=== PATIENT | male | born 1955 | race Caucasian/White ===

== ENCOUNTER 2019-07-15 09:29 | Outpatient (CLI) | payer MEDICARE, MEDICAID, SELFPAY ==
--- NOTE | 2019-07-15 09:33 | ECG_ITS ---
Measurements Intervals [place] Rate: 92 P: 25 [place]: 136 QRS: 19 QRSD: 146 T: 33 QT: 391 QTc: 484 Interpretive Statements SINUS RHYTHM RIGHT BUNDLE BRANCH BLOCK BASELINE ARTIFACT- I, II, III, AVR, AVL, AVF ABNORMAL ECG Electronically Signed On 07-15-2019 10:33:12 VICE PRESIDENT OF OPERATIONS by Waldemar Hedrick D.O.
== END 2019-07-15 09:30 | disposition home or self-care (01) ==
LOC: ANHSURGERY 09:33
PROVIDERS: PCP Internal Medicine; Visit Provider Orthopaedic Surgery
DX: I10 Essential (primary) hypertension (principal); Z01.812 Encounter for preprocedural laboratory examination; I45.10 Unspecified right bundle-branch block; R94.31 Abnormal electrocardiogram [ECG] [EKG]
CPT/HCPCS: 93005

== ENCOUNTER 2019-07-22 00:59 | Day surgery (SDC) | payer MEDICARE, MEDICAID, SELFPAY ==
[2019-07-14 08:50] VITALS: BMI 23.7
[2019-07-22] VITALS (9 sets, daily range): BP systolic 106–142; BP diastolic 60–81; PULSE 70–95; RESP 10–20; TEMP 36.5–36.6; O2SAT 93–100
--- NOTE | 2019-07-22 06:40 | WPDHPUPDATE1 ---
History and Physical Update Update Date/Time: 07/22/19 06:40 History and Physical has been reviewed, including an updated exam of the patient. There are NO changes in the patient's condition. Risks, benefits, and alternatives have been discussed and questions answered. Patient agrees to proceed with procedure.
[2019-07-22] MEDS: LACTATED RINGERS 1,000 ML 30 ML IV CONT ×2 (08:40→12:19)
--- NOTE | 2019-07-22 08:51 | WPDANESEPPF ---
Anes - Initial Pre Proc Eval Procedure: Operation Date: 07/22/19 10:00 Proposed Procedures p Right Shoulder Arthroscopy With Debridement, Biceps Tenodesis - Dain Olvera MD Date/Time: 07/22/19 08:51 Surgeon: Dain Olvera MD Pre Op Diagnosis: right shoulder biceps tear, rt shoulder arthritis Patient Data Age: 63 Gender: M Height: 1.85 m Weight: 81.65 kg Allergies Allergy/AdvReac Type Severity Reaction Status Date / Time lisinopril Allergy Unknown Swelling Verified 07/14/19 08:51 of Lip/Tongue/Throat Home Medications Medication Instructions Recorded Confirmed Type diltiazem HCl 240 mg 240 mg PO DAILY 04/26/19 07/14/19 History capsule,extended release 24 hr losartan 100 mg tablet 100 mg PO DAILY 04/26/19 07/14/19 History doxepin 10 mg capsule 10 mg PO DAILY #30 cap 06/10/19 07/14/19 Rx gabapentin 600 mg tablet 600 mg PO HS 06/10/19 07/14/19 History fluticasone propionate 50 2 spray NASAL DAILY #9.9 ml 07/12/19 07/14/19 Rx mcg/actuation nasal spray,suspension Vitamin B-12 1 tablet PO DAILY 07/14/19 07/14/19 History ascorbic acid (vitamin C) [Vitamin 1 g PO DAILY 07/14/19 07/14/19 History C] ECG: Date of Service: 07/15/19 Procedure(s): CA 12 lead EKG Accession Number(s): [id number] cc: ~ Measurements Intervals [place] Rate: 92 P: 25 [place]: 136 QRS: 19 QRSD: 146 T: 33 QT: 391 QTc: 484 Interpretive Statements SINUS RHYTHM RIGHT BUNDLE BRANCH BLOCK BASELINE ARTIFACT- I, II, III, AVR, AVL, AVF ABNORMAL ECG Electronically Signed On 07-15-2019 10:33:12 INSTRUCTIONAL COORDINATOR by Waldemar Hedrick D.O. Dictated By: Waldemar Hedrick DO 07/15/19 1000 Patient hx anesthesia problems: none Family hx anesthesia problems: none PMFSH Past Medical History Medical History (Updated 07/22/19 @ 08:52 by Jorje Stevens MD) Anxiety Arthritis Chronic neck and back pain Degenerative arthritis of right shoulder region Hypertension Labral tear of long head of biceps tendon Surgical History Surgical History H/O neck surgery Plate and screws: 2004 Status post spinal disc removal Low back disc removed 1996 Family History Family History (Updated 07/13/19 @ 13:53 by Radha Oneill, RT(R)) Mother Kidney disease Other Arthritis Social History Social History (Updated 07/13/19 @ 13:53 by Radha Oneill, RT(R)) Smoking status: Former smoker Smoking end date: 05/26/95 Alcohol intake: current Anes - Eval Final PreProcedure Day of Procedure 07/22/19 08:51 Patient weight: normal Heart: regular rate and rhythm Lungs: clear to auscultation and normal air movement Airway: Mallampati scale class II Neurological: alert and oriented Last oral intake: >/= 8 hours ASA classification: II Emergent: no Anesthetic plan: proceed Anesthesia type and monitoring: general LMA Informed Consent: The patient's anesthetic plan and its attendant risks and benefits were discussed with the patient/family/POA. Questions were solicited and answers provided to the satisfaction of the patient/family/POA.
[2019-07-22] MEDS: IBUPROFEN IV 800 MG/200 ML 800 MG/200 ML BAG 400 MG IVPB (09:45)
--- NOTE | 2019-07-22 10:15 | WPDANESEFPP ---
Anes - Eval Final PreProcedure Day of Procedure 07/22/19 10:15 Patient weight: normal Heart: regular rate and rhythm Lungs: clear to auscultation Airway: Mallampati scale class II Neurological: alert and oriented Last oral intake: >/= 8 hours ASA classification: III Emergent: no Anesthetic plan: proceed Anesthesia type and monitoring: general LMA and standard monitoring Other findings: chronic pain syndrome disabled Informed Consent: The patient's anesthetic plan and its attendant risks and benefits were discussed with the patient/family/POA. Questions were solicited and answers provided to the satisfaction of the patient/family/POA.
[2019-07-22] MEDS: ceFAZolin 2 GM/D5W 50 ML 2 GM/50 ML BAG IVPB (10:34)
[2019-07-22] MEDS: BUPIVACAINE/EPINEPHRINE 0.5% 30 ML VIAL 20 ML INFILTRATE (11:15)
--- NOTE | 2019-07-22 11:50 | PM.PROC ---
Procedure Note - Detailed Date of procedure: 07/22/19 Pre-op diagnosis: right shoulder biceps tear, rt shoulder arthritis Post-op diagnosis: same Procedure performed: Right shoulder arthroscopy with debridement, biceps tenotomy, subacromial debridement Description of procedure: Indications: Patient is a 63-year-old gentleman from pain, stiffness and weakness. MRI demonstrates tear of the probe biceps tendon at the labral anchor degenerative changes. He has failed conservative treatment physical therapy, home exercises cortisone injections. He presents now for operative treatment. What was done: Patient identified in the preoperative holding. Informed consent given. Operative extremity marked. Patient received intravenous antibiotics. Patient brought to the operating room where underwent general anesthetic by anesthesia team. Positioned supine on operating room table. Time-out performed confirming the patient, site of the surgery and the plan. Patient was then positioned in the beach chair position with careful securing of the head and neck. Right shoulder was then prepped and draped usual sterile surgical fashion using a ChloraPrep skin solution. Local anesthetic with 0.5% Marcaine with epinephrine was used at the portal sites. Standard posterior arthroscopy portal position with a 22 gauge spinal needle and infiltrating of the joint with saline. Eleven blade knife used to incise the skin and blunt penetration of the soft tissue and posterior capsule. Camera and inflow restarted through this portal. The shoulder was inspected and findings were noted. Anterior portal was then made using positioning from a 22 gauge spinal needle, 11 blade knife for the skin and blunt penetration of the anterior capsule. 4.5 mm arthroscopic shaver introduced and a debridement of the shoulder joint was performed including the glenoid and humeral head, undersurface of the rotator cuff, labrum and biceps anchor. Arthroscopic wand introduced in bleeding points were coagulated. Any excess synovitis was removed with the Wand. The proximal biceps was then released with the arthroscopic Wand. There was partial retraction of the tendon but not complete retraction. There is also adherence to the bicipital groove and the synovium and tenodesis was not felt to be indicated. The arthroscope was then positioned into the subacromial space. A lateral portal was made with 11 blade knife and blunt penetration and the shaver was introduced and debridement of the subacromial bursa was performed. Wounds thoroughly irrigated antibiotic solution. Subcutaneous tissue repaired with 3 0 Monocryl interrupted suture and the skin repaired with 3 Monocryl subcuticular running stitch. Steri-Strips applied followed by sterile dressing. Patient then awoke from anesthesia, extubated and taken to the recovery room in stable condition. All sponge needle and instrument counts correct in the case. 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 Degenerative tear biceps tendon at the anchor. Degenerative tear subscapularis. Rotator cuff supraspinatus and infraspinatus tendinitis with partial articular sided tear approximately 30%.
== END 2019-07-22 13:30 | disposition home or self-care (01) ==
PROVIDERS: PCP Internal Medicine; Visit Provider Orthopaedic Surgery
PROC: (CPT 29805; principal; 2019-07-22 10:00)
DX: M75.81 Other shoulder lesions, right shoulder (principal); M75.101 Unspecified rotator cuff tear or rupture of right shoulder, not specified as traumatic; M19.011 Primary osteoarthritis, right shoulder; M94.211 Chondromalacia, right shoulder; I10 Essential (primary) hypertension; F41.9 Anxiety disorder, unspecified; Z87.891 Personal history of nicotine dependence
CPT/HCPCS: 29823; A4565; J0690; J1100; J1741; J2250; J2270; J2370; J2405; J2704; J3010; J7120

== ENCOUNTER 2019-07-26 06:03 | Emergency (ER) | payer MEDICARE, MEDICAID, SELFPAY ==
--- NOTE | ~2019-07-26 | XR_ITS ---
EXAMINATION: XR shoulder RT min 2V DATE: 07/26/2019 06:47 INDICATION: Postoperative right shoulder pain. TECHNIQUE: AP internally rotated, AP oblique externally rotated and transscapular Y views of the righ t shoulder were obtained. COMPARISON: None FINDINGS: Normal alignment. No fracture.Minimal glenohumeral osteoarthritis. Mild to moderate acromioclavicula r osteoarthritis. C6-C7 anterior spinal fusion with anterior plate and screw fixation. Soft tissues a re unremarkable. Visualized portions of the right lung are clear. Mild discoid atelectasis in the lef t lower lung zone. IMPRESSION: Minimal right glenohumeral and mild to moderate acromioclavicular osteoarthritis. No acute osseous ab normality. Reviewed, dictated and finalized at location A. GRINDER IMPRESSION: Minimal right glenohumeral and mild to moderate acromioclavicular osteoarthriti s. No acute osseous abnormality.
--- NOTE | ~2019-07-26 | XR_ITS ---
EXAMINATION: XR elbow RT min 3V DATE: 07/26/2019 06:46 INDICATION: Postoperative right elbow pain TECHNIQUE: Anteroposterior, two oblique and lateral views of the right elbow were obtained. COMPARISON: None. FINDINGS: Alignment is normal. No fracture. Mild osteoarthritis at the right elbow. Corticated heterotopic ossi cles between the tip of the olecranon and the olecranon fossa. There appears be a right elbow joint e ffusion with displacement of the anterior and posterior fat pads. IMPRESSION: 1. Mild osteoarthritis at the right elbow with elbow joint effusion. Reviewed, dictated and finalized at location A. GER GENERAL
--- NOTE | 2019-07-26 06:04 | ED.GENADULT ---
HPI - General Adult General Chief complaint: Extremity Injury, Upper Stated complaint: R arm pain/surgery 4 days ago Time Seen by Provider: 07/26/19 06:04 Source: patient Mode of arrival: ambulatory Limitations: no limitations History of Present Illness HPI narrative: Patient is a 63-year-old male who presents to the emergency department for evaluation of right shoulder pain. Patient with recent right shoulder arthroscopy with debridement, biceps tenotomy, subacromial debridement performed by Dr. Olvera on 07/22. Patient reports a 2-day history of worsening right shoulder pain, described as sharp, burning in nature which originates in the shoulder, travels down the elbow and into his wrist. He reports tingling in this arm, but that it only occurs with movement. He reports it as a spasm type pain. His pain medication prescribed is not relieving this. He reports some tingling in his right hand. He denies any numbness. No difficulty moving his fingers. Patient denies fever, chills, neck pain, trauma or falls. Patient is scheduled for follow-up on August [address] Olvera's office. Related Data Home Medications Medication Instructions Recorded Confirmed diltiazem HCl 240 mg 240 mg PO DAILY 04/26/19 07/22/19 capsule,extended release 24 hr losartan 100 mg tablet 100 mg PO DAILY 04/26/19 07/22/19 gabapentin 600 mg tablet 600 mg PO HS 06/10/19 07/22/19 Vitamin B-12 1 tablet PO DAILY 07/14/19 07/22/19 ascorbic acid (vitamin C) [Vitamin 1 g PO DAILY 07/14/19 07/22/19 C] Allergies Allergy/AdvReac Type Severity Reaction Status Date / Time lisinopril Allergy Unknown Swelling Verified 07/26/19 06:18 of Lip/Tongue/Throat Review of Systems Review of Systems: Narrative: CONSTITUTIONAL: Denies fever, chills, or sweats. CARDIOVASCULAR: Denies chest pain RESPIRATORY: Denies cough or dyspnea. GASTROINTESTINAL: Denies abdominal pain GENITOURINARY: Denies dysuria or hematuria. SKIN: Denies rash or itching. MUSCULOSKELETAL: Denies back pain, reports right shoulder pain NEUROLOGIC: Denies numbness or weakness, reports tingling in the right arm PMFSH Past Medical History Medical History Anxiety Arthritis Chronic neck and back pain Degenerative arthritis of right shoulder region Hypertension Labral tear of long head of biceps tendon Surgical History Surgical History H/O neck surgery Plate and screws: 2005 Status post spinal disc removal Low back disc removed 1996 Family History Family History Mother Kidney disease Other Arthritis Social History Social History Smoking status: Former smoker Smoking end date: 05/26/95 Alcohol intake: current Exam Narrative: Exam Narrative: GENERAL: Awake, alert, conversant HEAD: Normocephalic, atraumatic. EYES: PERRLA and EOMI. ENT: Nares clear, no rhinorrhea or epistaxis. Mucous membranes moist. NECK: Supple. CHEST: Clear to auscultation. No respiratory distress. HEART: Regular rate and rhythm. No murmur heard. Normal peripheral pulses. ABDOMEN: Soft, nontender, nondistended, normal active bowel sounds. EXTREMITIES: Sling over the right shoulder. 3 incision sites, clean, dry, intact. Minimal ecchymoses. No erythema, edema. No active bleeding. No sign of wound breakdown or incision site infection. Intact sensation over the deltoid. There is elicited pain at the insertion point of the biceps, the lateral epicondyle. Intact sensation median, ulnar, radial nerve distribution. Radial pulses 2+. Financial Intern strength is 5 out of 5. SKIN: Warm, dry, no rash. NEURO: No focal deficits. Alert and oriented x3 Course Vital Signs Vital signs: Vital Signs Temperature 36.4 C 07/26/19 06:09 Pulse Rate 104 H 07/26/19 06:09 Respiratory Rate 20 07/26/19
[2019-07-26 06:09] VITALS: BP 121/70; PULSE 104; RESP 20; TEMP 36.4; O2SAT 100
[2019-07-26] MEDS: IBUPROFEN 600 MG TABLET PO (07:01)
[2019-07-26] MEDS: DIAZEPAM 5 MG TABLET PO (07:01)
[2019-07-26 08:00] VITALS: BP 125/78; PULSE 94; RESP 16; O2SAT 97
== END 2019-07-26 08:02 | disposition home or self-care (01) ==
PROVIDERS: Emergency Provider Emergency Medicine; PCP Internal Medicine
DX: G89.18 Other acute postprocedural pain (principal); M54.10 Radiculopathy, site unspecified; M19.90 Unspecified osteoarthritis, unspecified site; I10 Essential (primary) hypertension; Z87.891 Personal history of nicotine dependence
CPT/HCPCS: 73030; 73080; 99282; 99284; A9270

== ENCOUNTER 2020-02-12 09:49 | Outpatient (CLI) | payer MEDICARE, MEDICAID, SELFPAY ==
[2020-02-12 10:06] LABS: Basophils Absolute Auto 0.1 K/mm3 (0.0-0.1); Basophils Percent Auto 1.4 % (0.2-1.2); Eosinophils Absolute Auto 0.5 K/mm3 (0-0.3); Eosinophils Percent Auto 7.8 % (0-4.4); Hematocrit 36.3 % (42.0-52.0); Hemoglobin 12.6 g/dL (14.0-18.0); Immature Granulocyte Absolute 0.05 K/mm3 (0.00-0.031); Immature Granulocyte Percent A 0.7 % (0-0.5); Lymphocytes Absolute Auto 1.14 K/mm3 (0.9-3.2); Lymphocytes Percent Auto 16.5 % (18.3-44.2); Mean Corpuscular HGB Conc 34.7 g/dl (32-36); Mean Corpuscular Hemoglobin 34.4 pg (26-34); Mean Corpuscular Volume 99.2 fl (80-100); Mean Platelet Volume 8.9 fl (7.4-10.4); Monocytes Absolute Auto 0.9 K/mm3 (0.1-0.6); Monocytes Percent Auto 13.3 % (2.6-8.5); Neutrophils Absolute Auto 4.2 K/mm3 (1.3-6.7); Neutrophils Percent Auto 60.3 % (45.5-73.1); Platelet Count Result 208 k/mm3 (150-375); Red Blood Count 3.66 M/mm3 (4.6-6.20); Red Cell Distribution Width 12.7 % (11.5-14.5); White Blood Count 6.9 K/mm3 (4.5-10.0)
[2020-02-12 10:28] LABS: LDL Cholesterol Direct 62 mg/dL
[2020-02-12 10:33] LABS: Alanine Aminotransferase 38 U/L (4-50); Albumin Level 4.4 g/dL (3.5-5.1); Alkaline Phosphatase 139 U/L (38-126); Amylase 74 U/L (30-110); Anion Gap 6 mmol/L (8-16); Aspartate Amino Transferase 54 U/L (17-59); Bilirubin,Total 0.7 mg/dL (0.2-1.3); Blood Urea Nitrogen 14 mg/dL (9-20); Calcium 9.5 mg/dL (8.4-10.2); Carbon Dioxide 24 mmol/L (22-30); Chloride 104 mmol/L (98-107); Cholesterol 214 mg/dL (0-200); Estimated Glomerular Filt Rate > 60; Glucose 98 mg/dL (75-110); Lipase 81 U/L (23-300); Potassium 4.8 mmol/L (3.4-5.0); Sodium 134 mmol/L (137-145); Triglycerides 40 mg/dL (<150)
[2020-02-12 11:12] LABS: HDL Direct 134 mg/dL
== END 2020-02-12 09:50 | disposition home or self-care (01) ==
PROVIDERS: PCP Internal Medicine; Visit Provider Clinical Nurse Specialist
DX: R10.9 Unspecified abdominal pain (principal); I10 Essential (primary) hypertension
CPT/HCPCS: 36415; 80053; 80061; 82150; 83690; 85025

== ENCOUNTER 2020-03-13 00:44 | Outpatient (CLI) | payer MEDICARE, MEDICAID, SELFPAY ==
[2020-03-13 17:41] LABS: SARS-CoV-2 RNA PCR Negative
== END 2020-03-13 00:45 | disposition home or self-care (01) ==
LOC: ANHCOVIDDT 00:44
PROVIDERS: PCP Internal Medicine; Visit Provider Internal Medicine Gastroenterology
DX: Z01.812 Encounter for preprocedural laboratory examination (principal); Z20.828 Contact with and (suspected) exposure to other viral communicable diseases
CPT/HCPCS: 87635; C9803; U0003

== ENCOUNTER 2020-03-15 01:49 | Day surgery (SDC) | payer MEDICARE, MEDICAID, SELFPAY ==
[2020-03-09 12:56] VITALS: BMI 24.4
[2020-03-15 11:38] VITALS: BP 124/60; PULSE 88; RESP 20; TEMP 36.4; O2SAT 99; BMI 23.4
--- NOTE | 2020-03-15 11:38 | WPDHPUPDATE1 ---
History and Physical Update Update Date/Time: 03/15/20 11:38 History and Physical has been reviewed, including an updated exam of the patient. There are NO changes in the patient's condition. Risks, benefits, and alternatives have been discussed and questions answered. Patient agrees to proceed with procedure.
[2020-03-15] MEDS: LACTATED RINGERS 1,000 ML 150 ML IV CONT (11:40)
--- NOTE | 2020-03-15 11:42 | WPDANESEPPF ---
Anes - Initial Pre Proc Eval Procedure: Operation Date: 03/15/20 12:30 Proposed Procedures p Colonoscopy - Todd Wood MD Date/Time: 03/15/20 11:42 Surgeon: Todd Wood MD Pre Op Diagnosis: Abdominal Pain Patient Data Age: 64 Gender: M Height: 6 ft 1 in Weight: 80.7 kg Last Vital Signs Temp 97.6 F 03/15/20 11:38 Pulse 88 03/15/20 11:38 Resp 20 03/15/20 11:38 BP 124/60 03/15/20 11:38 Pulse Ox 99 03/15/20 11:38 Allergies Allergy/AdvReac Type Severity Reaction Status Date / Time lisinopril Allergy Unknown Swelling Verified 03/09/20 12:47 of Lip/Tongue/Throat Home Medications Medication Instructions Recorded Confirmed Type diltiazem HCl 240 mg 240 mg PO DAILY 04/26/19 03/15/20 History capsule,extended release 24 hr losartan 100 mg tablet 100 mg PO DAILY 04/26/19 03/15/20 History gabapentin 600 mg tablet 600 mg PO HS 06/10/19 03/09/20 History Vitamin B-12 1 tablet PO DAILY 07/14/19 03/09/20 History ascorbic acid (vitamin C) [Vitamin 1 g PO DAILY 07/14/19 03/09/20 History C] ondansetron HCl [Zofran] 8 mg PO Q8H PRN #10 tablet 07/22/19 03/09/20 Rx peg 3350-electrolytes 236 240 ml PO Q10M #4000 ml 02/21/20 Rx gram-22.74 gram-6.74 gram-5.86 gram solution Patient hx anesthesia problems: none Family hx anesthesia problems: none PMFSH Past Medical History Medical History (Updated 02/17/20 @ 08:32 by Todd Wood MD) Alcohol abuse Alkaline phosphatase elevation Anxiety Arthritis Chronic neck and back pain Degenerative arthritis of right shoulder region Hypertension Labral tear of long head of biceps tendon Surgical History Surgical History H/O neck surgery Plate and screws: 2004 H/O shoulder surgery Status post spinal disc removal Low back disc removed 1996 Family History Family History Mother Kidney disease Other Arthritis Social History Social History Smoking status: Former smoker Tobacco type: cigarettes Smoking end date: 05/26/95 Alcohol intake: current Drinks per week: 7 Alcohol use details: 1 beer a day Substance use: unknown Substance use type: unknown Spiritual care concerns: No Anes - Eval Final PreProcedure Day of Procedure 03/15/20 11:42 Patient weight: overweight Heart: regular rate and rhythm Lungs: clear to auscultation Airway: Mallampati scale class II Neurological: alert and oriented Last oral intake: >/= 8 hours ASA classification: III Emergent: no Anesthetic plan: proceed Anesthesia type and monitoring: general GIVS and standard monitoring Informed Consent: The patient's anesthetic plan and its attendant risks and benefits were discussed with the patient/family/POA. Questions were solicited and answers provided to the satisfaction of the patient/family/POA.
[2020-03-15 12:13] VITALS: BP 106/63; PULSE 73; RESP 14; O2SAT 100
[2020-03-15 12:23] VITALS: BP 110/62; PULSE 71; RESP 16; O2SAT 100
[2020-03-15 12:33] VITALS: BP 106/63; PULSE 68; RESP 15; O2SAT 100
== END 2020-03-15 12:57 | disposition home or self-care (01) ==
PROVIDERS: PCP Internal Medicine; Visit Provider Internal Medicine Gastroenterology
PROC: 0DJD8ZZ Inspection of Lower Intestinal Tract, Via Natural or Artificial Opening Endoscopic (ICD-10-PCS; CPT 45378; principal; 2020-03-15 12:30)
DX: Z12.11 Encounter for screening for malignant neoplasm of colon (principal); C18.2 Malignant neoplasm of ascending colon; C18.3 Malignant neoplasm of hepatic flexure; K57.30 Diverticulosis of large intestine without perforation or abscess without bleeding; K62.1 Rectal polyp; I10 Essential (primary) hypertension; F41.9 Anxiety disorder, unspecified; M19.90 Unspecified osteoarthritis, unspecified site; R74.8 Abnormal levels of other serum enzymes; Z87.891 Personal history of nicotine dependence; F10.10 Alcohol abuse, uncomplicated
CPT/HCPCS: 45380; 45381; 45385; 88305; J2704; J7120

== ENCOUNTER 2020-03-23 14:36 | Outpatient (CLI) | payer MEDICARE, MEDICAID, SELFPAY ==
--- NOTE | ~2020-03-23 | CT_ITS ---
EXAMINATION: CT abdomen pelvis w con DATE: 03/23/2020 15:58 INDICATION: Colon mass. TECHNIQUE: Computed tomography (CT) of the abdomen and pelvis was performed with 100 cc Omnipaque 350 intravenous contrast. The dose-length product was 374.18 mGy-cm. Automated exposure control and iter ative reconstruction technique were employed. COMPARISON: None. FINDINGS: There is a 5 cm mass of the right colon at the hepatic flexure, consistent with malignancy until present otherwise. Lung bases unremarkable. Fatty infiltration of the liver. No significant pleural or pericardial effus ion. Calcified granulomas of the spleen. The pancreas, adrenal glands and kidneys are unremarkable. G allbladder is contracted. Normal appendix. Colonic diverticulosis without diverticulitis. No osteolyt ic or osteoblastic lesions. Mild lumbar spondylosis with levocurvature. Mild atherosclerosis. No aneu rysm. No lymphadenopathy. IMPRESSION: 1. Right colon mass measuring approximately 5 cm located at the hepatic flexure, consistent with vandana ocarcinoma until proven otherwise. 2: Hepatic steatosis. Reviewed, dictated and finalized at location A. IMPRESSION: 1. Right colon mass measuring approximately 5 cm located at the hepatic flexure , consistent with adenocarcinoma until proven otherwise. 2: Hepatic steatosis.
[2020-03-23 15:48] LABS: Estimated Glomerular Filt Rate > 60
== END 2020-03-23 14:37 | disposition home or self-care (01) ==
PROVIDERS: PCP Internal Medicine; Visit Provider Internal Medicine Gastroenterology
DX: K63.89 Other specified diseases of intestine (principal); K76.0 Fatty (change of) liver, not elsewhere classified
CPT/HCPCS: 74177; Q9967

== ENCOUNTER 2020-04-28 08:51 | Outpatient (CLI) | payer MEDICARE, MEDICAID, SELFPAY ==
--- NOTE | ~2020-04-28 | US_ITS ---
EXAMINATION:US venous doppler LE BI INDICATION:Colon surgery. Abdomen pain. Swelling. TECHNIQUE: Multiple grayscale, color flow and Doppler images of the right and left lower extremity de ep venous systems were obtained and reviewed. COMPARISON:No prior studies for comparison. FINDINGS: The common femoral, superficial femoral and popliteal veins demonstrate normal respiratory variation, augmentation and compressibility. Color flow is also seen within the posterior tibial, pe roneal, greater saphenous and profunda veins. IMPRESSION: 1: No lower extremity deep venous thrombosis. Reviewed, dictated and finalized at location B. 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
[2020-04-28 10:10] LABS: Basophils Absolute Auto 0.1 K/mm3 (0.0-0.1); Basophils Percent Auto 0.8 % (0.2-1.2); Eosinophils Absolute Auto 0.2 K/mm3 (0-0.3); Hematocrit 35.5 % (42.0-52.0); Hemoglobin 12.3 g/dL (14.0-18.0); Immature Granulocyte Absolute 0.02 K/mm3 (0.00-0.031); Immature Granulocyte Percent A 0.3 % (0-0.5); Lymphocytes Absolute Auto 1.18 K/mm3 (0.9-3.2); Lymphocytes Percent Auto 19.8 % (18.3-44.2); Mean Corpuscular HGB Conc 34.6 g/dl (32-36); Mean Corpuscular Hemoglobin 34.4 pg (26-34); Mean Corpuscular Volume 99.2 fl (80-100); Mean Platelet Volume 9.3 fl (7.4-10.4); Monocytes Absolute Auto 0.6 K/mm3 (0.1-0.6); Monocytes Percent Auto 10.2 % (2.6-8.5); Neutrophils Absolute Auto 3.9 K/mm3 (1.3-6.7); Neutrophils Percent Auto 65.9 % (45.5-73.1); Platelet Count Result 241 k/mm3 (150-375); Red Blood Count 3.58 M/mm3 (4.6-6.20); Red Cell Distribution Width 11.9 % (11.5-14.5)
[2020-04-28 10:25] LABS: Alanine Aminotransferase 13 U/L (4-50); Albumin Level 3.9 g/dL (3.5-5.1); Alkaline Phosphatase 114 U/L (38-126); Anion Gap 6 mmol/L (8-16); Aspartate Amino Transferase 27 U/L (17-59); Bilirubin,Total 0.5 mg/dL (0.2-1.3); Blood Urea Nitrogen 7 mg/dL (9-20); Calcium 9.1 mg/dL (8.4-10.2); Carbon Dioxide 27 mmol/L (22-30); Chloride 104 mmol/L (98-107); Estimated Glomerular Filt Rate > 60; Glucose 106 mg/dL (75-110); Potassium 4.3 mmol/L (3.4-5.0); Sodium 137 mmol/L (137-145)
== END 2020-04-28 08:52 | disposition home or self-care (01) ==
LOC: ANHIMG 08:56
PROVIDERS: PCP Internal Medicine; Visit Provider Nurse Practitioner
DX: C18.9 Malignant neoplasm of colon, unspecified (principal); R79.89 Other specified abnormal findings of blood chemistry; R60.0 Localized edema; M79.669 Pain in unspecified lower leg
CPT/HCPCS: 36415; 80053; 85025; 93970

== ENCOUNTER 2023-02-27 08:14 | Outpatient (CLI) | payer MEDICARE, MEDICAID, SELFPAY ==
[2023-02-27 18:43] LABS: Basophils Absolute Auto 0.1 K/mm3 (0.0-0.1); Basophils Percent Auto 1.1 % (0.2-1.2); Eosinophils Absolute Auto 0.2 K/mm3 (0-0.3); Eosinophils Percent Auto 3.6 % (0-4.4); Hematocrit 36.4 % (42.0-52.0); Hemoglobin 12.3 g/dL (14.0-18.0); Immature Granulocyte Absolute 0.02 K/mm3 (0.00-0.031); Immature Granulocyte Percent A 0.3 % (0-0.5); Lymphocytes Absolute Auto 1.21 K/mm3 (0.9-3.2); Lymphocytes Percent Auto 19.8 % (18.3-44.2); Mean Corpuscular HGB Conc 33.8 g/dl (32-36); Mean Corpuscular Hemoglobin 33.3 pg (26-34); Mean Corpuscular Volume 98.6 fl (80-100); Mean Platelet Volume 9.8 fl (7.4-10.4); Monocytes Absolute Auto 0.7 K/mm3 (0.1-0.6); Monocytes Percent Auto 11.8 % (2.6-8.5); Neutrophils Absolute Auto 3.9 K/mm3 (1.3-6.7); Neutrophils Percent Auto 63.4 % (45.5-73.1); Platelet Count Result 188 k/mm3 (150-375); Red Blood Count 3.69 M/mm3 (4.6-6.20); Red Cell Distribution Width 11.7 % (11.5-14.5); White Blood Count 6.1 K/mm3 (4.5-10.0)
[2023-02-27 18:45] LABS: Alanine Aminotransferase 23 U/L (6-50); Albumin Level 4.5 g/dL (3.5-5.1); Alkaline Phosphatase 113 U/L (38-126); Anion Gap 9 mmol/L (8-16); Aspartate Amino Transferase 39 U/L (17-59); Bilirubin,Total 0.5 mg/dL (0.2-1.3); Blood Urea Nitrogen 9 mg/dL (9-20); Calcium 9.1 mg/dL (8.4-10.2); Carbon Dioxide 24 mmol/L (22-30); Chloride 103 mmol/L (98-107); Cholesterol 212 mg/dL (0-200); Estimated Glomerular Filt Rate > 60; Glucose 89 mg/dL (65-110); HDL Direct 68 mg/dL; Sodium 136 mmol/L (137-145); Triglycerides 225 mg/dL (<150)
[2023-02-27 18:56] LABS: LDL Cholesterol Direct 95 mg/dL
[2023-02-27 19:03] LABS: Iron 95 ug/dL (49-181)
[2023-02-27 19:14] LABS: Percent Iron Saturation 36 % (20-50); Prostate Specific Antigen 1.2 ng/mL (< OR = 4.0); Thyroid Stimulating Hormone 0.779 uIU/mL (0.465-4.680)
[2023-02-27 19:49] LABS: Folic Acid 13.2 ng/mL (2.76->20)
== END 2023-02-27 08:15 | disposition home or self-care (01) ==
PROVIDERS: PCP Internal Medicine; Visit Provider Nurse Practitioner
DX: Z12.5 Encounter for screening for malignant neoplasm of prostate (principal); Z13.29 Encounter for screening for other suspected endocrine disorder; Z13.220 Encounter for screening for lipoid disorders; E78.5 Hyperlipidemia, unspecified; D64.9 Anemia, unspecified; G62.9 Polyneuropathy, unspecified
CPT/HCPCS: 36415; 80053; 80061; 82607; 82728; 82746; 83540; 83550; 84153; 84443; 85025; G0103

== ENCOUNTER 2023-03-20 05:49 | Day surgery (SDC) | payer MEDICARE, MEDICAID, SELFPAY ==
[2023-02-26 14:13] VITALS: BMI 23.8
[2023-02-27 12:07] VITALS: BMI 23.7
[2023-03-20 07:29] VITALS: BP 126/72; PULSE 123; RESP 16; TEMP 36.6; O2SAT 99
[2023-03-20] MEDS: LACTATED RINGERS 1,000 ML 150 ML IV CONT (07:32)
--- NOTE | 2023-03-20 08:15 | PM.HPGS ---
History of Present Illness History of Present Illness Consent: Risks, benefits, and alternatives have been discussed and questions answered. Patient agrees to proceed with procedure. Chief complaint: Acq. Absence other specified part digestive tract Narrative: Catherine Storey is a 67 year old male with Rt sided colon cancer in 2019, last colonoscopy 1 year ago at the [place] [facility] Systems Constitutional: Constitutional: Denies headache(s) and Denies weakness Eyes: Eyes: Denies blurry vision ENT: Reports Normal hearing present, Denies headache(s) and Denies neck pain Cardiovascular: Cardiovascular: Denies chest pain and Denies dyspnea Respiratory: Respiratory: Denies dyspnea Gastrointestinal: Gastrointestinal: Reports no additional gastrointestinal complaints Genitourinary: Genitourinary: Denies dysuria Musculoskeletal: Musculoskeletal: Denies neck pain Integumentary/Breasts: Skin/Breast: Denies dry skin Neurologic: Reports Normal hearing present, Denies headache(s) and Denies weakness Psychiatric: Psychiatric: Denies anxiety Endocrine: Endocrine: Denies change in body appearance Hematologic/Lymphatic: Hematologic/Lymphatic: Denies easy bleeding Allergic/Immunologic: Allergic/Immunologic: Denies urticaria PMFSH Past Medical History Medical History (Updated 03/10/23 @ 10:37 by Alka Blake NP) Alcohol abuse Alkaline phosphatase elevation Anxiety Arthritis Chronic neck and back pain Colon cancer Degenerative arthritis of right shoulder region Hypertension Labral tear of long head of biceps tendon Malignant neoplasm of transverse colon Mass of colon Surgical History Surgical History (Updated 02/25/23 @ 10:12 by Alka Blake NP) H/O neck surgery Plate and screws: 2004 H/O shoulder surgery History of partial surgical removal of colon Status post spinal disc removal Low back disc removed 1996 Family History Family History Mother Kidney disease Other Arthritis Social History Social History (Updated 02/25/23 @ 09:57 by Trisha Alejo CMA) Smoking status: Former smoker Tobacco type: cigarettes Smoking end date: 05/26/95 Alcohol intake: current Drinks per week: 7 Alcohol use details: 1 beer a day Substance use: unknown Substance use type: unknown Lack of Transportation: No Lack of Food: Never True Current Housing: I Have Housing Concerned About Future Housing: No Difficulty Paying Gas/Electric Bills: No Difficulty Paying for Meds: No Currently Unemployed: YES Education: Trade/Vocational Certificate Living arrangements: alone Spiritual care concerns: No Meds Home Medications and Allergies Home Medications Medication Instructions Recorded Confirmed Type Vitamin B-12 1 tablet PO DAILY 07/14/19 03/20/23 History ascorbic acid (vitamin C) 1,000 mg 1 g PO DAILY 07/14/19 03/20/23 History tablet (Vitamin C) losartan 100 mg tablet 100 mg PO DAILY #90 tabs 06/23/20 03/20/23 Rx gabapentin 600 mg tablet 600 mg PO BID #180 tabs 02/25/23 03/20/23 Rx garlic 500 mg capsule 500 mg PO DAILY 02/25/23 03/20/23 History multivitamin (Multiple Vitamins 1 tablet PO .every other day 02/25/23 03/20/23 History tablet) Allergies Allergy/AdvReac Type Severity Reaction Status Date / Time lisinopril Allergy Unknown Swelling Verified 03/20/23 07:15 of Lip/Tongue/Throat Vital Signs Vital Signs - 24 hr 03/20/23 07:29 Temperature 97.8 F Pulse Rate 123 H Respiratory Rate 16 Blood Pressure 126/72 Pulse Oximetry 99 Oxygen Delivery Room Air Exam Const: General: comfortable and no acute distress HENMT: Face/Nose/Sinus: Normal nares present Eyes: General: appearance normal, both eyes and all related structures Neck: Neck: no JVD Resp: Auscultation: clear to auscultation bilaterally Cardio: Rate: regular rate Rhythm: regular rhythm GI: Inspection: non-distende
--- NOTE | 2023-03-20 08:18 | WPDANESEPPF ---
Anes - Initial Pre Proc Eval Procedure: Operation Date: 03/20/23 08:30 Proposed Procedures p Diagnostic Colonoscopy - Todd Wood MD Date/Time: 03/20/23 08:18 Surgeon: Todd Wood MD Pre Op Diagnosis: Acq. Absence other specified part digestive tract Patient Data Age: 67 Gender: M Height: 1.85 m Weight: 79.4 kg Last Vital Signs Temp 36.6 C 03/20/23 07:29 Pulse 123 H 03/20/23 07:29 Resp 16 03/20/23 07:29 BP 126/72 03/20/23 07:29 Pulse Ox 99 03/20/23 07:29 O2 Del Method Room Air 03/20/23 07:29 Allergies Allergy/AdvReac Type Severity Reaction Status Date / Time lisinopril Allergy Unknown Swelling Verified 03/20/23 07:15 of Lip/Tongue/Throat Home Medications Medication Instructions Recorded Confirmed Type Vitamin B-12 1 tablet PO DAILY 07/14/19 03/20/23 History ascorbic acid (vitamin C) 1,000 mg 1 g PO DAILY 07/14/19 03/20/23 History tablet (Vitamin C) losartan 100 mg tablet 100 mg PO DAILY #90 tabs 06/23/20 03/20/23 Rx gabapentin 600 mg tablet 600 mg PO BID #180 tabs 02/25/23 03/20/23 Rx garlic 500 mg capsule 500 mg PO DAILY 02/25/23 03/20/23 History multivitamin (Multiple Vitamins 1 tablet PO .every other day 02/25/23 03/20/23 History tablet) Patient hx anesthesia problems: none Family hx anesthesia problems: none Results Review: All pre-operative results and documents have been reviewed as part of the pre-operative evaluation. [facility] Past Medical History Medical History Alcohol abuse Alkaline phosphatase elevation Anxiety Arthritis Chronic neck and back pain Colon cancer Degenerative arthritis of right shoulder region Hypertension Labral tear of long head of biceps tendon Malignant neoplasm of transverse colon Mass of colon Surgical History Surgical History H/O neck surgery Plate and screws: 2004 H/O shoulder surgery History of partial surgical removal of colon Status post spinal disc removal Low back disc removed 1996 Family History Family History Mother Kidney disease Other Arthritis Social History Social History Smoking status: Former smoker Tobacco type: cigarettes Smoking end date: 05/26/95 Alcohol intake: current Drinks per week: 7 Alcohol use details: 1 beer a day Substance use: unknown Substance use type: unknown Lack of Transportation: No Lack of Food: Never True Current Housing: I Have Housing Concerned About Future Housing: No Difficulty Paying Gas/Electric Bills: No Difficulty Paying for Meds: No Currently Unemployed: YES Education: Trade/Vocational Certificate Living arrangements: alone Spiritual care concerns: No Anes - Eval Final PreProcedure Day of Procedure 03/20/23 08:18 Patient weight: normal Heart: regular rate and rhythm Lungs: clear to auscultation Airway: Mallampati scale class II Neurological: alert and oriented Last oral intake: >/= 8 hours ASA classification: III Emergent: no Anesthetic plan: proceed Anesthesia type and monitoring: general GIVS and standard monitoring Results Review: All pre-operative results and documents have been reviewed as part of the pre-operative evaluation. Informed Consent: The patient's anesthetic plan and its attendant risks and benefits were discussed with the patient/family/POA. Questions were solicited and answers provided to the satisfaction of the patient/family/POA.
[2023-03-20 08:34] VITALS: BP 102/87; PULSE 96; RESP 16; O2SAT 99
--- NOTE | 2023-03-20 08:41 | WPDANESPN ---
Anes - Prog Note Post-Op Date/Time: 03/20/23 08:41 Cardiovascular status: normal Respiratory status: normal Airway patency: baseline Mental status: baseline Post-Op hydration status: normal Vital Signs: Last Vital Signs Temp 36.6 C 03/20/23 07:29 Pulse 123 H 03/20/23 07:29 Resp 16 03/20/23 07:29 BP 126/72 03/20/23 07:29 Pulse Ox 99 03/20/23 07:29 O2 Del Method Room Air 03/20/23 07:29 Pain Score (VAS): 0/10 I/O: Intake & Output 03/19/23 03/20/23 03/20/23 23:59 07:59 15:59 Intake Total 200 Balance 200 Patient Feedback: Patient satisfied with anesthetic care.
[2023-03-20 08:44] VITALS: BP 117/82; PULSE 87; RESP 16; O2SAT 100
[2023-03-20 08:55] VITALS: BP 127/73; PULSE 80; RESP 16; O2SAT 100
--- NOTE | 2023-03-20 09:21 | SUR.PHASEII ---
0900; PT WAITING ON RIDE
== END 2023-03-20 09:15 | disposition home or self-care (01) ==
PROVIDERS: PCP Internal Medicine; Visit Provider Internal Medicine Gastroenterology
PROC: 0DJD8ZZ Inspection of Lower Intestinal Tract, Via Natural or Artificial Opening Endoscopic (ICD-10-PCS; CPT 45378; principal; 2023-03-20 08:30)
DX: Z85.038 Personal history of other malignant neoplasm of large intestine (principal); K57.30 Diverticulosis of large intestine without perforation or abscess without bleeding; K63.89 Other specified diseases of intestine; K64.8 Other hemorrhoids
CPT/HCPCS: 45378

== ENCOUNTER 2023-08-05 08:36 | Outpatient (CLI) | payer MEDICARE, MEDICAID, SELFPAY ==
--- NOTE | 2023-08-05 11:00 | NEURO_ITS ---
Impression: # Non-diabetic complains of numbness and dizziness. # Motor/sensory axonal neuropathy. # Abnormal Needle/EMG exam with decreased motor unit potentials distally without fibrillation. Nerve Conduction Studies Anti Sensory Summary Table Stim Site NR Peak (ms) P-T Amp (?V) Site1 Site2 Delta-P (ms) Dist (cm) Juan Luis (m/s) Left Saphenous Anti Sensory (Ant Med Mall) NO RESPONSE 14cm NR 14cm Ant Med Mall 0.0 Right Saphenous Anti Sensory (Ant Med Mall) NO RESPONSE 14cm NR 14cm Ant Med Mall 0.0 Left Sup Fibular Anti Sensory (Ant Lat Mall) NO RESPONSE 14 cm NR 14 cm Ant Lat Mall 16.0 Right Sup Fibular Anti Sensory (Ant Lat Mall) NO RESPONSE 14 cm NR 14 cm Ant Lat Mall 16.0 Left Sural Anti Sensory (Lat Mall) Calf 4.4 8.1 Calf Lat Mall 4.4 16.0 36 Right Sural Anti Sensory (Lat Mall) Calf 4.6 9.8 Calf Lat Mall 4.6 16.0 35 Motor Summary Table Stim Site NR Onset (ms) O-P Amp (mV) Site1 Site2 Delta-0 (ms) Dist (cm) Juan Luis (m/s) Left Peroneal Motor (Vastus Med) Ankle 4.5 0.7 Popit Ankle 11.8 45.0 38 Popit 16.3 0.8 Right Peroneal Motor (Vastus Med) Ankle 4.1 1.6 Popit Ankle 11.8 45.0 38 Popit 15.9 2.0 Left Tibial Motor (Abd Hernandez Brev) Ankle 4.5 0.6 Knee Ankle 11.6 45.0 39 Knee 16.1 0.2 Right Tibial Motor (Abd Hernandez Brev) Ankle 4.6 2.3 Knee Ankle 12.4 46.0 37 Knee 17.0 2.2 F Wave Studies NR F-Lat (ms) L-R F-Lat (ms) Left Peroneal (Mrkrs) (EDB) 61.07 0.77 Right Peroneal (Mrkrs) (EDB) 61.84 0.77 Left Tibial (Mrkrs) (Abd Hallucis) 65.94 1.20 Right Tibial (Mrkrs) (Abd Hallucis) 64.73 1.20 EMG Side Muscle Nerve Root Ins Act Fibs Amp Dur Recrt Comment Right AntTibialis Dp Br Fibular L4-5 Nml Nml Nml Nml Nml Right Gastroc Tibial S1-2 Nml Nml Nml Nml Nml Right Fibularis Long Sup Br Fibular L5-S1 Nml Nml Nml Nml Nml Right Flex Dig Long Tibial L5-S2 Nml Nml Nml >12ms +1 Right Ext Dig Brev Dp Br Fibular L5, S1 Nml Nml Nml >12ms +2 Left AntTibialis Dp Br Fibular L4-5 Nml Nml Nml Nml Nml Left Gastroc Tibial S1-2 Nml Nml Nml Nml Nml Left Fibularis Long Sup Br Fibular L5-S1 Nml Nml Nml Nml Nml Left Flex Dig Long Tibial L5-S2 Nml Nml Nml >12ms +1 Left Ext Dig Brev Dp Br Fibular L5, S1 Nml Nml Nml >12ms +2 MTDD
== END 2023-08-05 08:37 | disposition home or self-care (01) ==
PROVIDERS: PCP Internal Medicine; Visit Provider Nurse Practitioner
DX: R94.131 Abnormal electromyogram [EMG] (principal); G62.9 Polyneuropathy, unspecified
CPT/HCPCS: 95886; 95911

== ENCOUNTER 2023-08-09 09:29 | Outpatient (CLI) | payer MEDICARE, MEDICAID, SELFPAY ==
--- NOTE | ~2023-08-09 | MR_ITS ---
EXAMINATION: MR shoulder RT wo con DATE: 08/09/2023 10:12 INDICATION: M19.011 - Primary osteoarthritis, right shoulder . TECHNIQUE: Magnetic resonance imaging (MRI) of the right shoulder was performed without intravenous c ontrast. Sequences included axial PD-weighted FS FSE, coronal oblique PD-weighted FS FSE and T2-weigh olena FS FSE, and sagittal oblique T2-weighted FS FSE and T1-weighted FSE. COMPARISON: 02/08/2019 X-ray right shoulder 07/22/2023, images only. FINDINGS: Coracoacromial arch: Mild anterolateral downsloping of the type II acromion. Subacromial narrowing. No subcoracoid narrowi ng. Inferior osteophytosis at the AC joint. Rotator cuff: 7 mm rim rent tear at the insertion of the supraspinatus. Mild fatty atrophy of the supraspinatus and infraspinatus. Teres minor is intact. Partial tear of the subscapularis. Biceps tendon and glenoid labrum: Medial subluxation of the long head of biceps tendon. Focal thickening and abnormal signal in the rita g head of biceps tendon as it exits the bicipital groove. Significant degenerative change in the dave oid labrum. Labral tear involving the posterior and posterior inferior labrum. Fluid: No significant fluid collection. Bones/cartilage: Moderate osteoarthritic changes in the AC joint and glenohumeral joint. Multiple subchondral and subc ortical cysts in the humeral head and labrum. IMPRESSION: Rim rent tear of the supraspinatus. Osseous outlet compromise. Posterior and posterior inferior labral tear, in a background of significant degenerative change. Partial tear of the subscapularis with medial subluxation of the long head of biceps tendon. Focal tendinopathy of the long head of biceps tendon. Moderate AC joint and glenohumeral joint osteoarthritis. Reviewed, dictated and finalized at location K. IMPRESSION: Rim rent tear of the supraspinatus. Osseous outlet compromise. Posterior and posterior inferior labral tear, in a background of significant de generative change. Partial tear of the subscapularis with medial subluxation of the long head of b iceps tendon. Focal tendinopathy of the long head of biceps tendon. Moderate AC joint and glenohumeral joint osteoarthritis.
== END 2023-08-09 09:30 | disposition home or self-care (01) ==
LOC: ANHIMG 09:33
PROVIDERS: PCP Internal Medicine; Visit Provider Clinical Nurse Specialist
DX: M19.011 Primary osteoarthritis, right shoulder (principal); M75.21 Bicipital tendinitis, right shoulder; M75.111 Incomplete rotator cuff tear or rupture of right shoulder, not specified as traumatic; S43.431A Superior glenoid labrum lesion of right shoulder, initial encounter; X58.XXXA Exposure to other specified factors, initial encounter
CPT/HCPCS: 73221

== ENCOUNTER 2023-09-19 10:10 | Outpatient (CLI) | payer MEDICARE, MEDICAID, SELFPAY ==
[2023-09-19 13:51] LABS: Basophils Absolute Auto 0.1 K/mm3 (0.0-0.1); Basophils Percent Auto 0.8 % (0.2-1.2); Eosinophils Absolute Auto 0.1 K/mm3 (0-0.3); Eosinophils Percent Auto 2.1 % (0-4.4); Hematocrit 39.3 % (42.0-52.0); Hemoglobin 13.1 g/dL (14.0-18.0); Immature Granulocyte Absolute 0.03 K/mm3 (0.00-0.031); Immature Granulocyte Percent A 0.5 % (0-0.5); Lymphocytes Absolute Auto 1.03 K/mm3 (0.9-3.2); Lymphocytes Percent Auto 16.8 % (18.3-44.2); Mean Corpuscular HGB Conc 33.3 g/dl (32-36); Mean Corpuscular Hemoglobin 32.6 pg (26-34); Mean Corpuscular Volume 97.8 fl (80-100); Mean Platelet Volume 10.2 fl (7.4-10.4); Monocytes Absolute Auto 0.8 K/mm3 (0.1-0.6); Monocytes Percent Auto 13.7 % (2.6-8.5); Neutrophils Absolute Auto 4.1 K/mm3 (1.3-6.7); Neutrophils Percent Auto 66.1 % (45.5-73.1); Platelet Count Result 201 k/mm3 (150-375); Red Blood Count 4.02 M/mm3 (4.6-6.20); Red Cell Distribution Width 12.5 % (11.5-14.5); White Blood Count 6.1 K/mm3 (4.5-10.0)
[2023-09-19 14:00] LABS: Cholesterol 220 mg/dL (0-200); HDL Direct 97 mg/dL; Triglycerides 92 mg/dL (<150)
[2023-09-19 14:13] LABS: LDL Cholesterol Direct 109 mg/dL
[2023-09-19 14:33] LABS: Alanine Aminotransferase 25 U/L (6-50); Alkaline Phosphatase 127 U/L (38-126); Anion Gap 6 mmol/L (4-12); Aspartate Amino Transferase 58 U/L (17-59); Bilirubin,Total 1.1 mg/dL (0.2-1.3); Blood Urea Nitrogen 11 mg/dL (9-20); Carbon Dioxide 27 mmol/L (22-30); Chloride 101 mmol/L (98-107); Estimated Glomerular Filt Rate > 60; Glucose 112 mg/dL (65-110); Potassium 4.6 mmol/L (3.4-5.0); Sodium 134 mmol/L (137-145)
== END 2023-09-19 10:11 | disposition home or self-care (01) ==
PROVIDERS: Nurse Practitioner; PCP Internal Medicine; Visit Provider Nurse Practitioner
DX: E78.5 Hyperlipidemia, unspecified (principal); R19.7 Diarrhea, unspecified; I10 Essential (primary) hypertension; D64.9 Anemia, unspecified
CPT/HCPCS: 36415; 80053; 80061; 82728; 85025

== ENCOUNTER 2024-01-29 11:26 | Outpatient (CLI) | payer MEDICARE, MEDICAID, SELFPAY ==
[2024-01-29 14:08] LABS: Free T4 Free Thyroxine 0.84 ng/mL (0.78-2.19)
[2024-01-31 05:18] LABS: Triiodothyronine T3 Free 3.4 pg/mL (2.3-4.2)
[2024-02-02 12:04] LABS: Vitamin B1 21 nmol/L (8-30)
[2024-02-02 19:14] LABS: Vitamin B6 39.4 ng/mL (2.1-21.7)
[2024-02-02 19:54] LABS: Red Blood Cell Folate 721 ng/mL RBC (>280)
[2024-02-03 16:09] LABS: Methylmalonic Acid 154 nmol/L (69-390); Vitamin D 1,25 (OH)2 Total 23 pg/mL (18-72); Vitamin D2 1,25 (OH)2 <8 pg/mL; Vitamin D3 1,25 (OH)2 23 pg/mL
[2024-02-03 18:14] LABS: Immunofixation, Serum Normal pattern.
== END 2024-01-29 11:27 | disposition home or self-care (01) ==
LOC: ANHLAB 11:34
PROVIDERS: PCP Internal Medicine; Visit Provider Psychiatry & Neurology Neurology
DX: G62.89 Other specified polyneuropathies (principal); I10 Essential (primary) hypertension; E55.9 Vitamin D deficiency, unspecified
CPT/HCPCS: 36415; 82607; 82652; 82747; 83090; 83921; 84207; 84425; 84439; 84443; 84481; 86038; 86039; 86334; 86430

== ENCOUNTER 2024-04-27 11:08 | Outpatient (CLI) | payer MEDICARE, MEDICAID, SELFPAY ==
[2024-04-27 12:57] LABS: Basophils Absolute Auto 0.1 K/mm3 (0.0-0.1); Basophils Percent Auto 1.2 % (0.2-1.2); Eosinophils Absolute Auto 0.2 K/mm3 (0-0.3); Eosinophils Percent Auto 2.5 % (0-4.4); Hematocrit 38.3 % (42.0-52.0); Immature Granulocyte Absolute 0.02 K/mm3 (0.00-0.031); Immature Granulocyte Percent A 0.3 % (0-0.5); Lymphocytes Absolute Auto 1.16 K/mm3 (0.9-3.2); Lymphocytes Percent Auto 19.3 % (18.3-44.2); Mean Corpuscular HGB Conc 33.9 g/dl (32-36); Mean Corpuscular Hemoglobin 33.1 pg (26-34); Mean Corpuscular Volume 97.5 fl (80-100); Mean Platelet Volume 9.7 fl (7.4-10.4); Monocytes Absolute Auto 0.8 K/mm3 (0.1-0.6); Monocytes Percent Auto 13.7 % (2.6-8.5); Neutrophils Absolute Auto 3.8 K/mm3 (1.3-6.7); Platelet Count Result 202 k/mm3 (150-375); Red Blood Count 3.93 M/mm3 (4.6-6.20); Red Cell Distribution Width 11.5 % (11.5-14.5)
[2024-04-27 13:26] LABS: Alanine Aminotransferase 18 U/L (6-50); Albumin Level 4.9 g/dL (3.5-5.1); Alkaline Phosphatase 120 U/L (38-126); Anion Gap 7 mmol/L (4-12); Aspartate Amino Transferase 49 U/L (17-59); Bilirubin,Total 0.9 mg/dL (0.2-1.3); Blood Urea Nitrogen 15 mg/dL (9-20); Calcium 9.7 mg/dL (8.4-10.2); Carbon Dioxide 26 mmol/L (22-30); Chloride 99 mmol/L (98-107); Estimated Glomerular Filt Rate > 60; Glucose 106 mg/dL (65-110); Potassium 4.9 mmol/L (3.4-5.0); Sodium 132 mmol/L (137-145)
== END 2024-04-27 11:09 | disposition home or self-care (01) ==
LOC: ANHGOSHLAB 11:10
PROVIDERS: PCP Internal Medicine; Visit Provider Nurse Practitioner
DX: I10 Essential (primary) hypertension (principal); Z13.29 Encounter for screening for other suspected endocrine disorder
CPT/HCPCS: 36415; 80053; 85025

== ENCOUNTER 2024-06-02 13:55 | Outpatient (CLI) | payer MEDICARE, MEDICAID, SELFPAY ==
--- NOTE | ~2024-06-02 | MR_ITS ---
EXAMINATION: MR cervical spine wo con DATE: 06/02/2024 14:42 INDICATION: Neck pain. TECHNIQUE: Magnetic resonance imaging (MRI) of the cervical spine was performed without intravenous c ontrast. COMPARISON: None FINDINGS: Bone alignment is normal. There is mild chronic height loss of T1 and T3 vertebral bodies. There are changes of anterior fusion procedure at C6-C7 with anterior plate and screws. There are mamta dging bulky anterior osteophytes from C4 to C7, consistent with diffuse idiopathic skeletal hyperosto sis (DISH). There is mildly decreased disc height at C3-C4. The spinal cord signal intensity is ginny l. The following disc levels are specifically discussed: C2-C3: There is a central protrusion. There is mild left uncovertebral joint osteoarthritis. There is severe bilateral facet joint osteoarthritis. There is mild bilateral neural foraminal stenosis. Ther e is mild central canal stenosis. C3-C4: There is a central extrusion. There is mild bilateral uncovertebral joint osteoarthritis. Ther e is severe bilateral facet joint osteoarthritis. There is mild bilateral neural foraminal stenosis. There is mild central canal stenosis. C4-C5: The disc does not extend beyond the endplate margin. There is no uncovertebral joint hypertrop hy. There is no facet joint osteoarthritis. There is no neural foraminal stenosis. There is no centra l canal stenosis. C5-C6: The disc does not extend beyond the endplate margin. There is mild right uncovertebral joint h ypertrophy. There is no facet joint osteoarthritis. There is mild right neural foraminal stenosis. Th ere is no central canal stenosis. C6-C7: The disc does not extend beyond the endplate margin. There is mild bilateral uncovertebral willie nt hypertrophy. There is no facet joint osteoarthritis. There is mild bilateral neural foraminal sten osis. There is no central canal stenosis. C7-T1: The disc is bulging. There is no uncovertebral joint osteoarthritis. There is mild bilateral f acet joint osteoarthritis. There is no neural foraminal stenosis. There is no central canal stenosis. IMPRESSION: 1. Mild cervical spondylosis. 2. Anterior fusion procedure at C6-C7. 3. DISH. Reviewed, dictated and finalized at location A. 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
== END 2024-06-02 13:56 | disposition home or self-care (01) ==
PROVIDERS: PCP Internal Medicine; Visit Provider Nurse Practitioner
DX: M54.2 Cervicalgia (principal); M47.812 Spondylosis without myelopathy or radiculopathy, cervical region; M43.22 Fusion of spine, cervical region
CPT/HCPCS: 72141

== ENCOUNTER 2024-09-15 15:01 | Outpatient (CLI) | payer MEDICARE, MEDICAID, SELFPAY ==
[2024-09-15 15:17] LABS: Basophils Absolute Auto 0.1 K/mm3 (0.0-0.1); Basophils Percent Auto 1.1 % (0.2-1.2); Eosinophils Absolute Auto 0.2 K/mm3 (0-0.3); Eosinophils Percent Auto 2.8 % (0-4.4); Hematocrit 35.4 % (42.0-52.0); Hemoglobin 12.4 g/dL (14.0-18.0); Immature Granulocyte Absolute 0.02 K/mm3 (0.00-0.031); Immature Granulocyte Percent A 0.4 % (0-0.5); Lymphocytes Absolute Auto 1.31 K/mm3 (0.9-3.2); Lymphocytes Percent Auto 23.1 % (18.3-44.2); Mean Corpuscular Hemoglobin 32.8 pg (26-34); Mean Corpuscular Volume 93.7 fl (80-100); Mean Platelet Volume 8.8 fl (7.4-10.4); Monocytes Absolute Auto 0.8 K/mm3 (0.1-0.6); Monocytes Percent Auto 14.1 % (2.6-8.5); Neutrophils Absolute Auto 3.3 K/mm3 (1.3-6.7); Neutrophils Percent Auto 58.5 % (45.5-73.1); Platelet Count Result 172 k/mm3 (150-375); Red Blood Count 3.78 M/mm3 (4.6-6.20); Red Cell Distribution Width 12.2 % (11.5-14.5); White Blood Count 5.7 K/mm3 (4.5-10.0)
--- OUTSIDE RECORDS SUMMARY | 2024-09-15 17:05 | XMS_ITS | Clinical Summary ---
Author Organization [facility] Address [facility] [place] [address] Care Team Providers Care Handmade Tile Artist Name Role Phone Non-Staff, Provider Primary Care Provider Bradford castañeda Allergies Active Allergy Reactions Criticality Noted Date Comments Lisinopril Swelling Medium 04/11/2023 Medications losartan (COZAAR) 100 MG tablet Take 1 tablet (100 mg total) by mouth daily. Active gabapentin (NEURONTIN) 600 MG tablet Take 1 tablet (600 mg total) by mouth nightly. Active vitamin B-12 (CYANOCOBALAMIN) 500 MCG tablet Take 1 tablet (500 mcg total) by mouth daily. Active Garlic 1000 MG capsule Take 1,000 mg by mouth daily. Active Active Problems No known active problems Social History Tobacco Use Types Packs/Day Years Used Date Smoking Tobacco: Former Cigarettes 2 20 1 978 - 1997 Smokeless Tobacco: Never Tobacco Cessation:Counseling Given: Not Answered Alcohol Use Standard Drinks/Week Comments Yes 46.7 (1 standard drink = 0.6 oz pure alcohol) Sex and Gender Information Value Date Recorded Sex Assigned at Not on file Legal Sex Male 4:18 PM AUTOMOTIVE LUBE TECHNICIAN Gender Identity Not on file Sexual Orientation Not on file Last Filed Vital Signs Vital Sign Reading Time Taken Comments Blood Pressure 150/98 04/21/2023 9:03 AM AUTOMOTIVE LUBE TECHNICIAN Pulse 81 04/21/2023 9:03 AM AUTOMOTIVE LUBE TECHNICIAN Temperature 37.3 C (99.1 F) 04/21/2023 7:37 AM AUTOMOTIVE LUBE TECHNICIAN Respiratory Rate 18 04/21/2023 7:37 AM AUTOMOTIVE LUBE TECHNICIAN Oxygen Saturation 100% 04/21/2023 9:03 AM AUTOMOTIVE LUBE TECHNICIAN Inhaled Oxygen Concentration - - Weight 84.4 kg (186 lb) 04/11/2023 1:20 PM AUTOMOTIVE LUBE TECHNICIAN Height 182.9 cm (6') 04/11/2023 1:20 PM AUTOMOTIVE LUBE TECHNICIAN Body Mass Index 25.23 04/11/2023 1:20 PM AUTOMOTIVE LUBE TECHNICIAN Plan of Treatment Health Maintenance Due Date Last Done Comments Colorectal Cancer Screening Colonoscopy (10 Years) 1956 Hepatitis C 1974 Zoster Vaccines (1 of 2) 2006 Pneumococcal Vaccine: 50+ Ye ars (2 of 2 - PCV) 02/26/2017 02/27/2016 Annual Medicare Wellness Visit 2021 DTaP, Tdap and Td Vaccines ( 2 - Td or Tdap) 07/01/2023 07/01/2013 COVID-19 Vaccine (1 - 2023-2 5 season) 2024 RSV Immunization or 60+ Years (1 - 1-dose 75+ series) 09/13/2031 Meningococcal B Vaccine Aged Out No l onger eligible based on patient's age to complete this topic Meningococcal Vaccine Aged Out No rita sonya eligible based on patient's age to complete this topic RSV Immunizations Under 20 Months Aged Out No longer eligible based on patient's age to complete this topic Medical Devices Implanted Type Area Stock Feeder Device Identifier Shelf Expiration Date Model / Serial / Lot Tecnis 1-Piece Iol Implanted:Qty: 1 on 04/21/2023 by João Baldwin MD at [facility] 10/22/2025 / [id number] / Insurance MEDICAID [facility] Care Teams Handmade Tile Artist Relationship Specialty Start Date End Date Non-Staff, Provider PCP - General UNKNOWN PHYSICIAN SPECIALTY 04/14/23
--- OUTSIDE RECORDS SUMMARY | 2024-09-15 17:05 | XMS_ITS ---
Author Organization [facility] Address [address] [place] [address] Care Team Providers Care Activities Director Name Role Phone Todd Hill MD Unavailable + Nicolas Hoffman MD Unavailable [phone]- [phone] Rick Serrato DO Primary Care Provider [phone]- [phone] Active Problems Problem Noted Date Diagnosed Date Malignant neoplasm of transverse colon 0 Overview (03/30/2020): Added automatically from request for surgery [id number] Osteoarthritis of cervical spine 08/22/2014 Overview (08/31/2016): Cervical spondylosis Anxiety 06/28/2014 Overview (08/31/2016): Anxiety Hypertension 09/24/2013 Overview (08/29/2016): Hypertension Chronic pain 09/24/2013 Overview (08/31/2016): Chronic pain Current Treatment and Therapy Plans No current plan information found. Past Treatment and Therapy Plans No past plan information found. Lifetime Dose Tracking * Chemical Lifetime Dose Automatic Entry Manual Entr y DLP 350 mGycm 350 mGycm 0 mGycm
--- OUTSIDE RECORDS SUMMARY | 2024-09-15 17:05 | XMS_ITS | Referral Summary ---
Author Organization [facility] Address [address] [place] [address] Care Team Providers Care Rubber Compounder Supervisor Name Role Phone Todd Hill MD Unavailable + Nicolas Hoffman MD Unavailable [phone]- [phone] Rick Serrato DO Primary Care Provider [phone]- [phone] Allergies Active Allergy Reactions Criticality Noted Date Comments Itraconazole Rash Medium 04/04/2020 Lisinopril Swelling High 01/26/2017 Medications amLODIPine (NORVASC) 5 mg tablet take 1 tablet by oral route every day 30 6 5 Active Additional Information Patient not taking.Informant: Self, Reported on 06/07/2020 terbinafine (LamISIL) 1 % cream apply by topical route every day to the affected and surrounding areas of skin 60 1 6 Active Additional Information Patient not taking.Informant: Self, Reported on 06/07/2020 losartan-hydroC HLOROthiazide (HYZAAR) 100-12.5 mg per tablet TAKE 1 TABLET BY ORAL ROUTE EVERY DAY 30 4 4 Active Additional Information Patient taking differently: oral Every morning, Indications: hypertension, Informant: Self, Reported on 04/04/2020 famotidine (PEPCID) 20 mg tabletIndicatio ns:gastroesopha geal reflux disease Take 20 mg by mouth every morning 0 Active gabapentin (NEURONTIN) 400 mg capsuleIndicati ons:Neuropathic Pain Take 400 mg by mouth nightly Active acetaminophen 500 mg capsuleIndicati ons:Pain Take 2 capsules (1,000 mg total) by mouth every 6 (six) hours 30 tablet 0 Active ibuprofen (ADVIL,MOTRIN) 600 mg tabletIndicatio ns:Postoperativ e Acute Pain Take 1 tablet (600 mg total) by mouth every 8 (eight) hours 30 tablet 0 Active Additional Information Patient not taking.Reported on 06/07/2020 guaiFENesin (ROBITUSSIN) syrup 100 mg/5 mL Take 10 mL (200 mg total) by mouth 4 (four) times a day as needed for cough 120 mL 0 Active Additional Information Patient not taking.Reported on 06/07/2020 polyethylene glycol (MIRALAX) 17 gram packetIndicatio ns:constipation Take 1 packet (17 g total) by mouth daily 20 packet 1 0 Active Additional Information Patient not taking.Reported on 06/07/2020 oxyCODONE (ROXICODONE) 5 mg immediate release tabletIndicatio ns:Pain Take 1 tablet (5 mg total) by mouth every 4 (four) hours as needed for pain 5 tablet 0 Active Additional Information Patient not taking.Reported on 06/07/2020 Active Problems Problem Noted Date Diagnosed Date Malignant neoplasm of transverse colon 0 Overview (03/30/2020): Added automatically from request for surgery [id number] Osteoarthritis of cervical spine 08/22/2014 Overview (08/31/2016): Cervical spondylosis Anxiety 06/28/2014 Overview (08/31/2016): Anxiety Hypertension 09/24/2013 Overview (08/29/2016): Hypertension Chronic pain 09/24/2013 Overview (08/31/2016): Chronic pain Immunizations Immunization Administration Dates Next Due Influenza, Quadrivalent, Spl it, Preservative Free, Intramuscular 04/12/2020 Influenza, Trivalent, IM (MDV) 03/26/2013 Influenza, Trivalent, Split, Preservative Free, Intradermal 02/23/2014 Social History Tobacco Use Types Packs/Day Years Used Date Smoking Tobacco: Former Cigarettes 2 25 1 [id number] Smokeless Tobacco: Former Alcohol Use Standard Drinks/Week Comments Yes 84 (1 standard drink = 0.6 oz pu re alcohol) last used 2 days ago Sex and Gender Information Value Date Recorded Sex Assigned at Not on file Legal Sex Male 7:28 PM MARKETING TECHNOLOGY COORDINATOR Gender Identity Not on file Sexual Orientation Not on file Last Filed Vital Signs Vital Sign Reading Time Taken Comments Blood Pressure 130/81 06/07/2020 10:35 AM MARKETING TECHNOLOGY COORDINATOR Pulse 91 06/07/2020 10:35 AM MARKETING TECHNOLOGY COORDINATOR Temperature 36.6 C (97.9 F) 06/07/2020 10:35 AM MARKETING TECHNOLOGY COORDINATOR Respiratory Rate 18 06/07/2020 10:35 AM MARKETING TECHNOLOGY COORDINATOR Oxygen Saturation 99% 06/07/2020 10:35 AM MARKETING TECHNOLOGY COORDINATOR Inhaled Oxygen Concentration - - Weight 81 kg (178 lb 9.6 oz) 06/07/2020 10:35 AM MARKETING TECHNOLOGY COORDINATOR Height 185 cm (6' 0.84 ) 06/07/2020 10:35 AM MARKETING TECHNOLOGY COORDINATOR Body Mass Index 23.67 06/07/2020 10:35 AM MARKETING TECHNOLOGY COORDINATOR Plan of Treatment Not on file Medical Devices Implanted Type Area Summer Babysitter Device Identifier Shelf Expiration Date Model / Serial / Lot Plate Plate N/A: Cervical-Tho racic Spine Insurance [facility] MDCR HMO REF IDPA [facility] MDCR HMO REF IDPA Advance Directives For more information, please contact: [phone] * Full Code (Latest Code Status on File) Date Activated Date Inactivated Comments 04/06/2020 2:13 PM 04/13/2020 11:21 PM Care Teams Rubber Compounder Supervisor Relationship Specialty Start Date End Date Rick Serrato DO [address] [place] [address] PCP - General Internal Medicine 05/08/20 Todd Hill MD [address] [place] [address] Referring Physician Gastroenterology 03/27/20 Nicolas Hoffman MD [address] [place] [address] Consulting Physician Colon and Rectal Surgery 04/07/20
--- OUTSIDE RECORDS SUMMARY | 2024-09-15 17:05 | XMS_ITS | Encounter Summary ---
Author Organization [facility] Address [facility] [place] [address] Care Team Providers Care Assistive Technology Trainer Name Role Phone Non-Staff, Provider Primary Care Provider Bradford castañeda Encounter Details Date Type Department Care Team (Late st Contact Info) Description 06/22/[address] 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
--- OUTSIDE RECORDS SUMMARY | 2024-09-15 17:05 | XMS_ITS | Clinical Summary ---
Author Organization [facility] Address [address] [place] [address] Care Team Providers Care Table Games Manager Name Role Phone Todd Hill MD Unavailable + Nicolas Hoffman MD Unavailable +1- [phone] Rick Serrato DO Primary Care Provider +1- [phone] Allergies Active Allergy Reactions Criticality Noted Date [...] (03/30/2020): Added automatically from request for surgery [id number] Osteoarthritis of cervical spine 08/22/2014 Overview (08/31/2016): Cervical spondylosis Anxiety 06/28/2014 Overview (08/31/2016): Anxiety Hypertension 09/24/2013 Overview (08/29/2016): Hypertension Chronic pain 09/24/2013 Overview (08/31/2016): Chronic pain Immunizations Immunization Administration Dates Next Due Influenza, Quadrivalent, Spl it, Preservative Free, Intramuscular 04/12/2020 Influenza, Trivalent, IM (MDV) 03/26/2013 Influenza, Trivalent, Split, Preservative Free, Intradermal 02/23/2014 Surgical History Surgery Date Site/Laterality Comments BACK SURGERY 05/26/2002 - 05/25/2003 bone spur removal, laiminectomy thoracic BACK SURGERY 05/26/2013 - 05/25/2014 spinal decompression BACK SURGERY 05/26/2013 - 05/25/2014 spinal decompression lumbar, x2 rods with screws and cage SHOULDER ARTHROSCOPY 05/26/2019 - 05/25/2020 Right Medical History Medical History Date Comments Hx Other Medical 2011 C spine Fusion Arthritis Arthritis Hypertension Hypertension Hx Other Medical Headache, migra ine Hx Other Medical anterior cervic al fusion Colon cancer (HCC) Family History Medical History Relation Name Comments Hypertension Mother Hypertension; Lung cancer Mother Cancer, lung; Other Mother dialysis; Cancer Other 1 Family history of Cancer; COPD Other 2 Family history of COPD; Kidney disease Other 3 Family histor y of Renal disease; Anesthesia problems Neg Hx Relation Name Status Comments Mother Other 1 Other 2 Other 3 Social History Tobacco Use Types Packs/Day Years Used Date Smoking Tobacco: Former Cigarettes 2 25 1 97 - 1995 Smokeless Tobacco: Former Alcohol Use Standard Drinks/Week Comments Yes 84 (1 standard drink = 0.6 oz pu re alcohol) last used 2 days ago Sex and Gender Information Value Date Recorded Sex Assigned at Not on file Legal Sex Male 7:28 PM JERSEY KNITTER Gender Identity Not on file Sexual Orientation Not on file Obstetrics History Last Filed Vital Signs Vital Sign Reading Time Taken Comments Blood Pressure 130/81 06/07/2020 10:35 AM JERSEY KNITTER Pulse 91 06/07/2020 10:35 AM JERSEY KNITTER Temperature 36.6 C (97.9 F) 06/07/2020 10:35 AM JERSEY KNITTER Respiratory Rate 18 06/07/2020 10:35 AM JERSEY KNITTER Oxygen Saturation 99% 06/07/2020 10:35 AM JERSEY KNITTER Inhaled Oxygen Concentration - - Weight 81 kg (178 lb 9.6 oz) 06/07/2020 10:35 AM JERSEY KNITTER Height 185 cm (6' 0.84 ) 06/07/2020 10:35 AM JERSEY KNITTER Body Mass Index 23.67 06/07/2020 10:35 AM JERSEY KNITTER Plan of Treatment Not on file Medical Devices Implanted Type Area Atm Servicer Device Identifier Shelf Expiration Date Model / Serial / Lot Plate Plate N/A: Cervical-Tho racic Spine Insurance [employer] MDCR HMO [facility] Address: [address] [address] [place] [address] [employer] [facility] Address: [address] [address] [place] [address] [employer] Advance Directives For more information, please contact: [phone] * Full Code (Latest Code Status on File) Date Activated Date Inactivated Comments 04/06/2020 2:13 PM 04/13/2020 11:21 PM Care Teams Table Games Manager Relationship Specialty Start Date End Date Rick Serrato DO [address] [place] [address] PCP - General Internal Medicine 05/08/20 Todd Hill MD [address] [facility] [address] [place] [address] Referring Physician Gastroenterology 03/27/20 Nicolas Hoffman MD [address] [facility] [address] [place] [address] Consulting Physician Colon and Rectal Surgery 04/07/20
--- OUTSIDE RECORDS SUMMARY | 2024-09-15 17:05 | XMS_ITS | Clinical Summary ---
Author Organization [facility] Yue Odom Address [address] [place] [address] Care Team Providers Care Folding Machine Tender Name Role Phone Rick Serrato DO Primary Care Provider Allergies Active Allergy Reactions Criticality Noted Date Comments Itraconazole Rash Medium 04/04/2020 Lisinopril Swelling High 12/19/2010 Medications gabapentin (NEURONTIN) 600 mg tablet Take 300 mg by mouth 2 times daily. Active losartan (COZAAR) 100 mg tablet Take 100 mg by mouth daily. 01/16/2024 Active Active Problems No known active problems Encounters Date Type Department Care Team Description 09/15/2024 2:30 PM CDT Office Visit [facility] Oncology and Hematology - [place] [address] [place] [address] Lilo Oglesby MD Chronic anemia (Primary Dx); History of colon cancer; Benign hypertension from Last 3 Months Family History Medical History Relation Name Comments No Known Problems Child 1 No Known Problems Child 2 Prostate Cancer Father No Known Problems Mother No Known Problems Sister Relation Name Status Comments Child 1 Alive Child 2 Alive Father Mother Sister Alive Social History Tobacco Use Types Packs/Day Years Used Date Smoking Tobacco: Never Smokeless Tobacco: Never Alcohol Use Standard Drinks/Week Comments Not Currently 30 (1 standard drink = 0.6 oz pu re alcohol) Everyday Sex and Gender Information Value Date Recorded Sex Assigned at Not on file Legal Sex Male 10:54 AM CDT Gender Identity Not on file Sexual Orientation Not on file Last Filed Vital Signs Vital Sign Reading Time Taken Comments Blood Pressure 141/89 09/15/2024 2:23 PM CDT Pulse 82 09/15/2024 2:20 PM CDT Temperature 36.6 C (97.8 F) 09/15/2024 2:20 PM CDT Respiratory Rate 16 09/15/2024 2:20 PM CDT Oxygen Saturation 98% 09/15/2024 2:20 PM CDT Inhaled Oxygen Concentration - - Weight 78.6 kg (173 lb 3.2 oz) 09/15/2024 2:20 P M CDT Height 182.9 cm (6') 09/15/2024 2:20 PM CDT Body Mass Index 23.49 09/15/2024 2:20 PM CDT Plan of Treatment Upcoming Encounters Date Type Department Care Team (Late st Contact Info) Description 10/13/2024 4:30 PM CDT Telephone Check Up [facility] Oncology and Hematology [facility] [address] [facility] [address] [place] [address] Magdaleno Webster MD [address] [facility] [employer] [address] [place] [address] Health Maintenance Due Date Last Done Comments COLORECTAL SCREENING 2001 Colorectal Cancer Screening 2001 FIT-DNA Q 3 years 2001 FIT/FOBT Q 1 year 2001 Flex Sig/CT Colonography Q 5 years 2001 DTAP/TDAP/TD VACCINES (2 - T d or Tdap) 07/01/2023 07/01/2013 INFLUENZA VACCINE (#1) 2023 3, 04/12/2020, 02/26/2018, Additional history exists ZOSTER VACCINE (2 of 2) 03/12/2024 01/16/2024 Medicare Ad[place]age ([place]) Preventative Visit/Annual Wellness Visit 05/26/2024 RSV VACCINE (60+ or ) (1 - 1-dose 75+ series) 09/13/2031 PNEUMOCOCCAL VACCINE 50+ YEARS Completed 01/16/2024 , 02/27/2016 Insurance [place] [address] [place], [place] [id number] [facility] [id number] Care Teams Folding Machine Tender Relationship Specialty Start Date End Date Rick Serrato DO [address] [facility] [address] [place] [address] PCP - General Internal Medicine 09/30/23
--- OUTSIDE RECORDS SUMMARY | 2024-09-15 17:05 | XMS_ITS | Encounter Summary ---
Author Organization [facility] [employer] [facility] Address [address] [place] [address] Care Team Providers Care Smooth And Burr Worker Composites Name Role Phone [place] Rick Gerald Primary Care Provider Reason for Visit * Reason Comments Establish Care Anemia Encounter Details Date Type Department Care Team (Late st Contact Info) Description 09/15/2024 2:30 PM CDT Office Visit [facility] Oncology and Hematology - [address] [place] [address] Lilo Oglesby MD [address] [place] [address] Chronic anemia (Primary Dx); History of colon cancer; Benign hypertension Social History Tobacco Use Types Packs/Day Years [...] on file documented as of this encounter Last Filed Vital Signs Vital Sign Reading [...] Mass Index 23.49 09/15/2024 2:20 PM CDT documented in this encounter Progress Notes * Lilo Oglesby MD - 09/15/2024 2:58 PM CDT Hematology-oncology consult Note Requesting Physician Primary Care Physician Rick Serrato, DO Problem list There is no problem list on file for this patient. ? Reason for Visit Catherine Storey is a 69 y.o. male who was referred for consultation for surgical clearance for anemia History of present illness Patient is a 69-year-old male who presented to hematology clinic on 09/15/2024 for further management of chronic anemia present since 2019. I reviewed patient's lab work dating back to 02/12/2020 and CBCs are below. CBC done 02/12/2020 showed white blood count 6.9, hemoglobin 12.6, platelets 208 K. CBC done 04/28/2020 showed white blood cell 6.0, hemoglobin of 12.3, platelet 241 K. CBC done 02/27/2023 shows white blood count 6.1, hemoglobin 12.3, platelet 188 K. CBC done 09/19/2023 shows white blood cell 6.1, hemoglobin 13.1, platelet 201. CBC done 04/27/2024 shows white blood cell 6.0, hemoglobin 13.0, platelet 202K. 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 Patient was then seen by [facility] oncologist Dr. Chan and was monitored with CT scan. No chemotherapy or any other adjuvant treatment was needed. Patient's last visit with Dr. Chan was in February [address] [facility] which according to patient was normal. His last colonoscopy was 6 months ago which was normal per patient. As noted above in CBC his hemoglobin has ranged from 12.3-13.1 in last 5 years. And iron panel on 02/27/2023 showed ferritin of 167 and iron saturations of 36%. Another ferritin was obtained on 08/30/2023 which was noted to be 171. SPEP was performed 01/29/2024 which shows no monoclonal protein. B12 levels were 340 on 09/19/2023. Patient is on vitamin B12 1 mg/day. Patient is a heavy alcohol drinker and consumes 7-8 beers per day every day. Patient had twisted his right knee on 11/27/2023 and since then has been having right knee pain he has seen orthopedic physician and had 2 steroid injections to the joint on 12/15/2023 and 07/27/2024. He does have relief from steroid injections however long-term solution was surgical approach. orthopedic physician is seeking hematologic clearance for anemia. Past Medical History Past Medical History: Diagnosis Date Hypertension Malignant neoplasm (CMS/HCC) Surgical History Past Surgical History: Procedure Laterality Date HX BACK SURGERY 1993 HX NECK SURGERY 1993 Medications Current Outpatient Medications Medication Sig Dispense Refill losartan (COZAAR) 100 mg tablet Take 100 mg by mouth daily. gabapentin (NEURONTIN) 600 mg tablet Take 300 mg by mouth 2 times daily. No current facility-administered medications for this visit. Allergies Allergies Allergen Reactions Lisinopril Swelling Itraconazole Rash Immunizations: There is no immunization history on file for this patient. Family History Family History Problem Relation Name Age of Onset Prostate Cancer Father No Known Problems Mother No Known Problems Sister No Known Problems Child No Known Problems Child Social History Social History Tobacco Use Smoking status: Never Smokeless tobacco: Never Substance Use Topics Alcohol use: Not Currently Alcohol/week: 30.0 standard drinks of alcohol Types: 30 Cans of beer per week Comment: Everyday Review of Systems Constitutional: Patient did not mention fever; no night sweats; no anorexia; no weight loss; no fatique NEENT: Patient did not mention headache; no change in vision; no change in hearing; no sore throat;no dysphagia Respiratory: Patient did not mention shortness of breath; no pleuritic chest pain; no cough; no hemoptysis Cardiac: Patient did not mention cardiac-like chest pain; no palpitations; no orthopnea; no PND; noDOE Breasts: Patient did not mention tenderness; no masses GI: Patient did not mention abdominal pain; no nausea; no vomiting; no diarrhea; no hematochezia; no melena : Patient did not mention dysuria; no frequency; no hesitancy; no hematuria Musculosketetal: Reports right knee pain and effusions skin: Patient did not mention pruritis; no rash; no petechiae; no ecchymoses Endocrine: Patient did not mention polydipsia; no polyuria; no unusual weight gain Neuro: Patient did not mention headache; no change in vision; no sensory changes; no muscle weakness; no confusion; no seizures Psych: Patient did not mention anxiety; no depression; Physical Exam Vitals: As per nursing note Constitutional: Well developed, well nourished, no acute distress, non-toxic appearance Teeth and gum. No signs of infection or swelling. Eyes: PERRL, conjunctiva normal HEENT: Atraumatic, external ears normal, nose normal, oropharynx moist, no pharyngeal exudates. no sinus tenderness Neck- normal range of motion, no tenderness, supple Respiratory: No respiratory distress, normal breath sounds, no rales, no wheezing Cardiovascular: Normal rate, normal rhythm, no murmurs, no gallops, no rubs GI: Soft, nondistended, normal bowel sounds, nontender, no splenomegaly, no hepatomegaly, no mass, no rebound, no guarding Musculoskeletal: No edema, no tenderness, no deformities. Back- no tenderness Integument: Well hydrated, no rash, Lymphatic: No lymphadenopathy noted Neurologic: Alert & oriented x 3, CN 2-12 normal, normal motor function, normal sensory function, no focal deficits noted Psychiatric: Speech and behavior appropriate ? labs CBC done 02/12/2020 showed white blood count 6.9, hemoglobin 12.6, platelets 208 K. CBC done 04/28/2020 showed white blood cell 6.0, hemoglobin of 12.3, platelet 241 K. CBC done 02/27/2023 shows white blood count 6.1, hemoglobin 12.3, platelet 188 K. CBC done 09/19/2023 shows white blood cell 6.1, hemoglobin 13.1, platelet 201. CBC done 04/27/2024 shows white blood cell 6.0, hemoglobin 13.0, platelet 202K. Performance Status?ECOG performance status 1 Assessment / Plan: This is a 69-year-old male with- Mild normocytic anemia- Patient with 5-year history of mild anemia as noted above in the labs. Hemoglobin has varied from 12.3 to 13.1 g/dL since 02/12/2020. I believe the anemia is likely due to his heavy alcohol abuse. I am repeating CBC, CMP, iron panel, B12, folate, testosterone levels, TSH. I am also getting CEA levels as well due to prior history of colon cancer. Patient was following with his [place] oncologist in [place], Dr. Chan. However he now wants to move the care in the local area and Dr. Webster can followhim for colon cancer as well. Per patient his last colonoscopy was 6 months ago and last CT scan ofchest abdomen and pelvis was 8 months ago. Patient reports that he can get his records from the [place] and will bring it to our office. As far as anemia is considered it is mild and clinically insignificant and should not be a hindrance for his right knee surgery. However he needs to follow-up with Dr. Webster via phone clinic in 4 weeks to go over the results of the blood work obtained today. TOBACCO COUNSELING He is not a tobacco/nicotine user. Patient was former smoker and smoked for 20 years 2 packs/day and he quit 15 years ago. Lilo Oglesby MD ,09/15/2024 3:09 PM ? Total time spent 60 minutes, two third of the total time spent counseling patient [id number]. CC:? documented in this encounter Plan of Treatment Upcoming Encounters Date Type Department Care Team (Late st Contact Info) Description 10/13/2024 4:30 PM CDT Telephone Check Up [facility] Oncology and Hematology - Roger [address] [facility] [address] [place] [address] Magdaleno Webster MD [address] [facility] [address] [place] [address] Scheduled Orders Name Type Priority Associated Diagnoses Orde r Schedule CBC WITH DIFFERENTIAL Lab Routine Chronic anemia Expected: 09/15/2024, Expires: 09/15/2025 COMPREHENSIVE METABOLIC PANEL Lab Routine Chronic anemia Expected: 09/15/2024, Expires: 09/15/2025 VITAMIN B12 LEVEL Lab Routine Chronic anemia Expected: 09/15/2024, Expires: 09/15/2025 IRON, TIBC, AND PERCENT SATURATION Lab Routine Chronic anemia Expected: 09/15/2024, Expires: 09/15/2025 TSH Lab Routine Benign hypertension Expected: 09/15/2024, Expires: 09/15/2025 CEA Lab Routine History of colon cancer Expected: 09/15/2024, Expires: 09/15/2025 TESTOSTERONE, TOTAL Lab Routine Chronic anemia Expected: 09/15/2024, Expires: 09/15/2025 FERRITIN Lab Routine Chronic anemia Expected: 09/15/2024, Expires: 09/15/2025 documented as of this encounter Visit Diagnoses Diagnosis Chronic anemia- Primary Anemia, unspecified History of colon cancer Personal history of malignant neoplasm of large intestine Benign hypertension Essential hypertension, benign documented in this encounter Care Teams Smooth And Burr Worker Composites Relationship Specialty Start Date End Date Rick Serrato DO [address] [address] PCP - General Internal Medicine 09/30/23 documented as of this encounter
[2024-09-15 17:13] LABS: Iron 181 ug/dL (49-181)
[2024-09-15 17:23] LABS: Percent Iron Saturation 55 % (20-50)
[2024-09-15 17:40] LABS: Alanine Aminotransferase 20 U/L (6-50); Alkaline Phosphatase 118 U/L (38-126); Anion Gap 12 mmol/L (4-12); Aspartate Amino Transferase 45 U/L (17-59); Bilirubin,Total 0.7 mg/dL (0.2-1.3); Blood Urea Nitrogen 11 mg/dL (9-20); Calcium 9.4 mg/dL (8.4-10.2); Carbon Dioxide 24 mmol/L (22-30); Chloride 96 mmol/L (98-107); Estimated Glomerular Filt Rate > 60; Glucose 80 mg/dL (65-110); Potassium 4.2 mmol/L (3.4-5.0); Sodium 132 mmol/L (137-145)
[2024-09-15 18:10] LABS: Carcinoembryonic Antigen 1.9 ng/mL (0.0-3.0)
== END 2024-09-15 15:02 | disposition home or self-care (01) ==
LOC: ANHLAB 15:04
PROVIDERS: PCP Internal Medicine; Visit Provider Internal Medicine Hematology & Oncology
DX: D64.9 Anemia, unspecified (principal); Z85.038 Personal history of other malignant neoplasm of large intestine
CPT/HCPCS: 36415; 80053; 82378; 82607; 82728; 83540; 83550; 84403; 84443; 85025

== ENCOUNTER 2024-11-11 08:57 | Outpatient (CLI) | payer MEDICARE, MEDICAID, SELFPAY ==
--- NOTE | 2024-11-11 08:58 | ECG_ITS ---
Test Date: 2024-11-11 09:50:15 Measurements Intervals [place] Rate: 70 P: 56 WY: 167 QRS: 54 QRSD: 151 T: 51 QT: 411 QTc: 446 Interpretive Statements SINUS RHYTHM RIGHT BUNDLE BRANCH BLOCK BASELINE ARTIFACT- II, III, AVR, AVL, AVF ABNORMAL ECG No previous ECG available for comparison Electronically Signed On 11-11-2024 09:53:43 CDT by Waldemar Hedrick D.O.
--- OUTSIDE RECORDS SUMMARY | 2024-11-11 09:14 | XMS_ITS | Referral Summary ---
Author Organization [facility] Address [address] [place] [address] Care Team Providers Care Automotive Professional Name Role Phone Todd Hill MD Unavailable + Nicolas Hoffman MD Unavailable +1- [phone] Rick Serrato DO Primary Care Provider +1- [phone] Allergies Active Allergy Reactions Criticality Noted Date [...] (03/30/2020): Added automatically from request for surgery [id number] Osteoarthritis of cervical spine 08/22/2014 Overview (08/31/2016): [...] on file Legal Sex Male 7:28 PM AERONAUTICAL ENGINEERING OFFICER Gender Identity Not on file Sexual Orientation Not on file Last Filed Vital Signs Vital Sign Reading Time Taken Comments Blood Pressure 130/81 06/07/2020 10:35 AM AERONAUTICAL ENGINEERING OFFICER Pulse 91 06/07/2020 10:35 AM AERONAUTICAL ENGINEERING OFFICER Temperature 36.6 C (97.9 F) 06/07/2020 10:35 AM AERONAUTICAL ENGINEERING OFFICER Respiratory Rate 18 06/07/2020 10:35 AM AERONAUTICAL ENGINEERING OFFICER Oxygen Saturation 99% 06/07/2020 10:35 AM AERONAUTICAL ENGINEERING OFFICER Inhaled Oxygen Concentration - - Weight 81 kg (178 lb 9.6 oz) 06/07/2020 10:35 AM AERONAUTICAL ENGINEERING OFFICER Height 185 cm (6' 0.84) 06/07/2020 10:35 AM AERONAUTICAL ENGINEERING OFFICER Body Mass Index 23.67 06/07/2020 10:35 AM AERONAUTICAL ENGINEERING OFFICER Plan of Treatment Not on file Medical Devices Implanted Type Area Gold Burnisher Device Identifier Shelf Expiration Date Model / Serial / Lot Plate Plate N/A: Cervical-Tho racic Spine Insurance [facility] MDCR HMO REF IDPA [facility] MDCR HMO REF IDPA Advance Directives For more information, please contact: [phone] * Full Code (Latest Code Status on File) Date Activated Date Inactivated Comments 04/06/2020 2:13 PM 04/13/2020 11:21 PM Care Teams Automotive Professional Relationship Specialty Start Date End Date Rick Serrato DO [address] [place] [address] PCP - General Internal Medicine 05/08/20 Todd Hill MD [address] [place] [address] Referring Physician Gastroenterology 03/27/20 Nicolas Hoffman MD [address] [place] [address] Consulting Physician Colon and Rectal Surgery 04/07/20
--- OUTSIDE RECORDS SUMMARY | 2024-11-11 09:14 | XMS_ITS | Clinical Summary ---
Author Organization [facility] Yue gonzales Jose J Address [address] [place] [address] Care Team Providers Care Preventive Maintenance Coordinator Name Role Phone Rick Serrato Primary Care Provider Allergies Active Allergy Reactions Criticality Noted Date Comments Itraconazole Rash Medium 04/04/2020 Lisinopril Swelling High 12/19/2010 Medications gabapentin (NEURONTIN) 600 mg tablet Take 300 mg by mouth 2 times daily. Active losartan (COZAAR) 100 mg tablet Take 100 mg by mouth daily. 01/16/2024 Active Active Problems No known active problems Encounters Date Type Department Care Team Description 11/03/[address] [facility] Oncology and Hematology [facility] [address] [place] [address] Magdaleno Webster MD 11/02/[address] [facility] Oncology and Hematology [facility] [address] [place] [address] Magdaleno Webster MD Surgical Clearance 10/13/2024 4:30 PM CDT Telephone Check Up [facility] Oncology and Hematology [facility] [address] [place] [address] Magdaleno Webster MD Chronic anemia (Primary Dx); History of colon cancer 09/21/2024 External Device Data STL ABSTRACTION Provider, Abstract 09/21/2024 External Device Data STL ABSTRACTION Provider, Abstract 09/21/2024 External Device Data STL ABSTRACTION Provider, Abstract 09/20/[address] [facility] Oncology and Hematology - [place] [address] [place] [address] Magdaleno Webster MD 09/16/[address] [facility] Oncology and Hematology - [address] [place] [address] Lilo Oglesby MD 09/15/2024 2:30 PM CDT Office Visit [facility] Oncology and Hematology - [address] [place] [address] Lilo Oglesby MD Chronic anemia (Primary Dx); [...] Care Team (Late st Contact Info) Description 02/21/2025 2:45 PM CDT Office Visit [facility] Oncology and Hematology - [address] [place] [address] Magdaleno Webster MD [address] [facility] [address] [place] [address] Health Maintenance Due Date Last Done Comments DTAP/TDAP/TD VACCINES (2 - T d or Tdap) 07/01/2023 07/01/2013 INFLUENZA VACCINE (#1) 2023 3, 04/12/2020, 02/26/2018, Additional history exists ZOSTER VACCINE (2 of 2) 03/12/2024 01/16/2024 RSV VACCINE (60+ or ) (1 - 1-dose 75+ series) 09/13/2031 PNEUMOCOCCAL VACCINE 50+ YEARS Completed 01/16/2024 , 02/27/2016 Procedures Procedure Name Priority Date/Time Associated Diagnosis Comments TESTOSTERONE FREE Routine 09/15/2024 2:0 8 PM CDT COMPREHENSIVE METABOLIC PANEL Routine 09/15/2024 1:14 PM CDT CBC MIXED CELL DIFFERENTIAL Routine 09/15/2024 11:31 AM CDT from Last 3 Months Results * TESTOSTERONE FREE (09/15/2024 2:08 PM CDT) Blood Magdaleno Webster MD CHEMISTRY ORDERABLES Final Resu lt * COMPREHENSIVE METABOLIC PANEL (09/15/2024 1:14 PM CDT) Blood Magdaleno Webster MD CHEMISTRY ORDERABLES Final Resu lt * CBC MIXED CELL DIFFERENTIAL (09/15/2024 11:31 AM CDT) Blood Lilo Oglesby MD HEMATOLOGY ORDERABLES Mai l Result from Last [address] [place] [address] [place]ID [place] [facility] [id number] Care Teams Preventive Maintenance Coordinator Relationship Specialty Start Date End Date Rick Serrato DO [address] [address] PCP - General Internal Medicine 09/30/23
--- OUTSIDE RECORDS SUMMARY | 2024-11-11 09:14 | XMS_ITS ---
Author Organization [facility] Address [address] [place] [address] Care Team Providers Care Grain Scooper Name Role Phone Todd Hill MD Unavailable + Nicolas Hoffman MD Unavailable +1- [phone] Rick Serrato DO Primary Care Provider +1- [phone] Active Problems Problem Noted Date Diagnosed Date Malignant neoplasm of transverse colon 0 Overview (03/30/2020): Added automatically from request for surgery [id number] Osteoarthritis of cervical spine 08/22/2014 Overview (08/31/2016): [...]
--- OUTSIDE RECORDS SUMMARY | 2024-11-11 09:14 | XMS_ITS | Clinical Summary ---
Author Organization [facility] Address [address] [place] [address] Care Team Providers Care Strategic Partnership Representative Name Role Phone Todd Hill MD Unavailable + Nicolas Hoffman MD Unavailable [phone]- [phone] Rick Serrato DO Primary Care Provider +1- [phone] Allergies Active Allergy Reactions Criticality Noted Date [...] (03/30/2020): Added automatically from request for surgery [id number] Osteoarthritis of cervical spine 08/22/2014 Overview (08/31/2016): [...] on file Legal Sex Male 7:28 PM [employer]OURCE [employer]SERVATION [employer]IST Gender Identity Not on file Sexual Orientation Not on file Obstetrics History Last Filed Vital Signs Vital Sign Reading Time Taken Comments Blood Pressure 130/81 06/07/2020 10:35 AM RESOURCE CONSERVATION SPECIALIST Pulse 91 06/07/2020 10:35 AM RESOURCE CONSERVATION SPECIALIST Temperature 36.6 C (97.9 F) 06/07/2020 10:35 AM RESOURCE CONSERVATION SPECIALIST Respiratory Rate 18 06/07/2020 10:35 AM RESOURCE CONSERVATION SPECIALIST Oxygen Saturation 99% 06/07/2020 10:35 AM RESOURCE CONSERVATION SPECIALIST Inhaled Oxygen Concentration - - Weight 81 kg (178 lb 9.6 oz) 06/07/2020 10:35 AM RESOURCE CONSERVATION SPECIALIST Height 185 cm (6' 0.84) 06/07/2020 10:35 AM RESOURCE CONSERVATION SPECIALIST Body Mass Index 23.67 06/07/2020 10:35 AM RESOURCE CONSERVATION SPECIALIST Plan of Treatment Not on file Medical Devices Implanted Type Area Brick Offbearer Device Identifier Shelf Expiration Date Model / Serial / Lot Plate Plate N/A: Cervical-Tho racic Spine Insurance [employer] MDCR HMO REF [facility] Address: [address] [address] [place] [address] [employer] [facility] Address: [address] [address] [place] [address] [employer] Advance Directives For more information, please contact: [phone] * Full Code (Latest Code Status on File) Date Activated Date Inactivated Comments 04/06/2020 2:13 PM 04/13/2020 11:21 PM Care Teams Strategic Partnership Representative Relationship Specialty Start Date End Date Rick Serrato DO [address] [place] [address] PCP - General Internal Medicine 05/08/20 Todd Hill MD [address] [place] [address] Referring Physician Gastroenterology 03/27/20 Nicolas Hoffman MD [address] [place] [address] Consulting Physician Colon and Rectal Surgery 04/07/20
[2024-11-11 10:15] LABS: Add Urine Microscopic? NO; Appearance Urine Clear (Clear); Bilirubin Urine Negative (Negative); Blood Urine Negative (Negative); Color Urine Yellow (Yellow); Glucose Urine UA Negative (Negative); Ketones Urine Negative (Negative); Leukocyte Esterase Ur Negative LEU/UL (Negative); Nitrate Urine Negative (Negative); Protein Urine Negative (Negative); Specific Grav Ur 1.008 (1.001-1.035); Urobilinogen Urine 0.2 mg/dL (<2.0)
== END 2024-11-11 08:58 | disposition home or self-care (01) ==
PROVIDERS: PCP Internal Medicine; Visit Provider Nurse Practitioner Family
DX: E78.5 Hyperlipidemia, unspecified (principal); D64.9 Anemia, unspecified; R74.8 Abnormal levels of other serum enzymes; I10 Essential (primary) hypertension; R53.83 Other fatigue
CPT/HCPCS: 81003; 93005

== ENCOUNTER 2024-12-13 13:01 | Outpatient (CLI) | payer MEDICARE, MEDICAID, SELFPAY ==
--- OUTSIDE RECORDS SUMMARY | 2024-12-13 13:16 | XMS_ITS | Encounter Summary ---
Author Name [facility] [place] [facility] [place] [facility] [place] Address [address] [place] [id number] Care Team Providers Care Can Cutter Name Role Phone LOR VILLATORO Primary Care Provider Unavailabl e Insurance Providers: All historical and current Section Date Range: From patient's date of to the date document was created. This section includes the names of all active insurance providers for the patient. Insurance Provider Type of Coverage Plan Name Start of Policy Coverage End of Policy Coverage Group Number Member ID Insurance Provider's Telephone Number Policy Faulkner's Name Patient's Relationship to Policy Faulkner [facility] (WNR) MEDICARE ADVANTAGE [facility] (WNR) May 26, 2023 [id number] DAVINA STOREY PATIENT MEDICARE (WNR) MEDICARE (M) PART B Jul 24, 2012 PART B [id number] DAVINA STOREY PATIENT MEDICARE (WNR) MEDICARE (M) PART A Aug 25, 2011 PART A [id number] DAVINA STOREY PATIENT Selected Encounter This section includes the information on record at [place] for the Encounter. Date/Time Encounter Type Encounter Description Reason Provider Source Feb 12, 2024 09:00 AM OFFICE O/P EST HI 40 MIN ONCOLOGY/TUMOR ICD-10-CM D01.0 Carcinoma in situ of colon LUCAS CHAN Abdifatah Encounter Template Text not used by [place] Assessments - Encounter Diagnoses This section includes the primary and secondary diagnoses documented for the Encounter. Date/Time Primary/Secondary Diagnosis Diagnosis Name Provider Source Feb 16, 2024 10:29 AM PRIMARY Carcinoma in situ of colon LUCAS CHAN [facility] Feb 16, 2024 10:29 AM SECONDARY Hemochromatosis, unspecified LUCAS CHAN [facility] Plan of Treatment: Future Appointments (+ 6 months) and Future Tests (+/- 45 days) The Plan of Treatment section includes future care activities for the patient from all [place] treatmentfacilities. This section includes future appointments and future orders which are active, pending or scheduled. Active, Pending, and Scheduled Orders This section includes a listing of several types of active, pending, and scheduled orders, including clinic medications orders, diagnostic test orders, procedure orders and consult orders; where the start date of the order is 45 days before the date of the Encounter or 45 days after the date of theEncounter. The data comes from all [place] treatment facilities. Test Date/Time Test Type Test Details Facility Name Mar 11, 2024 12:00 AM Laboratory - Chemistry Order PHOSPHOROUS GREEN LI/HEP BLD/PLAS PLASMA [facility] Mar 11, 2024 12:00 AM Laboratory - Chemistry Order CBC BLOOD STAT [facility] Mar 11, 2024 12:00 AM Laboratory - Chemistry Order COMPREHENSIVE METABOLIC PANEL GREEN LI/HEP BLD/PLAS PLASMA STAT [facility] Mar 11, 2024 12:00 AM Laboratory - Chemistry Order FERRITIN GOLD/RED SST SERUM [facility] Mar 11, 2024 12:00 AM Laboratory - Chemistry Order IRON/TIBC PROFILE GOLD/RED SST SERUM [facility] Mar 11, 2024 12:00 AM Laboratory - Chemistry Order MAGNESIUM GREEN LI/HEP BLD/PLAS PLASMA [facility] Mar 19, 2024 12:00 AM Laboratory - Chemistry Order IRON/TIBC PROFILE GOLD/RED SST SERUM [facility] Mar 19, 2024 12:00 AM Laboratory - Chemistry Order FERRITIN GOLD/RED SST SERUM SP [facility] Mar 19, 2024 12:00 AM Laboratory - Chemistry Order PHOSPHOROUS GREEN LI/HEP BLD/PLAS PLASMA SP [facility] Mar 19, 2024 12:00 AM Laboratory - Chemistry Order MAGNESIUM GREEN LI/HEP BLD/PLAS PLASMA SP [facility] Mar 19, 2024 12:00 AM Laboratory - Chemistry Order CBC BLOOD STAT SP [facility] Mar 19, 2024 12:00 AM Laboratory - Chemistry Order COMPREHENSIVE METABOLIC PANEL GREEN LI/HEP BLD/PLAS PLASMA STAT SP [facility] Lab Results: +/- 30 days of the encounter This section includes the Chemistry and Hematology Lab Results [facility] record with [facility] for the [facility]. Radiology Reports and Pathology Reports are provided separately, in subsequent sections. Lab Results This section contains the Chemistry/Hematology Results that were resulted 30 days before or 30 daysafter the date of the Encounter. Date/Time Source Result Type Result - Unit Interpretation Reference Range Specimen Type Comment Feb 12, 2024 09:00 AM [facility] FERRITIN SERUM Specimen Type: SERUM Comment: The listed sex of this patient may not be a typical indication for this test. Therefore, reference ranges or interpretive criteria listed may not be valid. Clinical correlation suggested. Ordering Provider: LUCAS CHAN Report Released Date/Time: Jan 15, 2024 03:44 PM Reporting Lab: [facility] [address] [address] Performing Lab: [facility] [address] [address] FERRITIN 288.38 ng/mL H 22-275 Feb 12, 2024 09:[address] [facility] HGA1C BLOOD Specimen Type: BLOOD No comment entered. Ordering Provider: LOR VILLATORO Report Released Date/Time: Jan 16, 2024 08:36 AM Reporting Lab: [facility] [address] [address] Performing Lab: [facility] [address] [address] HGA1C 5.3 4.0-6.0 Feb 12, 2024 09:00 AM [facility] IRON/TIBC PROFILE SERUM Specimen Type: SERUM No comment entered. Ordering Provider: LUCAS CHAN Report Released Date/Time: Jan 15, 2024 03:44 PM Reporting Lab: [address] [address] Performing Lab: [address] [address] TIBC 308 ug/dL 250-450 TRANSFERRIN 246 mg/dL 163-344 IRON SATURATION 37 20-50 IRON 115 ug/dL 65-175 Feb 12, 2024 09:00 AM [facility] LIPID PANEL (STL) PLASMA Specimen Type: PLASM A Comment: No hemolysis noted. Ordering Provider: LOR VILLATORO Report Released Date/Time: Jan 16, 2024 08:36 AM Reporting Lab: [address] [address] Performing Lab: [address] [address] CHOLESTEROL 205 mg/dL H 0-200 TRIGLYCERIDE 73 mg/dL 0-150 CALCULATED LDL 116 mg/dL HDL(New) 74 mg/dL >40 Feb 12, 2024 09:00 AM [facility] PROST. SPECIFIC AG.(PB-STL) SERUM Specimen Ty pe: SERUM Comment: The listed sex of this patient may not be a typical indication for this test. Therefore, reference ranges or interpretive criteria listed may not be valid. Clinical correlation suggested. Ordering Provider: LOR VILLATORO Report Released Date/Time: Jan 16, 2024 08:36 AM Reporting Lab: [address] [address] Performing Lab: [address] [address] PROST. SPECIFIC AG.(PB-STL) 0.976 ng/mL 0-4 Feb 12, 2024 09:00 AM [facility] COMPREHENSIVE METABOLIC PANEL PLASMA Specimen Type: PLASMA Comment: No hemolysis noted. Ordering Provider: LUCAS CHAN Report Released Date/Time: Jan 15, 2024 03:44 PM Reporting Lab: [address] [address] Performing Lab: [address] [address] CREATININE 1.12 mg/dL 0.7-1.3 UREA NITROGEN 12.7 mg/dL 9.0-25.0 GLUCOSE 112 mg/dL H 72-99 SODIUM 132 meq/L L 136-145 POTASSIUM 4.9 meq/L 3.5-5 CHLORIDE 99 meq/L 98-107 CARBON DIOXIDE 26 meq/L 22-31 CALCIUM 9.8 mg/dL 8.4-10.4 PROTEIN 7.8 g/dL 6-8.6 ALBUMIN 4.6 g/dL 3.4-5 TOTAL BILIRUBIN 0.7 mg/dL 0.2-1.2 ALKALINE PHOSPHATASE 117 U/L 40-150 AST/SGOT 25 U/L 5-34 ALT/SGPT 14 U/L 8-40 EGFR (CKD-EPI 2020) 72.0 >60 Feb 12, 2024 09:[address] [facility] CBC BLOOD Specimen Type: BLOOD No comment entered. Ordering Provider: LUCAS CHAN Report Released Date/Time: Jan 15, 2024 03:44 PM Reporting Lab: [address] [address] Performing Lab: [address] [address] WBC 7.2 10*3/uL 3.6-11.2 RBC 3.79 10*6/uL L 4.10-5.70 HGB 12.2 g/dL L 13.1-16.8 HCT 36.7 L 38.2-48.4 MCV 96.8 fL 80.0-100.0 MCH 32.2 pg 27.0-34.0 MCHC 33.2 g/dL 33.0-36.0 PLT 208 10*3/uL 150-400 MPV 9.6 fL 7.5-11.2 RDW 12.9 11.8-15.1 LYMPHOCYTES, AUTO % 13 MONOCYTES, AUTO % 11 NEUTROPHILS, AUTO % 73 EOSINOPHILS, AUTO % 3 BASOPHILS, AUTO % 1 LYMPHOCYTES, ABSOLUTE 0.96 10*3/uL 0.77- 4.50 MONOCYTES, ABSOLUTE 0.75 10*3/uL 0.19-0. 80 NEUTROPHILS, ABSOLUTE 5.19 10*3/uL 2.10- 8.00 EOSINOPHILS, ABSOLUTE 0.18 10*3/uL 0.00- 0.60 BASOPHILS, ABSOLUTE 0.05 10*3/uL 0.00-0. 20 Feb 12, 2024 07:57 AM [facility] I-STAT, CREAT (STL-MA) BLOOD Specimen Type: B LOOD Comment: Test Performed by: [id number] Meter #: [id number] Ordering Provider: LOR VILLATORO Report Released Date/Time: Feb 12, 2024 08:10 AM Reporting Lab: [place] [id number] [address] Performing Lab: [place] [address] [address] I-STAT, CREAT (STL-MA) 1.2 mg/dL 0.7-1.3 Vital Signs: All taken on the encounter date This section contains inpatient and outpatient Vital Signs collected on the date of the Encounter. Date/Time Temperature Pulse Blood Pressure Respiratory Rate SP02 Pain Height Weight Body Mass Index Source Feb 12, 2024 09:00 AM 98.1 97 147/89 18 99 170 22 [facility] Social History: Smoking Status (Most current) and Tobacco Use (All prior to encounter date) This section includes the most current, and the historical, smoking and tobacco- related health factors from the [place] facility where the Encounter took place. Current Smoking Status This section includes the most current smoking, or tobacco-related health factor, from the [place] facility where the Encounter took place. Date/Time Current Smoking Status Comment Iris ity Jan 16, 2024 08:30 AM VA-TOBACCO FORMER USER [facility] Tobacco Use History This section includes a history of the smoking, or tobacco-related health factors, that were collected on or before the date of the Encounter. The data comes from the [place] facility where the Encounter took place. Date/Time Smoking Status/Tobacco Use Comment F acility Jan 16, 2024 08:30 AM VA-TOBACCO QUIT 15 YRS OR MORE [facility] Apr 17, 2022 10:00 AM VA-TOBACCO FORMER USER [facility] Apr 17, 2022 10:00 AM VA-TOBACCO QUIT 15 YRS OR MORE [facility] Aug 31, 2020 03:00 PM VA-TOBACCO FORMER USER [facility] Aug 31, 2020 03:00 PM VA-TOBACCO QUIT 15 YRS OR MORE [facility] Aug 27, 2019 10:12 AM VA-TOBACCO FORMER USER [facility] Aug 27, 2019 10:12 AM VA-TOBACCO QUIT 15 YRS OR MORE [facility] May 11, 2018 08:48 AM VA-TOBACCO NEVER USED [facility] Apr 02, 2017 03:50 PM QUIT TOBACCO >7 YEARS AGO [facility] Jan 22, 2017 01:30 PM QUIT TOBACCO >7 YEARS AGO [facility] Jan 22, 2017 01:30 PM TOBACCO MEDS OFFER ED BUT DECLINED [facility] October 02, 2016 12:38 PM LIFETIME NON-USER OF TOBACCO [facility] Oct 25, 2015 03:19 PM QUIT TOBACCO >7 YEARS AGO [facility] Aug 03, 2014 03:07 PM QUIT TOBACCO >7 YEARS AGO [facility] Dec 24, 2012 02:49 PM QUIT TOBACCO >7 YEARS AGO [facility] Mar 12, 2012 12:20 PM QUIT TOBACCO >7 YEARS AGO [facility] Apr 26, 2009 02:52 PM QUIT TOBACCO >7 YEARS AGO [facility] Jun 22, 2008 01:51 PM CURRENT TOBACCO USER [facility] Jun 22, 2008 01:51 PM QUIT TOBACCO >12 M O & <7 YRS AGO [facility] Jun 22, 2008 01:[address] OP SMOKING CLINIC [facility] Jul 22, 2007 01:30 PM QUIT TOBACCO >12 M O & <7 YRS AGO [facility] Feb 19, 2006 03:16 PM CURRENT NON-TOBACC O USER-HX OF USE [facility] Feb 19, 2006 03:16 PM TOBACCO TERMINATION STAGE [facility] May 01, 2005 02:31 PM CURRENT NON-TOBACC O USER-HX OF USE [facility] May 01, 2005 02:31 PM TOBACCO TERMINATION STAGE [facility] October 17, 2004 02:02 PM CURRENT NON-TOBACC O USER-HX OF USE [facility] October 17, 2004 02:02 PM TOBACCO TERMINATION STAGE [facility] Sep 21, 2003 02:21 PM CURRENT NON-TOBACC O USER-HX OF USE [facility] Sep 21, 2003 02:21 PM TOBACCO ACTION STAGE [facility] Aug 10, 2003 02:23 PM CURRENT TOBACCO USER [facility] Aug 10, 2003 02:23 PM SMOKER 10-20 [facility] Aug 10, 2003 02:23 PM TOBACCO PREP STAGE [facility] Nov 10, 2002 11:38 AM CURRENT TOBACCO USER [facility] October 13, 2002 02:25 PM CURRENT TOBACCO USER [facility] October 13, 2002 02:[address] [facility] Jun 09, 2002 03:19 PM CURRENT TOBACCO USER [facility] Jun 09, 2002 03:[address] [facility] Dec 10, 2000 03:03 PM CURRENT TOBACCO USER [facility] Dec 10, 2000 03:[address] [facility] Sep 03, 2000 01:22 PM CURRENT TOBACCO USER [facility] Radiology Reports: +/- 30 days of the encounter Radiology Reports For cases when an order for radiology services may have been completed prior to the date of the Encounter, the report list includes the Radiology Reports that were completed up to 30 days before dateof the Encounter. For cases when an order for radiology services may have been completed after the date of the Encounter, the report list also includes the Radiology Reports that were completed up to30 days after date of the Encounter. The data comes from all [place] treatment facilities. Date/Time Radiology Report Provider Source Feb 12, 2024 07:[address] CHEST W/CONTRAS T & 3D: DANIEL STOREY [id number] -1955 M Exm Date: FEB 12, 2024@07:44 Req Phys: LUCAS CHAN Loc: [facility]I-ONCOLOGY SHERICE (Req'g Loc) Img Loc: RAVI-CT IMAGING RAVI Service: Unknown [facility], [address] [place] [address] (Case [id number] COMPLETE) CT THORAX, DIAGNOSTIC, W/CONTRAS(CT Detailed) CPT:15549 Contrast Media : Non-ionic Iodinated Reason for Study: Restaging Stage II colon cancer Clinical History: Responsible Attending: Lucas Chan Attending Contact Number: [phone] Resident Contact Number: Restaging Stage II COLON CANCER Allergies listed in CPRS chart: LISINOPRIL Creatinine: CREATININE 1.07 mg/dL 05/01/2023 09:35 /eGFR: STL EGFR (within one year). CREATININE 1.07 mg/dL (05/01/23 09:35) Wt: 165.8 lb [75.21 kg] (01/01/2024 11:34) History of: Renal failure, chronic or acute renal disease: NO Report Status: Verified Date Reported: FEB 12, 2024 Date Verified: FEB 12, 2024 Customer Servicer E-Sig:/ES/Samson Avila MD Report: CASE #: [id number], [id number], [id number] DATE:02/12/2024 9:01 AM CLINICAL HISTORY:Restaging Stage II colon cancer COMPARISON: None currently available. PROCEDURES: CT THORAX, DIAGNOSTIC, W/CONTRAST, CT ABDOMEN AND PELVIS W/CONTRAST, CT 3D RENDERING W INDEPENDENT WORKSTATION POSTPROCESSING FINDINGS: C-spine stabilization hardware partially imaged. No new or enlarging pulmonary nodules identified. No focal pneumonia or pleural or pericardial effusion. Heart size within normal limits. Liver, gallbladder, pancreas, spleen and adrenals unremarkable. Visualized retroperitoneal and mesenteric lymph nodes within normal limits of size and number. Periumbilical hernia containing only fat, stable. Small left inguinal hernia containing only fat, unchanged. Postsurgical changes in the ascending colon with uncomplicated ileocolonic anastomosis. Appendix is absent. Colonic diverticulosis in the descending and sigmoid segments without acute diverticulitis. Prostate gland within normal limits of size. No free or loculated fluid in the abdomen or. No obstructive uropathy. No acute perinephric or periureteral or bladder inflammation. No visualized retroperitoneal or mesenteric lymphadenopathy. Degenerative changes spine most pronounced at L5-S1. No fractures. Impression: Stable findings as discussed above. Primary Interpreting Staff: Samson Avila MD, Radiologist (Customer Servicer) /SAMSON BRIDGES [facility] Feb 12, 2024 07:[address] ABD PEL W/CONT & 3D: DANIEL STOREY [id number] -1955 M Exm Date: FEB 12, 2024@07:43 Req Phys: LUCAS CHAN Loc: [facility]-ONCOLOGY SHERICE (Req'g Loc) Img Loc: RAVI-CT IMAGING Service: [facility], [address] [address] (Case [id number] COMPLETE) CT ABDOMEN AND PELVIS W/CONTRAST (CT Detailed) CPT:25107 Contrast Media : Non-ionic Iodinated Reason for Study: Restaging Stage II Colon Cancer (Case [id number] COMPLETE) CT 3D RENDERING W INDEPENDENT WOR(CT Detailed) CPT:14329 Clinical History: Responsible Attending: Lucas Chan Attending Contact Number: [phone] Resident Contact Number: Restaging Stage II Colorectal Cancer Allergies listed in CPRS chart: LISINOPRIL Creatinine:CREATININE 1.07 mg/dL 05/01/2023 09:35 /eGFR: STL EGFR (within one year). CREATININE 1.07 mg/dL (05/01/23 09:35) Wt: 165.8 lb [75.21 kg] (01/01/2024 11:34) History of: Renal failure, chronic or acute renal disease: NO Report Status: Verified Date Reported: FEB 12, 2024 Date Verified: FEB 12, 2024 Customer Servicer E-Sig:/ES/Samson Avila MD Report: CASE #: [id number], [id number], [id number] DATE:02/12/2024 9:01 AM CLINICAL HISTORY:Restaging Stage II colon cancer COMPARISON: None currently available. PROCEDURES: CT THORAX, DIAGNOSTIC, W/CONTRAST, CT ABDOMEN AND PELVIS W/CONTRAST, CT 3D RENDERING W INDEPENDENT WORKSTATION POSTPROCESSING FINDINGS: C-spine stabilization hardware partially imaged. No new or enlarging pulmonary nodules identified. No focal pneumonia or pleural or pericardial effusion. Heart size within normal limits. Liver, gallbladder, pancreas, spleen and adrenals unremarkable. Visualized retroperitoneal and mesenteric lymph nodes within normal limits of size and number. Periumbilical hernia containing only fat, stable. Small left inguinal hernia containing only fat, unchanged. Postsurgical changes in the ascending colon with uncomplicated ileocolonic anastomosis. Appendix is absent. Colonic diverticulosis in the descending and sigmoid segments without acute diverticulitis. Prostate gland within normal limits of size. No free or loculated fluid in the abdomen or. No obstructive uropathy. No acute perinephric or periureteral or bladder inflammation. No visualized retroperitoneal or mesenteric lymphadenopathy. Degenerative changes spine most pronounced at L5-S1. No fractures. Impression: Stable findings as discussed above. Primary Interpreting Staff: Samson Avila MD, Radiologist (Customer Servicer) /SAMSON BRIDGES [facility] Encounter Notes: All associated encounter notes This section contains the clinical notes associated to the Encounter. Date/Time Encounter Note(s) Provider Source Feb 12, 2024 09:16 AM HEMATOLOGY AND ONC OLOGY OUTPATIENT NOTE: LOCAL TITLE: HEMATOLOGY ONCOLOGY OUTPATIENT FOLLOW UP ST STANDARD TITLE: HEMATOLOGY AND ONCOLOGY OUTPATIENT NOTE DATE OF NOTE: FEB 12, 2024@09:16 ENTRY DATE: FEB 12, 2024@09:16:55 AUTHOR: PENG PARRY EXP COSIGNER: LUCAS CHAN URGENCY: STATUS: COMPLETED HEMATOLOGY ONCOLOGY OUTPATIENT FOLLOW UP ST Has ADDENDA DIAGNOSIS: Colon Cancer, Stage II STAGE: II, PDL1 < 1%, KRAS mutant TREATMENT HISTORY: *Developed blood in stool in 02/2020, negative cologuard *Colonoscopy performed with ascending colon adenocarcinoma *Referred to Surgery, who performed lap R hemicolectomy on 04/06/2020 with mod diff AC, 5.5cm, invading through MP into pericolonic fat. No PNI or LVI. Margins negative and 0/24 LNs +. Grade D2, T3N0M0. *MED ONC saw patient at [facility], recommended no adjuvant therapy. Liver biopsy was completed showing from 01/28/23: DIAGNOSIS: LIVER, RANDOM BIOPSY: - STEATOHEPATITIS - NAFLD ACTIVITY SCORE = 5/8 - AT LEAST 3+ IRON STAIN - STAGE 3 BRIDGING FIBROSIS WITH PARENCHYMAL NODULARITY - SEE DESCRIPTION Evidence shows 3+ IRON staining, we reviewed phlebotomy. 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 INTERVAL HISTORY: Mr. Storey is doing well today. He had his CT CAP for surveillance and showing no evidence of disease. He had phlebotomy 4 weeks ago approximately and due again today pending labs. PHYSICAL EXAM: BP: 147/89 (02/12/2024 09:00) P: 97 (02/12/2024 09:00) O2: Measurement DT POx (L/MIN)(%) 02/12/2024 09:00 99 01/16/2024 08:20 99 01/01/2024 11:34 96 05/01/2023 09:40 99 RR: 18 (02/12/2024 09:00) Weight: Measurement DT WEIGHT LB(KG)[BMI] 02/12/2024 09:00 170(77.11)[22] 01/16/2024 08:20 168.5(76.43)[22] 01/01/2024 11:34 165.8(75.21)[23] 05/01/2023 09:40 180(81.65)[24] Gen: NAD HEENT: NC/AT, MMM, No OP lesions PULM: CTABL CARD: RRR, no m/r/g ABD: NT/ND, NABS No HSM EXT: No EDEMA NEURO: A&Ox3, SAMUEL, No focal deficits SKIN: No RASH PMH: 1) HYPERTENSION NOS 2) Alcohol dependence (SNOMED CT 65678012) 3) Back pain (SNOMED CT 575024780) 4) BACKACHE NOS 5) Tobacco Use Disorder * (ICD-9-CM 305.1) 6) Carpal Tunnel Syndrome * (ICD-9-CM 354.0) 7) Unspecified disorder of male genital organs (ICD-9-CM 608.9) 8) Erectile dysfunction (SNOMED CT 283103469) 9) Peripheral neuropathy (SNOMED CT 372843237) 10) Hypertension (SNOMED CT 83451752) 11) Pain, Neck 12) HLD - Hyperlipidemia (SNOMED CT 40358381) 13) 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 1 DANIEL STOREY [id number] : 1955 AOPM - Active OutPat Meds 1) SILDENAFIL CITRATE 100MG TAB TAKE ONE TABLET BY MOUTH ONE HOUR PRIOR TO SEXUAL ACTIVITY FOR 2) GABAPENTIN 400MG CAP TAKE ONE CAPSULE BY MOUTH AT BEDTIME FOR PAIN 3) LOPERAMIDE HCL 2MG CAP TAKE ONE CAPSULE BY MOUTH FOUR TIMES A DAY NEEDED FOR DIARRHEA 4) GARLIC OIL CAP,ORAL BY MOUTH 5) LOSARTAN 100MG TAB ONCE A DAY 100MG BY MOUTH ONCE A DAY 6) ATORVASTATIN TAB BY MOUTH LABS: CMP: SODIUM 131 L mEq/L 01/01/2024 11:30 POTASSIUM 3.8 mEq/L 01/01/2024 11:30 CHLORIDE 101 mEq/L 01/01/2024 11:30 UREA NITROGEN 10.4 mg/dL 01/01/2024 11:30 CREATININE 1.09 mg/dL 01/01/2024 11:30 CALCIUM 9.9 mg/dL 01/01/2024 11:30 PROTEIN 7.9 g/dL 01/01/2024 11:30 ALBUMIN 4.6 g/dL 01/01/2024 11:30 ALKALINE PHOSPHATASE 114 U/L 01/01/2024 11:30 ALT/SGPT 28 U/L 01/01/2024 11:30 AST/SGOT 37 H U/L 01/01/2024 11:30 TOTAL BILIRUBIN 1.2 mg/dL 01/01/2024 11:30 CARBON DIOXIDE 18 L mEq/L 01/01/2024 11:30 GLUCOSE 105 H mg/dL 01/01/2024 11:30 EGFR (CKD-EPI 2020) 74.4 01/01/2024 11:30 Creatinine: No CREATININE EO data found CBC: WBC 9.2 10*3/uL 01/01/2024 11:30 RBC 4.14 10*6/uL 01/01/2024 11:30 HGB 13.5 g/dL 01/01/2024 11:30 HCT 37.7 L % 01/01/2024 11:30 MCV 91.1 fL 01/01/2024 11:30 MCH 32.6 pg 01/01/2024 11:30 MCHC 35.8 g/dL 01/01/2024 11:30 RDW 11.9 % 01/01/2024 11:30 PLT 195 10*3/uL 01/01/2024 11:30 MPV 9.5 fL 01/01/2024 11:30 NEUTROPHILS, AUTO % 75 % 01/01/2024 11:30 LYMPHOCYTES, AUTO % 13 % 01/01/2024 11:30 MONOCYTES, AUTO % 10 % 01/01/2024 11:30 EOSINOPHILS, AUTO % 1 % 01/01/2024 11:30 BASOPHILS, AUTO % 1 % 01/01/2024 11:30 NEUTROPHILS, ABSOLUTE 6.96 10*3/uL 01/01/2024 11:30 LYMPHOCYTES, ABSOLUTE 1.18 10*3/uL 01/01/2024 11:30 MONOCYTES, ABSOLUTE 0.95 H 10*3/uL 01/01/2024 11:30 EOSINOPHILS, ABSOLUTE 0.05 10*3/uL 01/01/2024 11:30 BASOPHILS, ABSOLUTE 0.06 10*3/uL 01/01/2024 11:30 NEUTROPHILS 77.6 % 02/14/2023 10:52 BAND NEUTROPHILS 0.9 % 02/14/2023 10:52 LYMPHOCYTES 11.2 % 02/14/2023 10:52 MONOCYTES 6.9 % 02/14/2023 10:52 EOSINOPHILS 0.8 % 02/14/2023 10:52 BASOPHILS 0.9 % 02/14/2023 10:52 ATYPICAL LYMPHOCYTES 1.7 % 02/14/2023 10:52 PSA: PROST. SPECIFIC AG.(PB-STL) 0.828 ng/mL 09/28/2020 08:59 IMAGING: CT Scans: Date Procedure CPT Status Case # 02/12/2024 CT ABDOMEN AND PELVIS W/CONTRAST [id number] Pending [id number] ASSESSMENT & PLAN: 67 yo M with PMHx of stage II colon cancer s/p hemicolectomy in 2019, HTN, elevated liver enzymes is here today for follow up on colon cancer and iron overload. #Stage II Colon cancer -s/p Right hemicolectomy 04/06/2020 -colonoscopy on 03/28/21 showed adenomas, patient reports he had a repeat colonoscopy in late February 2023 and was within normal limits. [facility] He was told to plan for a repeat colonoscopy in 2 years. -CEA 1.86 (stable) as of 12/2022 -CT scans CAP clear in past ZEFERINO today (02/12/2024). Will plan on q6mo scans until at least the 5y jacinta. #Iron overload -concerns for hereditary hemochromatosis vs alocholic liver disease, follows with GI -H63D homozygous -ferritin elevated 596 --> 446---->500 in 12/2023 -GI recomnded liver biopsy for futher evaluation -Liver Bx, 3+ IRON -Had phlebotomy on 01/16/2024. Ferritin today pending. Anticipate another session today pending Hgb. Will have him return in 4-6 weeks for repeat labs and likely another phlebotomy. #Peripheral neuropathy -STable Peng Parry, PGY5 Hematology and Oncology CODE STATUS: Life Sustaining Treatment Orders /parker/ PENG PARRY M.D. Fellow Physician Signed: 02/12/2024 09:31 /parker/ LUCAS CHAN MD STAFF PHYSICIAN, HEMATOLOGY/ONCOLOGY Cosigned: 02/16/2024 10:29 02/16/2024 ADDENDUM STATUS: COMPLETED I have seen the patient with the fellow and agree with the plan of care as outlined above. /parker/ LUCAS CHAN MD STAFF PHYSICIAN, HEMATOLOGY/ONCOLOGY Signed: 02/16/2024 10:30 PENG PARRY [facility]
--- OUTSIDE RECORDS SUMMARY | 2024-12-13 13:16 | XMS_ITS | Referral Summary ---
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 Gender Identity Not on file Sexual Orientation Not on file Last Filed Vital Signs Vital Sign Reading Time Taken Comments Blood Pressure 130/81 06/07/2020 10:35 AM SLEEPING CAR CONDUCTOR Pulse 91 06/07/2020 10:35 AM SLEEPING CAR CONDUCTOR Temperature 36.6 C (97.9 F) 06/07/2020 10:35 AM SLEEPING CAR CONDUCTOR Respiratory Rate 18 06/07/2020 10:35 AM SLEEPING CAR CONDUCTOR Oxygen Saturation 99% 06/07/2020 10:35 AM SLEEPING CAR CONDUCTOR Inhaled Oxygen Concentration - - Weight 81 kg (178 lb 9.6 oz) 06/07/2020 10:35 AM SLEEPING CAR CONDUCTOR Height 185 cm (6' 0.84) 06/07/2020 10:35 AM SLEEPING CAR CONDUCTOR Body Mass Index 23.67 06/07/2020 10:35 AM SLEEPING CAR CONDUCTOR Plan of Treatment Not on file Medical Devices Implanted Type Area Animal Maintenance Supervisor Device Identifier Shelf Expiration Date Model / Serial / Lot Plate Plate N/A: Cervical-Tho racic Spine Insurance [facility] HMO REF IDPA [facility] H[facility] REF IDPA Advance Directives For more information, please contact: [phone] * Full Code (Latest Code Status on File) Date Activated Date Inactivated Comments 04/06/2020 2:13 PM 04/13/2020 11:21 PM Care Teams Piano Bench Assembler Relationship Specialty Start Date End Date Rick Serrato DO [address] [place] [address] PCP - General Internal Medicine 05/08/20 Todd Hill MD [address] [place] [address] Referring Physician Gastroenterology 03/27/20 Nicolas Hoffman MD [address] [place] [address] Consulting Physician Colon and Rectal Surgery 04/07/20
--- OUTSIDE RECORDS SUMMARY | 2024-12-13 13:16 | XMS_ITS | Clinical Summary ---
Author Organization [facility] Address [address] [place] [address] Care Team Providers Care Case Specialist Name Role Phone Rick Serrato Primary Care [...] Type Department Care Team Description 11/03/2024 Abstract [facility] Oncology and Hematology [facility] [address] [place] [address] Magdaleno Webster MD 11/02/2024 Telephone [facility] Oncology and Hematology [facility] [address] [place] [phone] Magdaleno Webster MD Surgical Clearance 10/13/2024 4:30 PM CDT Telephone Check Up [facility] Oncology and Hematology [facility] [address] [place] [phone] Magdaleno Webster MD Chronic anemia (Primary Dx); History of colon cancer 09/21/2024 External Device Data [facility] ABSTRACTION Provider, Abstract 09/21/2024 External Device Data [facility]STRA[facility] Provider, Abstract 09/21/2024 External Device Data [facility]STRACTION Provider, Abstract 09/20/2024 Orders Only [facility] Oncology and Hematology - [address] [place] [id number] Magdaleno Webster MD 09/16/2024 Orders Only [facility] Oncology and Hematology - [address] [place] [address] Lilo Oglesby MD 09/15/2024 2:30 PM CDT Office Visit [facility] Oncology and Hematology - [address] [place] [address] Lilo Oglesby MD Chronic anemia (Primary Dx); [...] Description 02/21/2025 2:45 PM CDT Office Visit [facility] Oncology and Hematology - [address] [place] [phone] Magdaleno Webster MD [address] [facility] [address] [place] [address] Health Maintenance Due Date Last Done Comments DTAP/TDAP/TD VACCINES (2 - T d or Tdap) 07/01/2023 07/01/2013 ZOSTER VACCINE (2 of 2) 03/12/2024 01/16/2024 INFLUENZA VACCINE (#1) 2024 3, 04/12/2020, 02/26/2018, Additional history exists RSV VACCINE (60+ or ) (1 - [...] from Last [address] [place] [address] MEDICAID [place] [facility] [id number] Care Teams Case Specialist Relationship Specialty Start Date End Date Rick Serrato DO [address] [id number] PCP - General Internal Medicine 09/30/23
--- OUTSIDE RECORDS SUMMARY | 2024-12-13 13:16 | XMS_ITS | Encounter Summary ---
Author Name [facility] Organization [facility] [place] Address [address] [place] [id number] Care Team Providers Care Veneer Puller Name Role Phone ISMAEL REYNOLDS Primary Care Provider Unavailabl e Insurance Providers: [...] Faulkner's Name Patient's Relationship to Policy [facility]ulkner [facility] (WNR) MEDICARE ADVANTAGE [facility] (WNR) May 26, 2023 [id number] DAVINA CASTRO PATIENT MEDICARE (WNR) MEDICARE (M) PART B Jul 24, 2012 PART B [id number] DAVINA CASTRO PATIENT MEDICARE (WNR) MEDICARE (M) PART A Aug 25, 2011 PART A [id number] [phone] DAVINA CASTRO PATIENT Selected Encounter This section includes the information on record at [place] for the Encounter. Date/Time Encounter Type Encounter Description Reason Provider Source Jan 16, 2024 08:30 AM OFFICE O/P EST MOD 30 MIN PRIMARY CARE/MEDICINE ICD-10-CM I10 Essential (primary) hypertension ISMAEL REYNOLDS E Encounter Template Text not used by [place] Assessments - Encounter Diagnoses This section includes the primary and secondary diagnoses documented for the Encounter. Date/Time Primary/Secondary Diagnosis Diagnosis Name Provider Source Jan 16, 2024 09:12 AM PRIMARY Essential (primary) hypertension ISMAEL REYNOLDS [facility] Jan 16, 2024 09:12 AM SECONDARY Alcohol dependence, uncomplicated ISMAEL REYNOLDS [facility] Jan 16, 2024 09:12 AM SECONDARY Encounter for immunization JERONIMO ALCALA [facility] Jan 16, 2024 09:12 AM SECONDARY Male erectile dysfunction, unspecified ISMAEL REYNOLDS [facility] Jan 16, 2024 09:12 AM SECONDARY Mixed hyperlipidemia ISMAEL REYNOLDS [facility] Plan of Treatment: Future Appointments (+ 6 months) and Future Tests (+/- 45 days) The Plan of Treatment section includes future care activities for the patient [facility] This section includes future appointments and future orders which are active, pending or scheduled. Future Appointments This section includes appointments that were scheduled to occur 6 months from the date of the Encounter, up to a maximum of 20 appointments. The data comes from all [place] treatment facilities. Appointment Date/Time Appointment Type Appointme nt Facility Name Feb 12, 2024 08:00 AM AMBULATORY - NONE [facility] Feb 12, 2024 09:00 AM AMBULATORY - MEDICINE [facility] Feb 12, 2024 09:30 AM AMBULATORY - MEDICINE [facility] Lab Results: +/- 30 days of the encounter This section includes the Chemistry and Hematology Lab Results on record with [place] for the patient. Radiology Reports and Pathology Reports are provided separately, in subsequent sections. Lab Results This section contains the Chemistry/Hematology Results that were resulted 30 days before or 30 daysafter the date of the Encounter. Date/Time Source Result Type Result - Unit Interpretation Reference Range Specimen Type Comment Feb 12, 2024 09:00 AM [facility] FERRITIN SERUM Specimen Type: SERUM Comment: The listed sex of this patient may not be a typical indication for this test. Therefore, reference ranges or interpretive criteria listed may not be valid. Clinical correlation suggested. Ordering Provider: REBECCA CHAN Report Released Date/Time: Jan 15, 2024 03:44 PM Reporting Lab: [facility] [address] [place] [phone] Performing Lab: [facility] [address] [place] [phone] FERRITIN 288.38 ng/mL H 22-275 Feb 12, 2024 09:00 AM [facility] IRON/TIBC PROFILE SERUM Specimen Type: SERUM No comment entered. Ordering Provider: REBECCA CHAN Report Released Date/Time: Jan 15, 2024 03:44 PM Reporting Lab: [address] [address] Performing Lab: [address] [address] TIBC 308 ug/dL 250-450 TRANSFERRIN 246 mg/dL 163-344 IRON SATURATION 37 20-50 IRON 115 ug/dL 65-175 Feb 12, 2024 09:00 AM [facility] HGA1C BLOOD Specimen Type: BLOOD No comment entered. Ordering Provider: ISMAEL REYNOLDS Report Released Date/Time: Jan 16, 2024 08:36 AM Reporting Lab: [address] [address] Performing Lab: [address] [address] HGA1C 5.3 4.0-6.0 Feb 12, 2024 09:00 AM [facility] PROST. SPECIFIC AG.(PB-STL) SERUM Specimen Ty pe: SERUM Comment: The listed sex of this patient may not be a typical indication for this test. Therefore, reference ranges or interpretive criteria listed may not be valid. Clinical correlation suggested. Ordering Provider: ISMAEL REYNOLDS Report Released Date/Time: Jan 16, 2024 08:36 AM Reporting Lab: [address] [phone] Performing Lab: [address] [place] [address] PROST. SPECIFIC AG.(PB-STL) 0.976 ng/mL 0-4 Feb 12, 2024 09:00 AM [facility] LIPID PANEL (STL) PLASMA Specimen Type: PLASM A Comment: No hemolysis noted. Ordering Provider: ISMAEL REYNOLDS Report Released Date/Time: Jan 16, 2024 08:36 AM Reporting Lab: [address] [address] Performing Lab: [address] [address] CHOLESTEROL 205 mg/dL H 0-200 TRIGLYCERIDE 73 mg/dL 0-150 CALCULATED LDL 116 mg/dL HDL(New) 74 mg/dL >40 Feb 12, 2024 09:00 AM [facility] COMPREHENSIVE METABOLIC PANEL PLASMA Specimen Type: PLASMA Comment: No hemolysis noted. Ordering Provider: REBECCA CHAN Report Released Date/Time: Jan 15, 2024 03:44 PM Reporting Lab: [address] [address] Performing Lab: [address] [address] CREATININE 1.12 mg/dL 0.7-1.3 UREA NITROGEN 12.7 [...] 72.0 >60 Feb 12, 2024 09:00 AM [facility] CBC BLOOD Specimen Type: BLOOD No comment entered. Ordering Provider: REBECCA CHAN Report Released Date/Time: Jan 15, 2024 03:44 PM Reporting Lab: [facility] [address] [facility] [address] Performing Lab: [place] [address] [facility] [address] WBC 7.2 10*3/uL 3.6-11.2 RBC 3.79 10*6/uL [...] 0.00-0. 20 Feb 12, 2024 07:57 AM [facility] I-STAT, CREAT ([facility]) BLOOD Specimen Type: B LOOD Comment: Test Performed by: [id number] Meter #: [id number] Ordering Provider: ISMAEL REYNOLDS Report Released Date/Time: Feb 12, 2024 08:10 AM Reporting Lab: [facility] [address] [facility] [address] Performing Lab: [place] [address] [facility] [address] I-STAT, CREAT ([facility]) 1.2 mg/dL 0.7-1.3 Jan 01, 2024 11:30 AM [facility] FERRITIN SERUM Specimen Type: SERUM No comment entered. Ordering Provider: REBECCA CHAN Report Released Date/Time: Jan 01, 2024 11:17 AM Reporting Lab: [address] [address] Performing Lab: [address] [address] FERRITIN 507.49 ng/mL H 22-275 Jan 01, 2024 11:30 AM [facility] COMPREHENSIVE METABOLIC PANEL PLASMA Specimen Type: PLASMA Comment: No hemolysis noted. Ordering Provider: REBECCA CHAN Report Released Date/Time: Jan 01, 2024 11:17 AM Reporting Lab: [address] [address] Performing Lab: [address] [address] CREATININE 1.09 mg/dL 0.7-1.3 UREA NITROGEN 10.4 mg/dL 9.0-25.0 GLUCOSE 105 mg/dL H 72-99 SODIUM 131 meq/L L 136-145 POTASSIUM 3.8 meq/L 3.5-5 CHLORIDE 101 meq/L 98-107 CARBON DIOXIDE 18 meq/L L 22-31 CALCIUM 9.9 mg/dL 8.4-10.4 PROTEIN 7.9 g/dL 6-8.6 ALBUMIN 4.6 g/dL 3.4-5 TOTAL BILIRUBIN 1.2 mg/dL 0.2-1.2 ALKALINE PHOSPHATASE 114 U/L 40-150 AST/SGOT 37 U/L H 5-34 ALT/SGPT 28 U/L 8-40 EGFR (CKD-EPI 2020) 74.4 >60 Jan 01, 2024 11:30 AM [facility] CBC BLOOD Specimen Type: BLOOD No comment entered. Ordering Provider: REBECCA CHAN Report Released Date/Time: Jan 01, 2024 11:17 AM Reporting Lab: [address] [address] Performing Lab: [address] [address] WBC 9.2 10*3/uL 3.6-11.2 RBC 4.14 10*6/uL 4.10-5.70 HGB 13.5 g/dL 13.1-16.8 HCT 37.7 L 38.2-48.4 MCV 91.1 fL 80.0-100.0 MCH 32.6 pg 27.0-34.0 MCHC 35.8 g/dL 33.0-36.0 PLT 195 10*3/uL 150-400 MPV 9.5 fL 7.5-11.2 RDW 11.9 11.8-15.1 LYMPHOCYTES, AUTO % 13 MONOCYTES, AUTO % 10 NEUTROPHILS, AUTO % 75 EOSINOPHILS, AUTO % 1 BASOPHILS, AUTO % 1 LYMPHOCYTES, ABSOLUTE 1.18 10*3/uL 0.77- 4.50 MONOCYTES, ABSOLUTE 0.95 10*3/uL H 0.19-0. 80 NEUTROPHILS, ABSOLUTE 6.96 10*3/uL 2.10- 8.00 EOSINOPHILS, ABSOLUTE 0.05 10*3/uL 0.00- 0.60 BASOPHILS, ABSOLUTE 0.06 10*3/uL 0.00-0. 20 Jan 01, 2024 11:30 AM [facility] IRON/TIBC PROFILE SERUM Specimen Type: SERUM No comment entered. Ordering Provider: REBECCA CHAN Report Released Date/Time: Jan 01, 2024 11:17 AM Reporting Lab: [place] [address] [facility] [address] Performing Lab: [address] [address] TIBC 316 ug/dL 250-450 TRANSFERRIN 253 mg/dL 163-344 IRON SATURATION 76 H 20-50 IRON 239 ug/dL H 65-175 Vital Signs: All taken on the encounter date This section contains inpatient and outpatient Vital Signs collected on the date of the Encounter. Date/Time Temperature Pulse Blood Pressure Respiratory Rate SP02 Pain Height Weight Body Mass Index Source Jan 16, 2024 08:20 AM 132/68 [facility] Jan 16, 2024 08:20 AM 98.9 97 155/84 18 99 0 73 168.5 22 [facility] N Immunizations: All administered on the encounter date This section contains immunizations associated to the Encounter. Immunization Series Date Issued Administered By Site Reaction Lot Number CVX Code Drug College Or [employer] Department Head Comment(s) Source PNEUMOCOCCAL CONJUGATE PCV20, POLYSACCHARID E [id number] CONJUGATE, ADJUVANT, PF Jan 16, 2024 SAMANTHAPAT LEFT DELTO ID [id number] [employer] ADMINISTERE D AT [facility] ZOSTER RECOMBINANT 1 Jan 16, 2024 SAMANTHAHERNANDOOSWALD BERUMEN Caesar RIGHT DELTO ID [id number] OrderlordI NE ADMINISTERE D AT [facility] Social History: Smoking Status (Most current) and Tobacco Use (All prior to encounter date) This section includes the most current, and the historical, smoking and tobacco- related health factors from the [place] facility where the Encounter took place. Current Smoking Status This section includes the most current smoking, or tobacco-related health factor, from the [place] facility where the Encounter took place. Date/Time Current Smoking Status Comment Iris watts Jan 16, 2024 08:30 AM VA-TOBACCO FORMER USER [facility] Tobacco Use History This section includes a history of the smoking, or tobacco-related health factors, that were collected on or before the date of the Encounter. The data comes from the [place] facility where the Encounter took place. Date/Time Smoking Status/Tobacco Use Comment F acility Jan 16, 2024 08:30 AM VA-TOBACCO QUIT 15 YRS OR MORE [facility] Apr 17, 2022 10:00 AM VA-TOBACCO FORMER USER [facility] Apr 17, 2022 10:00 AM VA-TOBACCO QUIT 15 YRS OR MORE [facility] Aug 31, 2020 03:00 PM VA-TOBACCO FORMER USER [facility] Aug 31, 2020 03:00 PM VA-TOBACCO QUIT 15 YRS OR MORE [facility] Aug 27, 2019 10:12 AM VA-TOBACCO FORMER USER [facility] Aug 27, 2019 10:12 AM VA-TOBACCO QUIT 15 YRS OR MORE [facility] May 11, 2018 08:48 AM VA-TOBACCO NEVER USED [facility] Apr 02, 2017 03:50 PM QUIT TOBACCO >7 YEARS AGO [facility] Jan 22, 2017 01:30 PM QUIT TOBACCO >7 YEARS AGO [facility] Jan 22, 2017 01:30 PM TOBACCO MEDS OFFER ED BUT DECLINED [facility] October 02, 2016 12:38 PM LIFETIME NON-USER OF TOBACCO [facility] Oct 25, 2015 03:19 PM QUIT TOBACCO >7 YEARS AGO [facility] Aug 03, 2014 03:07 PM QUIT TOBACCO >7 YEARS AGO [facility] Dec 24, 2012 02:49 PM QUIT TOBACCO >7 YEARS AGO [facility] Mar 12, 2012 12:20 PM QUIT TOBACCO >7 YEARS AGO [facility] Apr 26, 2009 02:52 PM QUIT TOBACCO >7 YEARS AGO [facility] Jun 22, 2008 01:51 PM CURRENT TOBACCO USER [facility] Jun 22, 2008 01:51 PM QUIT TOBACCO >12 M O & <7 YRS AGO [facility] Jun 22, 2008 01:[address] OP SMOKING CLINIC [facility] Jul 22, 2007 01:30 PM QUIT TOBACCO >12 M O & <7 YRS AGO [facility] Feb 19, 2006 03:16 PM CURRENT NON-TOBACC O USER-HX OF USE [facility] Feb 19, 2006 03:16 PM TOBACCO TERMINATION STAGE [facility] May 01, 2005 02:31 PM CURRENT NON-TOBACC O USER-HX OF USE [facility] May 01, 2005 02:31 PM TOBACCO TERMINATION STAGE [facility] October 17, 2004 02:02 PM CURRENT NON-TOBACC O USER-HX OF USE [facility] October 17, 2004 02:02 PM TOBACCO TERMINATION STAGE [facility] Sep 21, 2003 02:21 PM CURRENT NON-TOBACC O USER-HX OF USE [facility] Sep 21, 2003 02:21 PM TOBACCO ACTION STAGE [facility] Aug 10, 2003 02:23 PM CURRENT TOBACCO USER [facility] Aug 10, 2003 02:23 PM SMOKER 10-[facility] Aug 10, 2003 02:23 PM TOBACCO PREP STAGE . [facility] Nov 10, 2002 11:38 AM CURRENT TOBACCO USER [facility] October 13, 2002 02:25 PM CURRENT TOBACCO USER [facility] October 13, 2002 02:25 PM TOBACCO USE . [facility] Jun 09, 2002 03:19 PM CURRENT TOBACCO USER [facility] Jun 09, 2002 03:19 PM TOBACCO USE . [facility] Dec 10, 2000 03:03 PM CURRENT TOBACCO USER [facility] Dec 10, 2000 03:03 PM TOBACCO USE . [facility] Sep 03, 2000 01:22 PM CURRENT TOBACCO USER [facility] Radiology Reports: +/- 30 days of the [...] the Encounter. The data comes from all [facility] facilities. Date/Time Radiology Report Provider Source Feb 12, 2024 07:[address] CHEST W/CONTRAS T & 3D: DANIEL CASTRO [id number] -[id number] Ex Date: FEB 12, 2024@07:44 Req Phys: REBECCA CHAN Pat Loc: [facility]ONCOLOGY [facility] (Req'g Loc) Img Loc: [facility]-CT IMAGING Service: [address] [address] (Case [id number] COMPLETE) CT THORAX, DIAGNOSTIC, W/CONTRAS(CT Detailed) CPT:50409 Contrast Media : Non-ionic Iodinated Reason for Study: Restaging Stage II colon cancer Clinical History: Responsible Attending: Rebecca Chan Attending Contact Number: [phone] Resident Contact Number: Restaging Stage II COLON CANCER Allergies listed in CPRS chart: LISINOPRIL Creatinine: CREATININE 1.07 mg/dL 05/01/2023 09:35 /eGFR: STL EGFR (within one year). CREATININE 1.07 mg/dL (05/01/23 09:35) Wt: 165.8 lb [75.21 kg] (01/01/2024 11:34) History of: Renal failure, chronic or acute renal disease: NO Report Status: Verified Date Reported: FEB 12, 2024 Date Verified: FEB 12, 2024 Hris Specialist E-Sig:/ES/Christie Avila MD Report: CASE #: [id number], [id number], [id number] DATE:02/12/2024 9:01 AM CLINICAL HISTORY:Restaging Stage II [...] findings as discussed above. Primary Interpreting Staff: Christie Avila MD, Radiologist (Hris Specialist) /CHRISTIE BRIDGES [facility] Feb 12, 2024 07:[address] ABD PEL W/CONT & 3D: DANIEL CASTRO [id number] -[id number] M Exm Date: FEB 12, 2024@07:43 Req Phys: REBECCA CHAN Pat Loc: [facility]ONCOLOGY [facility] (Req'g Loc) Img Loc: [facility]-CT IMAGING [facility] Service: Unknown [facility], [address] [place] [address] (Case [id number] COMPLETE) CT ABDOMEN AND PELVIS W/CONTRAST (CT Detailed) CPT:57459 Contrast Media : Non-ionic Iodinated Reason for Study: Restaging Stage II Colon Cancer (Case [id number] COMPLETE) CT 3D RENDERING W INDEPENDENT WOR(CT Detailed) CPT:62179 Clinical History: Responsible Attending: Rebecca Chan Attending Contact Number: [phone] Resident Contact Number: Restaging Stage II Colorectal Cancer Allergies listed in CPRS chart: LISINOPRIL Creatinine:CREATININE 1.07 mg/dL 05/01/2023 09:35 /eGFR: STL EGFR (within one year). CREATININE 1.07 mg/dL (05/01/23 09:35) Wt: 165.8 lb [75.21 kg] (01/01/2024 11:34) History of: Renal failure, chronic or acute renal disease: NO Report Status: Verified Date Reported: FEB 12, 2024 Date Verified: FEB 12, 2024 Hris Specialist E-Sig:/ES/Christie Avila MD Report: CASE #: [id number], [id number], [id number] DATE:02/12/2024 9:01 AM CLINICAL HISTORY:Restaging Stage II [...] findings as discussed above. Primary Interpreting Staff: Christie Avila MD, Radiologist (Hris Specialist) /CHRISTIE BRIDGES [facility] Encounter Notes: All associated encounter notes This section contains the clinical notes associated to the Encounter. Date/Time Encounter Note(s) Provider Source Jan 16, 2024 08:22 AM NURSING NOTE: LOCAL TITLE: V15 PACT FACE TO FACE NOTE ST STANDARD TITLE: NURSING NOTE DATE OF NOTE: JAN 16, 2024@08:22 ENTRY DATE: JAN 16, 2024@08:22:38 AUTHOR: CELENA ALCALA EXP COSIGNER: URGENCY: STATUS: COMPLETED Provider Visit: Patient Identifiers : Full Name Date of Reason for visit:Pt a/o x3. No c/o pain or discomfort voiced. No s/s of distress noted. Established Follow-Up Mode of Arrival: Ambulatory Allergy Review: LISINOPRIL Allergy list reviewed and remains current. Recent Vital Signs: Temperature: 98.9 F [37.2 C] (01/16/2024 08:20) Pulse: 97 (01/16/2024 08:20) Respiration: 18 (01/16/2024 08:20) B/P: 132/68 (01/16/2024 08:20) Pain: 0 (01/16/2024 08:20) Wt: 168.5 lb [76.43 kg] (01/16/2024 08:20) Ht: 73 in [185.4 cm] (01/16/2024 08:20) BMI: 22.3 POX: 99% (01/16/2024 08:20) Would you like to discuss any personal problem, family problem, alcohol use, drug use, or a mental or emotional illness? No Contact provided Primary Care phone number and encouraged to call if any questions or concerns. Review that after hours nurse line [phone] and emergency room are available 16/12 for patient use. Contact verbalized good understanding. Information forwarded to [facility] for notification only. Suicide Screen: C-SSRS Screening Cass-Suicide Severity Rating Scale (C-SSRS Screener) 1. Over the past month, have you wished you were or wished you could go to sleep and not wake up? No 2. Over the past month, have you had any actual thoughts of killing yourself? No 3. Over the past month, have you been thinking about how you might do this? Response not required due to responses to other questions. 4. Over the past month, have you had these thoughts and had some intention of acting on them? Response not required due to responses to other questions. 5. Over the past month, have you started to work out or worked out the details of how to kill yourself? Response not required due to responses to other questions. 6. If yes, at any time in the past month did you intend to carry out this plan? Response not required due to responses to other questions. 7. In your lifetime, have you ever done anything, started to do anything, or prepared to do anything to end your life (for example, collected pills, obtained a gun, gave away valuables, went to the roof but didn't jump)? No 8. If YES, was this within the past 3 months? Response not required due to responses to other questions. Sexual Orientation: The patient thinks of their sexual orientation as: Straight or Heterosexual Alcohol Use Screen (AUDIT-C): Alcohol Screen: SCREEN FOR ALCOHOL (AUDIT-C) An alcohol screening test (AUDIT-C) was positive (score=11). 1. How often did you have a drink containing alcohol in the past year? Consider a drink to be a 12 ounce can or bottle of regular beer, 8 ounces of malt liquor, a 5 ounce glass of table wine, or a 1.5 ounce shot of liquor (like scotch, gin, or vodka). Four or more times a week 2. How many drinks containing alcohol did you have on a typical day when you were drinking in the past year? Seven to nine drinks 3. How often did you have six or more drinks on one occasion in the past year? Daily or almost daily Licensed Independent Provider notified of positive screen and need for follow-up. Name of provider notified: Homelessness/Food Insecurity Screen: In the past 2 months, have you been living in stable housing that you own, rent, or stay in as part of a household? Yes - Living in stable housing. Are you worried or concerned that in the next 2 months you may NOT have stable housing that you own, rent, or stay in as part of a household? No - Not worried about housing near future The [place] reports the following: Within the past 12 months, you worried whether your food would run out before you got money to buy more. Never true Within the past 12 months, the food you bought just didn't last and you didn't have money to get more. Never true Tobacco Use Screening: The patient is a former tobacco user. The patient quit fifteen or more years ago. Depression Screening: Perform PHQ-2 A PHQ-2 screen was performed. The score was 2 which is a negative screen for depression. Over the past two weeks, how often have you been bothered by the following problems? 1. Little interest or pleasure in doing things Several days 2. Feeling down, depressed, or hopeless Several days Toxic Exposure Screening: The /caregiver was asked if they believe the experienced any toxic exposure(s), such as Airborne Hazards and Open Burn Pit, [place] War related exposures, Agent Citrus, Radiation, contaminated water at [place] or other such exposures, while serving in the Armed [facility] [employer]. [place] has no concerns about toxic exposure(s) while serving in the Armed Forces. The /caregiver was informed that we will continue to ask this screening question every 5 years. They can contact their provider/healthcare team if they have concerns about exposures and would like to be screened sooner. Printed information was offered and provided if desired. Pneumococcal Conjugate Vaccine (PCV15/PCV20): See orders. PCV20 (Prevnar 20) Administered: PNEUMOCOCCAL CONJUGATE PCV20, POLYSACCHARIDE [id number] CONJUGATE, ADJUVANT, PF Date Administered: Jan 16, 2024 08:30 College Or [employer] Department Head: [employer] Lot: [id number] Exp Date: Jan 23, [address] [facility]: [phone] Admin Route/Site: INTRAMUSCULAR/LEFT DELTOID Dosage: 0.5mL Vaccine Information Statement(s): PNEUMOCOCCAL CONJUGATE ([id number]) VIS October 04, 2022 ([place]) Order By: Ismael Reynolds Administered By: Celena Alcala Vaccine Information Sheet (VIS) was given to the patient/caregiver, education regarding adverse reactions was discussed, as well as barriers to learning, if any, were acknowledged. Herpes Zoster (Shingles) Vaccine: see orders Administered: ZOSTER RECOMBINANT Date Administered: Jan 16, 2024 08:30 Series: Series 1 College Or University Department Head: [employer] Lot: [id number] Exp Date: Nov 06, [address] [facility]: [phone] Admin Route/Site: INTRAMUSCULAR/RIGHT DELTOID Dosage: 0.5mL Vaccine Information Statement(s): RECOMBINANT ZOSTER VACCINE VIS Jun 29, 2021 ([place]) Order By: Ismael Reynolds Administered By: Celena Alcala Vaccine Information Sheet (VIS) was given to the patient/caregiver, education regarding adverse reactions was discussed, as well as barriers to learning, if any, were acknowledged. /es/ CELENA ALCALA LICENSED PRACTICAL NURSE Signed: 01/16/2024 08:36 CELENA ALCALA [facility] Jan 16, 2024 08:21 AM PRIMARY CARE NOTE: LOCAL TITLE: PRIMARY CARE PROVIDER ESTABLISHED VISIT ST STANDARD TITLE: PRIMARY CARE NOTE DATE OF NOTE: JAN 16, 2024@08:21 ENTRY DATE: JAN 16, 2024@08:21:49 AUTHOR: ISMAEL REYNOLDS EXP COSIGNER: URGENCY: STATUS: COMPLETED Chief Complaint: Routine follow up History of Present Illness: Mr. 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 Reports cutting back on how much he's drinking. Currently drinking 6-7 - 12oz cans of beer a day. Would previously drink about 20 cans of beer and ~ 1/2 pint of whiskey a day. Pt does not check is BP at home but notes that this BP when he get's it checked at appointments or the fire station, it's usually 140/70s. He reports compliance with losartan. Was Follows with outside PCP at [facility] in [place], [place] who he reports he obtains some prescriptions such as losartan and lipitor. Uses [facility] on [address] in [place]. Past Medical History: 1) HYPERTENSION NOS 2) Alcohol dependence (SNOMED CT 25388329) 3) Back pain (SNOMED CT [id number]) 4) [facility] NOS 5) Tobacco Use Disorder * (ICD-9-CM 305.1) 6) Carpal Tunnel Syndrome * (ICD-9-CM 354.0) 7) Unspecified disorder of male genital organs (ICD-9-CM 608.9) 8) Erectile dysfunction (SNOMED CT 157801918) 9) Peripheral neuropathy (SNOMED CT 192461557) 10) Hypertension (SNOMED CT 27292562) 11) Pain, Neck 12) HLD - Hyperlipidemia (SNOMED CT 04230705) 13) 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 14) Impotence 15) Lumbar spondylosis 16) Tobacco use 17) Chronic recurrent major depressive disorder 18) Hyperlipidemia Medications: Active and Recently Outpatient Medications (including Supplies): Active Outpatient Medications Status 1) CAPSAICIN 0.075% CREAM APPLY SPARINGLY TO AFFECTED ACTIVE AREA(S) FOUR TIMES A DAY FOR NEUROPATHIC PAIN FOR EXTERNAL USE ONLY. WASH HANDS AFTER APPLICATION. Active Non-[facility] Medications Status 1) Non-VA GARLIC OIL CAP,ORAL BY MOUTH ACTIVE 2 Total Medications Allergies: LISINOPRIL Surgical History: - Right shoulder surgery - Lap R hemicolectomy on 04/06/2020 Social History: - Quit smoking about 20 years ago. Previously smoked 1ppd x 20 years - Smokes MJ 2-3x/week - Drinks 6-12oz cans of beer ~ 3-4 times a week Physical Exam: Today's Vitals: BP: P: R: WT: T: HT: Gen: Pt is a 68 year old MALE in no acute distress. Pt is well appearing and oriented to person, place, time, and situation. Skin: No skin scars, rashes, or bruises noted Head: NC/AT Eyes: PERRL, EOMI, no scleral icterus Ears: TM intact. No erythema, swelling, or discharge Nose: No discharge or boggy turbinates Throat: MMM, no erythema, swelling, exudates Neck: Supple, no LAD or thyromegaly appreciated Heart: RRR, normal S1 and, S2. 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 Suspect alcohol is contributory as well - Follows with GI and Heme/onc and receives phlebotomy #HTN BP controlled in office today - Losartan 100 mg qDaily (receives throught outside PCP) - Previously on diltiazem 240 mg qDaily but Pt has stopped taking that for some time - Given BP is controlled today and have limited BP data, will continue with losartan only at this time. BP cuff ordered and instructed Pt to measure BP 1-2x/week and document recordings. Discussed BP goal of < 140/90. If additional medication is needed will likely chose another agent other than diltiazem - Added lipid, A1c, and PSA to labs already ordered for 02/12/24 #Lumbar degenerative disc disease - Gabapentin 400 mg qHS #HLD - Atorvastatin (receives through outside PCP) #Alcohol use Pt continues to wean his alcohol consumption. Discussed naltrexone, however, Pt prefers to continue weaning - Strongly encouraged cessation. #ED - Sildenafil RTC: 6 months /es/ ISMAEL REYNOLDS MD Staff Physician Signed: 01/16/2024 09:13 ISMAEL REYNOLDS [facility]
--- OUTSIDE RECORDS SUMMARY | 2024-12-13 13:16 | XMS_ITS ---
Author Organization [facility] Address [address] [place] [address] Care Team Providers Care Assistant Shift Supervisor Name Role Phone Todd Hill MD Unavailable + Nicolas Hoffman MD Unavailable [phone] Rick Serrato DO Primary Care Provider [phone]- [phone] Active Problems Problem Noted Date Diagnosed Date Malignant neoplasm of transverse colon 0 Overview (03/30/2020): Added automatically from request for surgery [id number] Osteoarthritis of cervical spine 08/22/2014 Overview (08/31/2016): [...]
--- OUTSIDE RECORDS SUMMARY | 2024-12-13 13:16 | XMS_ITS | Encounter Summary ---
Author Organization [facility] Address [facility] [place] [address] Care Team Providers Care Scalping Machine Operator Name Role Phone Non-Staff, Provider Primary Care Provider Bradford castañeda Encounter Details Date Type Department Care Team (Late st Contact Info) Description 06/22/[address] 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
--- OUTSIDE RECORDS SUMMARY | 2024-12-13 13:16 | XMS_ITS | Continuity of Care Document ---
Author Name [facility] Organization [facility] Care Team Providers Care Strategic Intelligence Officer Name Role Phone [facility] Unavailable Unavailable Problems Combined list of problems from Department of Defense and [facility] Affairs facilities. It does not include entries that were removed or entered in error. Problem Status Onset Date Problem Type Date of Resolution Comments Source Alcohol dependence (SNOMED CT 29920226) Active Condition [facility] Back pain (SNOMED CT 607937700) Active Condition [facility] BACKACHE NOS Active Condition [facility] Carpal Tunnel Syndrome * (ICD-9-CM 354.0) Active Condition [facility] Chronic recurrent major depressive disorder Active Condition [facility] Erectile dysfunction (SNOMED CT 874375773) Active Condition [facility] HLD - Hyperlipidemia (SNOMED CT 27152893) Active Condition [facility] Hyperlipidemia Active Condition [facility] Hypertension (SNOMED CT 38045179) Active Condition [facility] HYPERTENSION NOS Active Condition [facility] 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 Active Condition [facility] Impotence Active Condition [facility] Lumbar spondylosis Active Condition [facility] Pain, Neck Active Condition [facility] Peripheral neuropathy (SNOMED CT 288250810) Active Condition [facility] Tobacco use Active Condition [facility] Tobacco Use Disorder * (ICD-9-CM 305.1) Active Condition [facility] Unspecified disorder of male genital organs (ICD-9-CM 608.9) Active Condition [facility] Diagnosis: ICD-10-CM E83.119 Hemochromatosis, unspecified Active Diagnosis [facility] Diagnosis: ICD-10-CM 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 [facility] Diagnosis: ICD-10-CM E83.110 Hereditary hemochromatosis Active Diagnosis [facility] Diagnosis: ICD-10-CM I10 Essential (primary) hypertension Active Diagnosis [facility] Diagnosis: ICD-10-CM C18.9 Malignant neoplasm of colon, unspecified Active Diagnosis [facility] Medications Combined list of outpatient medications from Department of Defense and [facility] facilities.Medications provided include 1) outpatient medications from the last 15 months, and 2) patient-reported medications. Medication Details Route Status Patient Instructions Prescription Expires Prescription Number Last Dispense Date Ordering Provider Order Date Order Qty Source ATORVASTATI N TAB TAKE BY MOUTH EVERY EVENING ORAL ACTIVE SHAUNA, LOR A 2023 [facility] GABAPENTIN 400MG CAP TAKE ONE CAPSULE BY MOUTH AT BEDTIME FOR PAIN ORAL ACTIVE 01/16/2025 [id number] 4 SHAUNA, LOR A 2023 90 [facility] GARLIC OIL CAP,ORAL TAKE BY MOUTH EVERY MORNING ORAL ACTIVE FIROZVI,A ROXANNE 2005 [facility] LOPERAMIDE HCL 2MG CAP TAKE ONE CAPSULE BY MOUTH FOUR TIMES A DAY NEEDED FOR DIARRHEA ORAL ACTIVE 01/16/2025 [id number] SHAUNA, LOR A 2023 120 [facility] [place] POTASSIUM 100MG TAB TAKE ONE TABLET BY MOUTH ONCE A DAY ORAL ACTIVE SHAUNA, LOR A 2023 [facility] SILDENAFIL CITRATE 100MG TAB TAKE ONE TABLET BY MOUTH ONE HOUR PRIOR TO SEXUAL ACTIVITY FOR ERECTILE DYSFUNCT ION NEEDED - LIMIT 6 DOSES PER 30 DAYS ORAL 04/15/2024 [id number] SHAUNA, LOR A [address] [facility] Allergies, Adverse Reactions, Alerts Combined list of allergies from Department of Defense and Veterans Affairs facilities. It does not include entries that were removed or entered in error. Substance Category Reaction Severity Reaction type Status Date Reported Comments Source LISINOPRIL Propensity to adverse reactions to drug (finding) Facial swelling MILD active 1 [facility] Immunizations Combined list of available immunizations from the Department of Defense and Veterans Affairs facilities. Immunization Series Date Given Administered By Site Reaction Lot Number CVX Code Drug Customer Sales Specialist Status Comments Source PNEUMOCOCCAL CONJUGATE PCV20, POLYSACCHARID E SYS031 CONJUGATE, ADJUVANT, PF 2023 PAT SINGH D LEFT DELTO ID [id number] 216 complet ed [facility] ZOSTER RECOMBINANT 1 2023 PAT SINGH D RIGHT DELTO ID [id number] 187 complet ed [facility] INFLUENZA, HIGH-DOSE, QUADRIVALENT 2022 [place] LEFT DELTO ID [id number] 197 complet ed [facility] INFLUENZA, INJECTABLE, QUADRIVALENT, PRESERVATIVE FREE 2 2019 150 complet ed HISTORICA L INFORMATI ON - FROM OTHER [facility] INFLUENZA, INJECTABLE, QUADRIVALENT, PRESERVATIVE FREE 2017 150 complet ed [facility] INFLUENZA, UNSPECIFIED FORMULATION 2016 88 complet ed [facility] PNEUMOCOCCAL POLYSACCHARID E [id number] 2015 33 complet ed [facility] INFLUENZA, UNSPECIFIED FORMULATION 2015 88 complet ed [facility] INFLUENZA, UNSPECIFIED FORMULATION 2015 88 complet ed [facility] INFLUENZA, UNSPECIFIED FORMULATION 2014 88 complet ed [facility] N INFLUENZA, UNSPECIFIED FORMULATION 2013 88 complet ed [facility] TDAP 2013 115 complet ed Right Deltoid [facility] INFLUENZA, UNSPECIFIED FORMULATION 2013 88 complet ed [facility] INFLUENZA, UNSPECIFIED FORMULATION 2013 88 complet ed [facility] INFLUENZA, SEASONAL, INJECTABLE 1 2012 141 complet ed HISTORICA L INFORMATI ON - FROM OTHER REGISTRY, [facility] INFLUENZA, UNSPECIFIED FORMULATION 2011 88 complet ed [facility] INFLUENZA, UNSPECIFIED FORMULATION 2010 88 complet ed [facility] INFLUENZA, UNSPECIFIED FORMULATION 2009 88 complet ed [facility] INFLUENZA, UNSPECIFIED FORMULATION 2008 88 complet ed [facility] INFLUENZA, UNSPECIFIED FORMULATION 2007 88 complet ed [facility] INFLUENZA (HISTORICAL) 1997 SARI AGUILAR 88 complet ed [facility] INFLUENZA (HISTORICAL) 1996 SARI AGUILAR 88 complet ed [facility] Results Combined list of recent chemistry, hematology and other laboratory results from Department of Defense and Veterans Affairs, ranging from 15 months to all on record, depending upon the facility. Order Name Results Value Reference Range Date Interpretation Specimen Comments Source FERRITIN FERRITIN [MASS/VOLUM E] IN SERUM OR PLASMA 288.38 ng/mL 22 - 275 02/11 H Specimen Type: SERUM Comment: The listed sex of this patient may not be a typical indication for this test. Therefore, reference ranges or interpretiv e criteria listed may not be valid. Clinical correlation suggested. Ordering Provider: DANIEL SMILEY Report Released Date/Time: Jan 15, 2024 03:44 PM Reporting Lab: [facility] [address] [facility] [address] Performing Lab: [facility] [address] [facility] [facility] [address] [facility] IRON/TIBC PROFILE IRON BINDING CAPACITY [MASS/VOLUM E] IN SERUM OR PLASMA 308 ug/dL 250 - 450 02/11 Specimen Type: SERUM No comment entered. Ordering Provider: DANIEL SMILEY Report Released Date/Time: Jan 15, 2024 03:44 PM Reporting Lab: [address] [address] Performing Lab: [address] [address] [facility] IRON/TIBC PROFILE TRANSFERRIN [MASS/VOLUM E] IN SERUM OR PLASMA 246 mg/dL 163 - 344 02/11 Specimen Type: SERUM No comment entered. Ordering Provider: DANIEL SMILEY Report Released Date/Time: Jan 15, 2024 03:44 PM Reporting Lab: [address] [address] Performing Lab: [address] [address] [facility] IRON/TIBC PROFILE IRON SATURATION [MASS FRACTION] IN SERUM OR PLASMA 37 20 - 50 02/11 Specimen Type: SERUM No comment entered. Ordering Provider: DANIEL SMILEY Report Released Date/Time: Jan 15, 2024 03:44 PM Reporting Lab: [address] [address] Performing Lab: [address] [address] [facility] IRON/TIBC PROFILE IRON [MASS/VOLUM E] IN SERUM OR PLASMA 115 ug/dL 65 - 175 02/11 Specimen Type: SERUM No comment entered. Ordering Provider: DANIEL SMILEY Report Released Date/Time: Jan 15, 2024 03:44 PM Reporting Lab: [address] [address] Performing Lab: [address] [address] [facility] LIPID PANEL (STL) CHOLESTEROL [MASS/VOLUM E] IN SERUM OR PLASMA 205 mg/dL 0 - 200 02/11 H Specimen Type: PLASMA Comment: No hemolysis noted. Ordering Provider: DESTIN VILLATORO Report Released Date/Time: Jan 16, 2024 08:36 AM Reporting Lab: [facility] [address] [facility] [address] Performing Lab: [facility] [address] [place] [address] [facility] LIPID PANEL (STL) TRIGLYCERID E [MASS/VOLUM E] IN SERUM OR PLASMA 73 mg/dL 0 - 150 02/11 Specimen Type: PLASMA Comment: No hemolysis noted. Ordering Provider: DESTIN VILLATORO Report Released Date/Time: Jan 16, 2024 08:36 AM Reporting Lab: [address] [address] Performing Lab: [address] [address] [facility] LIPID PANEL (STL) CHOLESTEROL IN LDL [MASS/VOLUM E] IN SERUM OR PLASMA BY CALCULATION 116 mg/dL 02/11 Specimen Type: PLASMA Comment: No hemolysis noted. Ordering Provider: DESTIN VILLATORO Report Released Date/Time: Jan 16, 2024 08:36 AM Reporting Lab: [address] [address] Performing Lab: [address] [address] [facility] LIPID PANEL (STL) CHOLESTEROL IN HDL [MASS/VOLUM E] IN SERUM OR PLASMA 74 mg/dL 40 02/11 Specimen Type: PLASMA Comment: No hemolysis noted. Ordering Provider: DESTIN VILLATORO Report Released Date/Time: Jan 16, 2024 08:36 AM Reporting Lab: [address] [address] Performing Lab: [address] [address] [facility] PROST. SPECIFIC AG.(PB-ST L) PROSTATE SPECIFIC AG [MASS/VOLUM E] IN SERUM OR PLASMA 0.976 ng/mL 0 - 4 02/11 Specimen Type: SERUM Comment: The listed sex of this patient may not be a typical indication for this test. Therefore, reference ranges or interpretiv e criteria listed may not be valid. Clinical correlation suggested. Ordering Provider: DESTIN VILLATORO Report Released Date/Time: Jan 16, 2024 08:36 AM Reporting Lab: [place] [address] [place] [address] Performing Lab: [address] HGA1C HEMOGLOBIN A1C/HEMOGLO BIN.TOTAL IN BLOOD 5.3 4.0 - 6.0 02/11 Specimen Type: BLOOD No comment entered. Ordering Provider: DESTIN VILLATORO Report Released Date/Time: Jan 16, 2024 08:36 AM Reporting Lab: [place] [address] [place] [phone] Performing Lab: [place] [address] [facility] [phone] [place] [address] COMPREHEN SIVE METABOLIC PANEL CREATININE [MASS/VOLUM E] IN SERUM OR PLASMA 1.12 mg/dL 0.7 - 1.3 02/11 Specimen Type: PLASMA Comment: No hemolysis noted. Ordering Provider: DANIEL SMILEY Report Released Date/Time: Jan 15, 2024 03:44 PM Reporting Lab: [address] [address] Performing Lab: [address] [phone] [place] [address] COMPREHEN SIVE METABOLIC PANEL UREA NITROGEN [MASS/VOLUM E] IN SERUM OR PLASMA 12.7 mg/dL 9.0 - 25.0 02/11 Specimen Type: PLASMA Comment: No hemolysis noted. Ordering Provider: DANIEL SMILEY Report Released Date/Time: Jan 15, 2024 03:44 PM Reporting Lab: [place] [address] [address] [facility] [address] Performing Lab: [place] [address] [facility] [address] [facility] COMPREHEN SIVE METABOLIC PANEL GLUCOSE [MASS/VOLUM E] IN SERUM OR PLASMA 112 mg/dL 72 - 99 02/11 H Specimen Type: PLASMA Comment: No hemolysis noted. Ordering Provider: DANIEL SMILEY Report Released Date/Time: Jan 15, 2024 03:44 PM Reporting Lab: [place] [address] [facility] [address] Performing Lab: [place] [address] [facility] [address] [facility] COMPREHEN SIVE METABOLIC PANEL SODIUM [MOLES/VOLU ME] IN SERUM OR PLASMA 132 meq/L 136 - 145 02/11 L Specimen Type: PLASMA Comment: No hemolysis noted. Ordering Provider: DANIEL SMILEY Report Released Date/Time: Jan 15, 2024 03:44 PM Reporting Lab: [place] [address] [facility] [address] Performing Lab: [place] [address] [facility] [address] [facility] COMPREHEN SIVE METABOLIC PANEL POTASSIUM [MOLES/VOLU ME] IN SERUM OR PLASMA 4.9 meq/L 3.5 - 5 02/11 Specimen Type: PLASMA Comment: No hemolysis noted. Ordering Provider: DANIEL SMILEY Report Released Date/Time: Jan 15, 2024 03:44 PM Reporting Lab: [place] [address] [facility] [address] Performing Lab: [address] [address] [facility] COMPREHEN SIVE METABOLIC PANEL CHLORIDE [MOLES/VOLU ME] IN SERUM OR PLASMA 99 meq/L 98 - 107 02/11 Specimen Type: PLASMA Comment: No hemolysis noted. Ordering Provider: DANIEL SMILEY Report Released Date/Time: Jan 15, 2024 03:44 PM Reporting Lab: [address] [address] Performing Lab: [place] [address] [facility] [address] [facility] COMPREHEN SIVE METABOLIC PANEL CARBON DIOXIDE, TOTAL [MOLES/VOLU ME] IN SERUM OR PLASMA 26 meq/L 22 - 31 02/11 Specimen Type: PLASMA Comment: No hemolysis noted. Ordering Provider: DANIEL SMILEY Report Released Date/Time: Jan 15, 2024 03:44 PM Reporting Lab: [address] [address] Performing Lab: [address] [phone] [place] [address] COMPREHEN SIVE METABOLIC PANEL CALCIUM [MASS/VOLUM E] IN SERUM OR PLASMA 9.8 mg/dL 8.4 - 10.4 02/11 Specimen Type: PLASMA Comment: No hemolysis noted. Ordering Provider: DANIEL SMILEY Report Released Date/Time: Jan 15, 2024 03:44 PM Reporting Lab: [place] [address] [facility] [address] Performing Lab: [place] [address] [facility] [address] [facility] COMPREHEN SIVE METABOLIC PANEL PROTEIN [MASS/VOLUM E] IN SERUM OR PLASMA 7.8 g/dL 6 - 8.6 02/11 Specimen Type: PLASMA Comment: No hemolysis noted. Ordering Provider: DANIEL SMILEY Report Released Date/Time: Jan 15, 2024 03:44 PM Reporting Lab: [address] [address] Performing Lab: [address] [address] [facility] COMPREHEN SIVE METABOLIC PANEL ALBUMIN [MASS/VOLUM E] IN SERUM OR PLASMA 4.6 g/dL 3.4 - 5 09/19 /2024 Specimen Type: PLASMA Comment: No hemolysis noted. Ordering Provider: DANIEL SMILEY Report Released Date/Time: Jan 15, 2024 03:44 PM Reporting Lab: [address] [address] Performing Lab: [place] [address] [facility] [address] [facility] COMPREHEN SIVE METABOLIC PANEL BILIRUBIN.T OTAL [MASS/VOLUM E] IN SERUM OR PLASMA 0.7 mg/dL 0.2 - 1.2 02/11 Specimen Type: PLASMA Comment: No hemolysis noted. Ordering Provider: DANIEL SMILEY Report Released Date/Time: Jan 15, 2024 03:44 PM Reporting Lab: [address] [address] Performing Lab: [address] [address] [facility] COMPREHEN SIVE METABOLIC PANEL ALKALINE PHOSPHATASE [ENZYMATIC ACTIVITY/VO LUME] IN SERUM OR PLASMA 117 U/L 40 - 150 02/11 Specimen Type: PLASMA Comment: No hemolysis noted. Ordering Provider: DANIEL SMILEY Report Released Date/Time: Jan 15, 2024 03:44 PM Reporting Lab: [address] [address] Performing Lab: [address] [address] [facility] COMPREHEN SIVE METABOLIC PANEL ASPARTATE AMINOTRANSF ERASE [ENZYMATIC ACTIVITY/VO LUME] IN SERUM OR PLASMA 25 U/L 5 - 34 02/11 Specimen Type: PLASMA Comment: No hemolysis noted. Ordering Provider: DANIEL SMILEY Report Released Date/Time: Jan 15, 2024 03:44 PM Reporting Lab: [address] [address] Performing Lab: [address] [address] [facility] COMPREHEN SIVE METABOLIC PANEL ALANINE AMINOTRANSF ERASE [ENZYMATIC ACTIVITY/VO LUME] IN SERUM OR PLASMA 14 U/L 8 - 40 02/11 Specimen Type: PLASMA Comment: No hemolysis noted. Ordering Provider: DANIEL SMILEY Report Released Date/Time: Jan 15, 2024 03:44 PM Reporting Lab: [address] [address] Performing Lab: [place] [phone] COMPREHEN SIVE METABOLIC PANEL GLOMERULAR FILTRATION RATE/1.73 SQ M.PREDICTED [VOLUME RATE/AREA] IN SERUM, PLASMA OR BLOOD BY CREATININE- BASED FORMULA (CKD-EPI 2020) 72.0 60 02/11 Specimen Type: PLASMA Comment: No hemolysis noted. Ordering Provider: DANIEL MSILEY Report Released Date/Time: Jan 15, 2024 03:44 PM Reporting Lab: [address] [address] Performing Lab: [address] [phone] [place] [address] CBC LEUKOCYTES [#/VOLUME] IN BLOOD BY AUTOMATED COUNT 7.2 10*3/u L 3.6 - 11.2 02/11 Specimen Type: BLOOD No comment entered. Ordering Provider: DANIEL SMILEY Report Released Date/Time: Jan 15, 2024 03:44 PM Reporting Lab: [address] [address] Performing Lab: [address] [phone] [place] [address] CBC ERYTHROCYTE S [#/VOLUME] IN BLOOD BY AUTOMATED COUNT 3.79 10*6/u L 4.10 - 5.70 02/11 L Specimen Type: BLOOD No comment entered. Ordering Provider: DANIEL SMILEY Report Released Date/Time: Jan 15, 2024 03:44 PM Reporting Lab: [address] [place] [address] Performing Lab: [address] [address] [facility] CBC HEMOGLOBIN [MASS/VOLUM E] IN BLOOD 12.2 g/dL 13.1 - 16.8 02/11 L Specimen Type: BLOOD No comment entered. Ordering Provider: DANIEL SMILEY Report Released Date/Time: Jan 15, 2024 03:44 PM Reporting Lab: [address] [address] Performing Lab: [address] [address] [facility] CBC HEMATOCRIT [VOLUME FRACTION] OF BLOOD 36.7 38.2 - 48.4 02/11 L Specimen Type: BLOOD No comment entered. Ordering Provider: DANIEL SMILEY Report Released Date/Time: Jan 15, 2024 03:44 PM Reporting Lab: [address] [address] Performing Lab: [address] [address] [facility] CBC MCV [ENTITIC VOLUME] BY AUTOMATED COUNT 96.8 fL 80.0 - 100.0 02/11 Specimen Type: BLOOD No comment entered. Ordering Provider: DANIEL SMILEY Report Released Date/Time: Jan 15, 2024 03:44 PM Reporting Lab: [address] [address] Performing Lab: [address] [address] [facility] CBC MCH [ENTITIC MASS] BY AUTOMATED COUNT 32.2 pg 27.0 - 34.0 02/11 Specimen Type: BLOOD No comment entered. Ordering Provider: DANIEL SMILEY Report Released Date/Time: Jan 15, 2024 03:44 PM Reporting Lab: [address] [address] Performing Lab: [place] [address] [facility] [address] [facility] CBC MCHC [MASS/VOLUM E] BY AUTOMATED COUNT 33.2 g/dL 33.0 - 36.0 02/11 Specimen Type: BLOOD No comment entered. Ordering Provider: DANIEL SMILEY Report Released Date/Time: Jan 15, 2024 03:44 PM Reporting Lab: [address] [address] Performing Lab: [address] [phone] [place] [address] CBC PLATELETS [#/VOLUME] IN BLOOD BY AUTOMATED COUNT 208 10*3/u L 150 - 400 02/11 Specimen Type: BLOOD No comment entered. Ordering Provider: DANIEL SMILEY Report Released Date/Time: Jan 15, 2024 03:44 PM Reporting Lab: [address] [address] Performing Lab: [address] [address] [facility] CBC PLATELET MEAN VOLUME [ENTITIC VOLUME] IN BLOOD BY AUTOMATED COUNT 9.6 fL 7.5 - 11.2 02/11 Specimen Type: BLOOD No comment entered. Ordering Provider: DANIEL SMILEY Report Released Date/Time: Jan 15, 2024 03:44 PM Reporting Lab: [address] [address] Performing Lab: [address] [address] [facility] CBC ERYTHROCYTE DISTRIBUTIO N WIDTH [RATIO] BY AUTOMATED COUNT 12.9 11.8 - 15.1 02/11 Specimen Type: BLOOD No comment entered. Ordering Provider: DANIEL SMILEY Report Released Date/Time: Jan 15, 2024 03:44 PM Reporting Lab: [address] [address] Performing Lab: [facility] [address] [facility] [address] [facility] CBC LYMPHOCYTES /100 LEUKOCYTES IN BLOOD BY AUTOMATED COUNT 13 02/11 Specimen Type: BLOOD No comment entered. Ordering Provider: DANIEL SMILEY Report Released Date/Time: Jan 15, 2024 03:44 PM Reporting Lab: [facility] [address] [facility] [address] Performing Lab: [facility] [address] [facility] [address] [facility] CBC MONOCYTES/1 00 LEUKOCYTES IN BLOOD BY AUTOMATED COUNT 11 02/11 Specimen Type: BLOOD No comment entered. Ordering Provider: DANIEL SMILEY Report Released Date/Time: Jan 15, 2024 03:44 PM Reporting Lab: [facility] [address] [facility] [address] Performing Lab: [facility] [address] [facility] [address] [facility] CBC NEUTROPHILS /100 LEUKOCYTES IN BLOOD BY AUTOMATED COUNT 73 02/11 Specimen Type: BLOOD No comment entered. Ordering Provider: DANIEL SMILEY Report Released Date/Time: Jan 15, 2024 03:44 PM Reporting Lab: [facility] [address] [facility] [address] Performing Lab: [facility] [address] [facility] [address] [facility] CBC EOSINOPHILS /100 LEUKOCYTES IN BLOOD BY AUTOMATED COUNT 3 02/11 Specimen Type: BLOOD No comment entered. Ordering Provider: DANIEL SMILEY Report Released Date/Time: Jan 15, 2024 03:44 PM Reporting Lab: [facility] [address] [facility] [address] Performing Lab: [facility] [address] [facility] [address] [facility] CBC BASOPHILS/1 00 LEUKOCYTES IN BLOOD BY AUTOMATED COUNT 1 02/11 Specimen Type: BLOOD No comment entered. Ordering Provider: DANIEL SMILEY Report Released Date/Time: Jan 15, 2024 03:44 PM Reporting Lab: [address] [address] Performing Lab: [address] [address] [facility] CBC LYMPHOCYTES [#/VOLUME] IN BLOOD BY AUTOMATED COUNT 0.96 10*3/u L 0.77 - 4.50 02/11 Specimen Type: BLOOD No comment entered. Ordering Provider: DANIEL SMILEY Report Released Date/Time: Jan 15, 2024 03:44 PM Reporting Lab: [address] [address] Performing Lab: [address] [address] [facility] CBC MONOCYTES [#/VOLUME] IN BLOOD BY AUTOMATED COUNT 0.75 10*3/u L 0.19 - 0.80 02/11 Specimen Type: BLOOD No comment entered. Ordering Provider: DANIEL SMILEY Report Released Date/Time: Jan 15, 2024 03:44 PM Reporting Lab: [address] [address] Performing Lab: [address] [address] [facility] CBC NEUTROPHILS [#/VOLUME] IN BLOOD BY AUTOMATED COUNT 5.19 10*3/u L 2.10 - 8.00 02/11 Specimen Type: BLOOD No comment entered. Ordering Provider: DANIEL SMILYE Report Released Date/Time: Jan 15, 2024 03:44 PM Reporting Lab: [address] [address] Performing Lab: [address] [address] [facility] CBC EOSINOPHILS [#/VOLUME] IN BLOOD BY AUTOMATED COUNT 0.18 10*3/u L 0.00 - 0.60 02/11 Specimen Type: BLOOD No comment entered. Ordering Provider: DANEIL SMILEY Report Released Date/Time: Jan 15, 2024 03:44 PM Reporting Lab: [address] [address] Performing Lab: [address] [phone] [place] [address] CBC BASOPHILS [#/VOLUME] IN BLOOD BY AUTOMATED COUNT 0.05 10*3/u L 0.00 - 0.20 02/11 Specimen Type: BLOOD No comment entered. Ordering Provider: DANIEL SMILEY Report Released Date/Time: Jan 15, 2024 03:44 PM Reporting Lab: [address] [address] Performing Lab: [address] [phone] [place] [address] I-STAT, CREAT ([facility]) CREATININE [MASS/VOLUM E] IN BLOOD 1.2 mg/dL 0.7 - 1.3 02/11 Specimen Type: BLOOD Comment: Test Performed by: [id number] Meter #: [id number] Ordering Provider: DESTIN VILLATORO Report Released Date/Time: Feb 12, 2024 08:10 AM Reporting Lab: [address] [address] Performing Lab: [address] [place] [address] IRON/TIBC PROFILE IRON BINDING CAPACITY [MASS/VOLUM E] IN SERUM OR PLASMA 316 ug/dL 250 - 450 12/31 Specimen Type: SERUM No comment entered. Ordering Provider: DANIEL SMILEY Report Released Date/Time: Jan 01, 2024 11:17 AM Reporting Lab: [address] [address] Performing Lab: [place] [id number] [facility] IRON/TIBC PROFILE TRANSFERRIN [MASS/VOLUM E] IN SERUM OR PLASMA 253 mg/dL 163 - 344 12/31 Specimen Type: SERUM No comment entered. Ordering Provider: DANIEL SMILEY Report Released Date/Time: Jan 01, 2024 11:17 AM Reporting Lab: [address] [address] Performing Lab: [address] [address] [facility] IRON/TIBC PROFILE IRON SATURATION [MASS FRACTION] IN SERUM OR PLASMA 76 20 - 50 12/31 H Specimen Type: SERUM No comment entered. Ordering Provider: DANIEL SMILEY Report Released Date/Time: Jan 01, 2024 11:17 AM Reporting Lab: [address] [address] Performing Lab: [address] [address] [facility] IRON/TIBC PROFILE IRON [MASS/VOLUM E] IN SERUM OR PLASMA 239 ug/dL 65 - 175 12/31 H Specimen Type: SERUM No comment entered. Ordering Provider: DANIEL SMILEY Report Released Date/Time: Jan 01, 2024 11:17 AM Reporting Lab: [address] [address] Performing Lab: [address] [address] [facility] FERRITIN FERRITIN [MASS/VOLUM E] IN SERUM OR PLASMA 507.49 ng/mL 22 - 275 12/31 H Specimen Type: SERUM No comment entered. Ordering Provider: DANIEL SMILEY Report Released Date/Time: Jan 01, 2024 11:17 AM Reporting Lab: [address] [address] Performing Lab: [address] [address] [facility] Vital Signs Combined list of inpatient and outpatient Vital Signs from Department of Defense and Veterans Affairs, ranging from 12 months to all on record, depending upon the facility. Vital Sign Value Date Comments Source SYSTOLIC BLOOD PRESSURE 147 02/12/2024 09:00:37 [facility] DIASTOLIC BLOOD PRESSURE 89 02/12/2024 09:00:37 [facility] PULSE OXIMETRY 99 02/12/2024 09:00:37 Perry Schilling [facility] WEIGHT 170 02/12/2024 09:00:37 [facility] BMI 22 kg/m2 02/12/2024 09:00:37 [facility] TEMPERATURE 98.1 02/12/2024 09:00:37 [facility] PULSE 97 02/12/2024 09:00:37 [facility] RESPIRATION 18 02/12/2024 09:00:37 [facility] SYSTOLIC BLOOD PRESSURE 155 01/16/2024 08:20:03 [facility] DIASTOLIC BLOOD PRESSURE 84 01/16/2024 08:20:03 [facility] PULSE OXIMETRY 99 01/16/2024 08:20:03 [facility] WEIGHT 168.5 01/16/2024 08:20:03 [facility] BMI 22 kg/m2 01/16/2024 08:20:03 [facility] PAIN 0 01/16/2024 08:20:03 [facility] HEIGHT 73 01/16/2024 08:20:03 [facility] TEMPERATURE 98.9 01/16/2024 08:20:03 [facility] PULSE 97 01/16/2024 08:20:03 [facility] RESPIRATION 18 01/16/2024 08:20:03 [facility] SYSTOLIC BLOOD PRESSURE 149 01/01/2024 11:34:37 [facility] DIASTOLIC BLOOD PRESSURE 83 01/01/2024 11:34:37 [facility] PULSE OXIMETRY 96 01/01/2024 11:34:37 [facility] WEIGHT 165.8 01/01/2024 11:34:37 [facility] BMI 23 kg/m2 01/01/2024 11:34:37 [facility] TEMPERATURE 97.6 01/01/2024 11:34:37 [facility] PULSE 120 01/01/2024 11:34:37 [facility] RESPIRATION 20 01/01/2024 11:34:37 [facility] Encounters Combined list of: 1) Encounters from Department of [facility] Affairs facilities going backup to the last 18 months, not all [place] inpatient encounters are included; 2) Encounters from the Department of [facility] facilities going backup to 280 months. Location Location Details Encounter Type Encounter Number Reason For Visit Attending Provider ADM Date DC Date Status Disposition Source [facility] Outpatient Encounter [id number] 06/18 [facility] N [facility] Outpatient Encounter [id number] 11/27 [facility] N [facility] OFFICE O/P EST MOD 30 MIN [id number] Diagnos is: ICD-10- CM C18.9 Maligna nt neoplas m of colon, unspeci fied JORGE SMILEY SE 12/31 [facility] N [facility] Outpatient Encounter [id number] 12/31 [facility] N [facility] Outpatient Encounter [id number] 12/31 [facility] Outpatient Encounter [id number] Diagnos is: ICD-10- CM E83.119 Hemochr omatosi s, unspeci JORGE Esteves SE 01/14 [facility] Outpatient Encounter [id number] DAVINA SINGH 01/14 [facility] OFFICE O/P EST MOD 30 MIN [id number] Diagnos is: ICD-10- CM I10 Essenti al (primar y) hyperte nsion Sony VILLATORO 01/15 [facility] PHLEBOTOMY [id number] Diagnos is: ICD-10- CM E83.110 Heredit yareli hemochr omatosi s COOKIE SOLITARIO 01/15 [facility] OFFICE O/P EST HI 40 MIN [id number] Diagnos is: ICD-10- CM D01.0 Carcino ma in situ of colon JORGE SMILEY SE 02/11 [facility] PHLEBOTOMY [id number] Diagnos is: ICD-10- CM E83.119 Hemochr omatosi s, unspeci ALECIA Haque 02/11 [facility] Outpatient Encounter [id number] 07/13 [facility] Social History Combined list of available smoking, tobacco, and other social history from Department of Defense and Veterans Affairs facilities. Social History Type Response Date Comment Sourc e Tobacco [facility] History of tobacco use VA-TOBACCO FORMER USER 01/16/2024 [facility] History of tobacco use VA-TOBACCO FORMER USER 04/17/2022 [facility] History of tobacco use VA-TOBACCO FORMER USER 08/31/2020 [facility] History of tobacco use NH-TOBACCO FORMER USER 08/27/2019 [facility] History of tobacco use VA-TOBACCO NEVER USED 05/11/2018 [facility] History of tobacco use QUIT TOBACCO >7 Y EARS AGO 04/02/2017 [facility] History of tobacco use QUIT TOBACCO >7 Y EARS AGO 01/22/2017 [facility] History of tobacco use LIFETIME NON-USER OF TOBACCO 10/02/2016 [facility] History of tobacco use QUIT TOBACCO >7 Y EARS AGO 10/25/2015 [facility] History of tobacco use QUIT TOBACCO >7 Y EARS AGO 08/03/2014 [facility] History of tobacco use QUIT TOBACCO >7 Y EARS AGO 12/24/2012 [facility] History of tobacco use QUIT TOBACCO >7 Y EARS AGO 03/12/2012 [facility] History of tobacco use QUIT TOBACCO >7 Y EARS AGO 04/26/2009 [facility] History of tobacco use QUIT TOBACCO >12 MO and <7 YRS AGO 06/22/2008 [facility] History of tobacco use QUIT TOBACCO >12 MO and <7 YRS AGO 07/22/2007 [facility] History of tobacco use CURRENT NON-TOBAC CO USER-HX OF USE 02/19/2006 [facility] History of tobacco use CURRENT NON-TOBAC CO USER-HX OF USE 05/01/2005 [facility] History of tobacco use CURRENT NON-TOBAC CO USER-HX OF USE 10/17/2004 [facility] History of tobacco use CURRENT NON-TOBAC CO USER-HX OF USE 09/21/2003 [facility] History of tobacco use CURRENT TOBACCO USER 08/10/2003 [facility] History of tobacco use CURRENT TOBACCO USER 11/10/2002 [facility] History of tobacco use CURRENT TOBACCO USER 10/13/2002 [facility] History of tobacco use CURRENT TOBACCO USER 06/09/2002 [facility] History of tobacco use CURRENT TOBACCO USER 12/10/2000 [facility] History of tobacco use CURRENT TOBACCO USER 09/03/2000 [facility]
--- OUTSIDE RECORDS SUMMARY | 2024-12-13 13:16 | XMS_ITS | Clinical Summary ---
Author Organization [facility] Address [facility] [place] [address] Care Team Providers Care Dry Dip Worker Name Role Phone Non-Staff, Provider Primary Care [...] on file Legal Sex Male 4:18 PM SILICA MIXER OPERATOR Gender Identity Not on file Sexual Orientation Not on file Last Filed Vital Signs Vital Sign Reading Time Taken Comments Blood Pressure 150/98 04/21/2023 9:03 AM SILICA MIXER OPERATOR Pulse 81 04/21/2023 9:03 AM SILICA MIXER OPERATOR Temperature 37.3 C (99.1 F) 04/21/2023 7:37 AM SILICA MIXER OPERATOR Respiratory Rate 18 04/21/2023 7:37 AM SILICA MIXER OPERATOR Oxygen Saturation 100% 04/21/2023 9:03 AM SILICA MIXER OPERATOR Inhaled Oxygen Concentration - - Weight 84.4 kg (186 lb) 04/11/2023 1:20 PM SILICA MIXER OPERATOR Height 182.9 cm (6') 04/11/2023 1:20 PM SILICA MIXER OPERATOR Body Mass Index 25.23 04/11/2023 1:20 PM SILICA MIXER OPERATOR Plan of Treatment Health Maintenance Due Date [...] this topic Medical Devices Implanted Type Area Radiotelegraphist Device Identifier Shelf Expiration Date Model / Serial / Lot Tecnis 1-Piece Iol Implanted:Qty: 1 on 04/21/2023 by João Baldwin MD at [facility] 10/22/2025 / [id number] / Insurance MEDICAID [facility] Care Teams Dry Dip Worker Relationship Specialty Start Date End Date Non-Staff, Provider PCP - General UNKNOWN PHYSICIAN SPECIALTY 04/14/23
--- OUTSIDE RECORDS SUMMARY | 2024-12-13 13:16 | XMS_ITS | Clinical Summary ---
Author Organization [facility] Address [address] [place] [address] Care Team Providers Care Hot Dip Plater Name Role Phone Todd Hill MD Unavailable + Nicolas Hoffman MD Unavailable +1- [phone] Rick Serrato DO Primary Care Provider +1- [phone] Allergies Active Allergy Reactions Criticality Noted Date [...] (03/30/2020): Added automatically from request for surgery [id number] Osteoarthritis of cervical spine 08/22/2014 Overview (08/31/2016): [...] on file Legal Sex Male 7:28 PM IT SENIOR SOFTWARE ENGINEER JAVA Gender Identity Not on file Sexual Orientation Not on file Obstetrics History Last Filed Vital Signs Vital Sign Reading Time Taken Comments Blood Pressure 130/81 06/07/2020 10:35 AM IT SENIOR SOFTWARE ENGINEER JAVA Pulse 91 06/07/2020 10:35 AM IT SENIOR SOFTWARE ENGINEER JAVA Temperature 36.6 C (97.9 F) 06/07/2020 10:35 AM IT SENIOR SOFTWARE ENGINEER JAVA Respiratory Rate 18 06/07/2020 10:35 AM IT SENIOR SOFTWARE ENGINEER JAVA Oxygen Saturation 99% 06/07/2020 10:35 AM IT SENIOR SOFTWARE ENGINEER JAVA Inhaled Oxygen Concentration - - Weight 81 kg (178 lb 9.6 oz) 06/07/2020 10:35 AM IT SENIOR SOFTWARE ENGINEER JAVA Height 185 cm (6' 0.84) 06/07/2020 10:35 AM IT SENIOR SOFTWARE ENGINEER JAVA Body Mass Index 23.67 06/07/2020 10:35 AM IT SENIOR SOFTWARE ENGINEER JAVA Plan of Treatment Not on file Medical Devices Implanted Type Area Cab Supervisor Device Identifier Shelf Expiration Date Model / Serial / Lot Plate Plate N/A: Cervical-Tho racic Spine Insurance UHC MDCR HMO REF IDPA IDPA Advance Directives For more information, please contact: [phone] * Full Code (Latest Code Status on File) Date Activated Date Inactivated Comments 04/06/2020 2:13 PM 04/13/2020 11:21 PM Care Teams Hot Dip Plater Relationship Specialty Start Date End Date Rick Serrato DO [address] [place] [address] PCP - General Internal Medicine 05/08/20 Todd Hill MD [address] [facility] [address] [place] [address] Referring Physician Gastroenterology 03/27/20 Nicolas Hoffman MD [address] [facility] [address] [place] [address] Consulting Physician Colon and Rectal Surgery 04/07/20
[2024-12-13 14:18] LABS: Hematocrit 34.9 % (42.0-52.0); Hemoglobin 12.1 g/dL (14.0-18.0); Immature Granulocyte Percent A 0.3 % (0-0.5); Lymphocytes Absolute Auto 1.13 K/mm3 (0.9-3.2); Mean Corpuscular HGB Conc 34.7 g/dl (32-36); Mean Corpuscular Hemoglobin 32.6 pg (26-34); Mean Corpuscular Volume 94.1 fl (80-100); Nucleated Red Blood Cells Absolute Auto 0.000 K/mm3 (0.0-0.012); Nucleated Red Blood Cells Perc 0.0 % (0.0-0.2); Platelet Count Result 190 k/mm3 (150-375); Red Blood Count 3.71 M/mm3 (4.6-6.20); White Blood Count 6.3 K/mm3 (4.5-10.0)
[2024-12-13 14:29] LABS: INR 1.0; Partial Thromboplastin Time 25.7 Seconds (22.3-36.8); Prothrombin Time 13.4 Seconds (11.1-14.7)
[2024-12-13 14:42] LABS: Albumin Level 4.7 g/dL (3.5-5.1); Anion Gap 10 mmol/L (4-12); Blood Urea Nitrogen 11 mg/dL (9-20); Calcium 9.4 mg/dL (8.4-10.2); Carbon Dioxide 22 mmol/L (22-30); Chloride 97 mmol/L (98-107); Estimated Glomerular Filt Rate > 60; Glucose 98 mg/dL (65-110); Potassium 4.1 mmol/L (3.4-5.0); Sodium 129 mmol/L (137-145)
[2024-12-13 14:54] LABS: Hemoglobin A1C 5.6 % (<5.7)
[2024-12-13 15:29] LABS: MRSA (PCR) NOT DETECTED (NOT DETECTE)
== END 2024-12-13 13:02 | disposition home or self-care (01) ==
LOC: ANHSURGERY 13:12
PROVIDERS: PCP Internal Medicine; Visit Provider Orthopaedic Surgery
DX: M17.11 Unilateral primary osteoarthritis, right knee (principal); Z01.818 Encounter for other preprocedural examination
CPT/HCPCS: 80048; 80307; 82040; 83036; 85025; 85610; 85730; 87641

== ENCOUNTER 2024-12-29 01:42 | Day surgery (SDC) | payer MEDICARE, MEDICAID, SELFPAY ==
--- NOTE | 2024-12-13 13:14 | PC.NURSE ---
Report to the Outpatient Waiting Room, entrance under the green pavilion located off [facility], at time _6 AM on date _12/29/24 . Planned Procedure Time: ____7:30 AM____.? Time changes happen often and if your time is changed the preop area will call you the afternoon before. - You and your visitor will be asked to self-screen and do not enter if you have any COVID symptoms. Please call surgeon if you need to reschedule. - A mask is optional within the hospital at this time. Patients may have clear liquids (water, carbonated beverages, clear teas, apple juice) until 3 hours prior to surgery ( 4:30 AM) with a maximum of 20 ounces. - No food from midnight until time of surgery and no smoking, or chewing tobacco (or any form of nicotine). No chewing gum, candy or mints. - Take only the following medications with a SIP of water on the morning of surgery: _GABAPENTIN DO NOT STOP ANY OF YOUR OTHER PRESCRIPTION MEDICATIONS PRIOR TO SURGERY EXCEPT THE FOLLOWING Hold all vitamins and supplements for 3 days per anesthesiologist.LAST DOSE 12/25/24 Medications to discontinue per physician NONE MAY TAKE TYLENOL IF NEEDED FOR PAIN Please no make-up, nail tanzanian, hairspray, perfume, deodorant, or body powder the day of surgery.? No jewelry (including any body piercings) or valuables the day of surgery, leave them at home.? Please take a shower or bath the night before, or the morning of, surgery with an antibacterial soap.? Wear comfortable, loose fitting clothing.? Children are encouraged to wear pajamas. - Jewelry must be removed prior to entering the operating room.? Rings and piercings that are not removed may be cut off. - The hospital will not accept responsibility for valuables.? - Please leave all valuables, including medications, at home the day of surgery. If you are going home after surgery, a licensed power screwdriver operator must drive you home.? - NO public transportation without another adult if you receive anesthesia. - We recommend that an adult stay with you for 24 hours following discharge. - We also recommend that you do not drive, make important decision, drink alcoholic beverages, or take any drugs that were not prescribed by your health care provider for at least 24 hours after your discharge time. For Pediatric surgeries, we recommend two adults accompany the child home. Follow any additional instructions given to you from your surgeon. Telephone instructions given to __PATIENT and asked if any additional questions and then verbalized understanding. Patient advised to call surgeon office or pre surgery nurse liaison [phone] if any additional questions.
[2024-12-13 13:15] VITALS: BMI 22.6
[2024-12-13 13:51] VITALS: BP 159/87; PULSE 72; RESP 18; TEMP 37.3; O2SAT 100
[2024-12-29] VITALS (9 sets, daily range): BP systolic 125–173; BP diastolic 69–87; PULSE 65–91; RESP 10–20; TEMP 36.5–36.7; O2SAT 96–100; BMI 22.1
--- NOTE | ~2024-12-29 | XR_ITS ---
EXAMINATION: [id number] DATE: 12/29/2024 10:15 INDICATION: Postoperative evaluation following right total knee arthroplasty. TECHNIQUE: Anteroposterior and lateral views of the right knee were obtained. COMPARISON: None. FINDINGS: Right total knee arthroplasty without patellar resurfacing appears well seated and in near anatomic a lignment. No fractures identified. Expected postoperative subcutaneous and intra-articular gas. Smal l heterotopic ossicle along side the medial femoral epicondyle suggesting pleural-based lesion in the setting of chronic medial collateral ligament sprain. IMPRESSION: 1. Right total knee arthroplasty, negative for postoperative purposes. Reviewed, dictated and finalized at location A.
--- OUTSIDE RECORDS SUMMARY | 2024-12-29 01:49 | XMS_ITS | Referral Summary ---
Author Organization [facility] Address [address] [place] [address] Care Team Providers Care Car Cooper Name Role Phone Todd Hill MD Unavailable + Nicolas Hoffman MD Unavailable +1- [phone] Rick Serrato DO Primary Care Provider +1- [phone] Allergies Active Allergy Reactions Criticality Noted Date [...] (03/30/2020): Added automatically from request for surgery [id number] Osteoarthritis of cervical spine 08/22/2014 Overview (08/31/2016): [...] on file Legal Sex Male 7:28 PM SOAP WORKER Gender Identity Not on file Sexual Orientation Not on file Last Filed Vital Signs Vital Sign Reading Time Taken Comments Blood Pressure 130/81 06/07/2020 10:35 AM SOAP WORKER Pulse 91 06/07/2020 10:35 AM SOAP WORKER Temperature 36.6 C (97.9 F) 06/07/2020 10:35 AM SOAP WORKER Respiratory Rate 18 06/07/2020 10:35 AM SOAP WORKER Oxygen Saturation 99% 06/07/2020 10:35 AM SOAP WORKER Inhaled Oxygen Concentration - - Weight 81 kg (178 lb 9.6 oz) 06/07/2020 10:35 AM SOAP WORKER Height 185 cm (6' 0.84) 06/07/2020 10:35 AM SOAP WORKER Body Mass Index 23.67 06/07/2020 10:35 AM SOAP WORKER Plan of Treatment Not on file Medical Devices Implanted Type Area Metal Coater Operator Device Identifier Shelf Expiration Date Model / Serial / Lot Plate Plate N/A: Cervical-Tho racic Spine Insurance [facility] MDCR HMO REF [facility] Address: [facility] [address] [place] [address] IDPA [facility] MDCR HMO REF [facility] MEDIC[facility] Address: [address] [address] [place] [address] IDPA Advance Directives For more information, please contact: [phone] * Full Code (Latest Code Status on File) Date Activated Date Inactivated Comments 04/06/2020 2:13 PM 04/13/2020 11:21 PM Care Teams Car Cooper Relationship Specialty Start Date End Date Rick Serrato DO [address] [place] [address] PCP - General Internal Medicine 05/08/20 Todd Hill MD [address] [place] [address] Referring Physician Gastroenterology 03/27/20 Nicolas Hoffman MD [address] [place] [address] Consulting Physician Colon and Rectal Surgery 04/07/20
--- OUTSIDE RECORDS SUMMARY | 2024-12-29 01:49 | XMS_ITS | Clinical Summary ---
Author Organization [facility] Address [facility] [place] [address] Care Team Providers Care Machine Compositor Name Role Phone Non-Staff, Provider Primary Care [...] on file Legal Sex Male 4:18 PM LEAD PRODUCER Gender Identity Not on file Sexual Orientation Not on file Last Filed Vital Signs Vital Sign Reading Time Taken Comments Blood Pressure 150/98 04/21/2023 9:03 AM LEAD PRODUCER Pulse 81 04/21/2023 9:03 AM LEAD PRODUCER Temperature 37.3 C (99.1 F) 04/21/2023 7:37 AM LEAD PRODUCER Respiratory Rate 18 04/21/2023 7:37 AM LEAD PRODUCER Oxygen Saturation 100% 04/21/2023 9:03 AM LEAD PRODUCER Inhaled Oxygen Concentration - - Weight 84.4 kg (186 lb) 04/11/2023 1:20 PM LEAD PRODUCER Height 182.9 cm (6') 04/11/2023 1:20 PM LEAD PRODUCER Body Mass Index 25.23 04/11/2023 1:20 PM LEAD PRODUCER Plan of Treatment Health Maintenance Due Date [...] this topic Medical Devices Implanted Type Area Generation Engineer Device Identifier Shelf Expiration Date Model / Serial / Lot Tecnis 1-Piece Iol Implanted:Qty: 1 on 04/21/2023 by João Baldwin MD at [facility] 10/22/2025 / [id number] / Insurance MEDICAID [facility] Care Teams Machine Compositor Relationship Specialty Start Date End Date Non-Staff, Provider PCP - General UNKNOWN PHYSICIAN SPECIALTY 04/14/23
--- OUTSIDE RECORDS SUMMARY | 2024-12-29 01:49 | XMS_ITS | Clinical Summary ---
Author Organization [facility] [address]ue [address] Address [address] [place] [address] Care Team Providers Care Final Application Reviewer Name Role Phone Rick Serrato DO Primary [...] Type Department Care Team Description 11/03/2024 Abstract [facility] Oncology and Hematology [address] [place] [id number] Magdaleno Webster MD 11/02/2024 Telephone [facility] Oncology and Hematology [facility] [address] [place] [address] Magdaleno Webster MD Surgical Clearance 10/13/2024 4:30 PM CDT Telephone Check Up [facility] Oncology and Hematology [facility] [address] [place] [address] Magdaleno Webster MD Chronic anemia (Primary Dx); History of colon cancer from Last 3 Months Family History Medical [...] Description 02/21/2025 2:45 PM CDT Office Visit [facility] Oncology and Hematology - [place] [address] [place] [address] [facility] [address] [place] [address] [place] [address] [place] [address] [address] [place] [address] Health Maintenance Due Date Last Done Comments DTAP/TDAP/TD VACCINES (2 - T d or Tdap) 07/01/2023 07/01/2013 ZOSTER VACCINE (2 of 2) 03/12/2024 01/16/2024 INFLUENZA VACCINE (#1) 2024 3, 04/12/2020, 02/26/2018, Additional history exists RSV VACCINE (60+ or ) (1 - 1-dose 75+ series) 09/13/2031 PNEUMOCOCCAL VACCINE 50+ YEARS Completed 01/16/2024 , 02/27/2016 Insurance [place]ICAID [place] [facility] [id number] Care Teams Final Application Reviewer Relationship Specialty Start Date End Date Rick Serrato DO [address] [address] PCP - General Internal Medicine 09/30/23
--- OUTSIDE RECORDS SUMMARY | 2024-12-29 01:49 | XMS_ITS ---
Author Organization [facility] Address [address] [place] [address] Care Team Providers Care Vacuum Metalizer Operator Name Role Phone Todd Hill MD Unavailable + Nicolas Hoffman MD Unavailable +1- [phone] Rick Serrato DO Primary Care Provider +1- [phone] Active Problems Problem Noted Date Diagnosed Date Malignant neoplasm of transverse colon 0 Overview (03/30/2020): Added automatically from request for surgery [id number] Osteoarthritis of cervical spine 08/22/2014 Overview (08/31/2016): [...]
--- OUTSIDE RECORDS SUMMARY | 2024-12-29 01:49 | XMS_ITS | Clinical Summary ---
Author Organization [facility] Address [address] [place] [address] Care Team Providers Care Experimental Worker Name Role Phone Todd Hill MD Unavailable + Nicolas Hoffman MD Unavailable +1- [phone] Rick Serrato DO Primary Care Provider +1- [phone] Allergies Active Allergy Reactions Criticality Noted Date [...] (03/30/2020): Added automatically from request for surgery [id number] Osteoarthritis of cervical spine 08/22/2014 Overview (08/31/2016): [...] on file Legal Sex Male 7:28 PM INDUSTRIAL GAS SERVICER Gender Identity Not on file Sexual Orientation Not on file Obstetrics History Last Filed Vital Signs Vital Sign Reading Time Taken Comments Blood Pressure 130/81 06/07/2020 10:35 AM INDUSTRIAL GAS SERVICER Pulse 91 06/07/2020 10:35 AM INDUSTRIAL GAS SERVICER Temperature 36.6 C (97.9 F) 06/07/2020 10:35 AM INDUSTRIAL GAS SERVICER Respiratory Rate 18 06/07/2020 10:35 AM INDUSTRIAL GAS SERVICER Oxygen Saturation 99% 06/07/2020 10:35 AM INDUSTRIAL GAS SERVICER Inhaled Oxygen Concentration - - Weight 81 kg (178 lb 9.6 oz) 06/07/2020 10:35 AM INDUSTRIAL GAS SERVICER Height 185 cm (6' 0.84) 06/07/2020 10:35 AM INDUSTRIAL GAS SERVICER Body Mass Index 23.67 06/07/2020 10:35 AM INDUSTRIAL GAS SERVICER Plan of Treatment Not on file Medical Devices Implanted Type Area Inspector And Unloader Device Identifier Shelf Expiration Date Model / Serial / Lot Plate Plate N/A: Cervical-Tho racic Spine Insurance UHC MDCR HMO REF [facility] MEDICARE Address: [address] [address] [place] [address] IDPA [facility] MEDIC[facility] Address: [address] [address] [place] [address] IDPA Advance Directives For more information, please contact: [phone] * Full Code (Latest Code Status on File) Date Activated Date Inactivated Comments 04/06/2020 2:13 PM 04/13/2020 11:21 PM Care Teams Experimental Worker Relationship Specialty Start Date End Date Rick Serrato DO [address] [facility] [address] [place] [address] PCP - General Internal Medicine 05/08/20 Todd Hill MD [address] [facility] [address] [place] [address] Referring Physician Gastroenterology 03/27/20 Nicolas Hoffman MD [address] [facility] [address] [place] [address] Consulting Physician Colon and Rectal Surgery 04/07/20
--- OUTSIDE RECORDS SUMMARY | 2024-12-29 01:49 | XMS_ITS | Encounter Summary ---
Author Organization [facility] Address [facility] [place] [address] Care Team Providers Care Wood Mill Supervisor Name Role Phone Non-Staff, Provider Primary Care Provider Bradford castañeda Encounter Details Date Type Department Care Team (Late st Contact Info) Description 06/22/[address] [facility] [facility] [address] [place] [address] João Baldwin MD [address] [facility] [address] [place] [address] Social History Tobacco Use Types Packs/Day Years Used Date Smoking Tobacco: Never Assessed Sex and Gender Information Value Date Recorded Sex Assigned at Not on file Legal Sex Male 4:18 PM ENGINEER RF DEPLOYMENT Gender Identity Not on file Sexual Orientation Not on file documented as of this encounter Plan of Treatment Not on file documented as of this encounter Visit Diagnoses Not on filedocumented in this encounter Care Teams Wood Mill Supervisor Relationship Specialty Start Date End Date Non-Staff, Provider PCP - General UNKNOWN PHYSICIAN SPECIALTY 04/14/23 documented as of this encounter
--- OUTSIDE RECORDS SUMMARY | 2024-12-29 01:49 | XMS_ITS | Continuity of Care Document ---
Author Name [facility] Organization [facility] Care Team Providers Care Brand Designer Name Role Phone [facility] Unavailable Unavailable Problems Combined list of problems from Department of Defense and [facility] Affairs facilities. It does not include entries that were removed or entered in error. Problem Status Onset Date Problem Type Date of Resolution Comments Source Alcohol dependence (SNOMED CT 94806809) Active Condition [facility] Back pain (SNOMED CT 828273944) Active Condition [facility] BACKACHE NOS Active Condition [facility] Carpal Tunnel Syndrome * (ICD-9-CM 354.0) Active Condition [facility] Chronic recurrent major depressive disorder Active Condition [facility] Erectile dysfunction (SNOMED CT 416063777) Active Condition [facility] HLD - Hyperlipidemia (SNOMED CT 22231154) Active Condition [facility] Hyperlipidemia Active Condition [facility] Hypertension (SNOMED CT 20070172) Active Condition [facility] HYPERTENSION NOS Active Condition [facility] 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 Active Condition [facility] Impotence Active Condition [facility] Lumbar spondylosis Active Condition [facility] Pain, Neck Active Condition [facility] Peripheral neuropathy (SNOMED CT 696467814) Active Condition [facility] Tobacco use Active Condition [facility] Tobacco Use Disorder * (ICD-9-CM 305.1) Active Condition [facility] Unspecified disorder of male genital organs (ICD-9-CM 608.9) Active Condition [facility] Diagnosis: ICD-10-CM E83.119 Hemochromatosis, unspecified Active Diagnosis [facility] Diagnosis: ICD-10-CM 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 facilities.Medications provided include 1) outpatient medications from the last 15 months, and 2) patient-reported medications. Medication Details Route Status Patient Instructions Prescription Expires Prescription Number Last Dispense Date Ordering Provider Order Date Order Qty Source ATORVASTATI N TAB TAKE BY MOUTH EVERY EVENING ORAL ACTIVE SHAUNA, LOR A 2023 [facility] GABAPENTIN 400MG CAP TAKE ONE CAPSULE BY MOUTH AT BEDTIME FOR PAIN ORAL ACTIVE 01/16/2025 [id number] SHAUNA, LOR A 2023 90 [facility] GARLIC OIL CAP,ORAL TAKE BY MOUTH EVERY MORNING ORAL ACTIVE FIROZVI,A ROXANNE 2005 [facility] LOPERAMIDE HCL 2MG CAP TAKE ONE CAPSULE BY MOUTH FOUR TIMES A DAY NEEDED FOR DIARRHEA ORAL ACTIVE 01/16/2025 [id number] SHAUNA, LOR A 2023 120 [facility] [place]AN POTASSIUM 100MG TAB TAKE ONE TABLET BY MOUTH ONCE A DAY ORAL ACTIVE SHAUNA, LOR A 2023 [facility] SILDENAFIL CITRATE 100MG TAB TAKE ONE TABLET BY MOUTH ONE HOUR PRIOR TO SEXUAL ACTIVITY FOR ERECTILE DYSFUNCT ION NEEDED - LIMIT 6 DOSES PER 30 DAYS ORAL 04/15/2024 [id number] SHAUNA, LOR A [address] [...] drug (finding) Facial swelling MILD active 1 [facility] Immunizations Combined list of available immunizations from the Department of Defense and Veterans Affairs facilities. Immunization Series Date Given Administered By Site Reaction Lot Number CVX Code Drug Chief Passenger Ship Steward/Stewardess Status Comments Source PNEUMOCOCCAL CONJUGATE PCV20, POLYSACCHARID E [id number] CONJUGATE, ADJUVANT, PF 2023 PAT SINGH D LEFT DELTO ID [id number] 216 complet ed [facility]MIN[facility]E [facility] AT [facility] ZOSTER RECOMBINANT 1 2023 PAT SINGH D RIGHT DELTO ID [id number] 187 complet ed [facility] AT [facility] N INFLUENZA, HIGH-DOSE, QUADRIVALENT 2022 GAGANDEEP [place] LEFT DELTO ID [id number] 197 complet ed [facility]MIN[facility] AT [facility] N INFLUENZA, INJECTABLE, QUADRIVALENT, PRESERVATIVE FREE 2 2019 150 complet ed HISTORICA L INFORMATI ON - FROM OTHER [facility] N INFLUENZA, INJECTABLE, QUADRIVALENT, PRESERVATIVE FREE 2017 150 complet ed [facility] INFLUENZA, UNSPECIFIED FORMULATION 2016 88 complet ed [facility] PNEUMOCOCCAL POLYSACCHARID E [id number] 2015 33 complet ed [facility] INFLUENZA, UNSPECIFIED FORMULATION 2015 88 complet ed [facility] INFLUENZA, UNSPECIFIED FORMULATION 2015 88 complet ed [facility] N INFLUENZA, UNSPECIFIED FORMULATION 2014 88 complet ed [facility] DIVISIO N INFLUENZA, UNSPECIFIED FORMULATION 2013 88 complet ed [facility] N TDAP 2013 115 complet ed Right Deltoid [facility] N INFLUENZA, UNSPECIFIED FORMULATION 2013 88 complet ed [facility] DIVISIO N INFLUENZA, UNSPECIFIED FORMULATION 2013 88 complet ed [facility] N INFLUENZA, SEASONAL, INJECTABLE 1 2012 141 complet ed HISTORICA L INFORMATI ON - FROM OTHER REGISTRY, [facility] N INFLUENZA, UNSPECIFIED FORMULATION 2011 88 complet ed [facility] N INFLUENZA, UNSPECIFIED FORMULATION 2010 88 complet ed [facility] N INFLUENZA, UNSPECIFIED FORMULATION 2009 88 complet ed [facility] N INFLUENZA, UNSPECIFIED FORMULATION 2008 88 complet ed [facility] INFLUENZA, UNSPECIFIED FORMULATION 2007 88 complet ed [facility] INFLUENZA (HISTORICAL) 1997 SARI AGUILAR 88 complet ed [facility] INFLUENZA (HISTORICAL) 1996 SARI AGUILAR 88 complet ed [facility] N Results Combined list [...] Jan 15, 2024 03:44 PM Reporting Lab: [facility] [address] [facility] [address] Performing Lab: [facility] [address] [facility] [address] [facility] IRON/TIBC PROFILE IRON BINDING CAPACITY [MASS/VOLUM E] IN SERUM OR PLASMA 308 ug/dL 250 - 450 02/11 Specimen Type: SERUM No comment entered. Ordering Provider: DANIEL SMILEY Report Released Date/Time: Jan 15, 2024 03:44 PM Reporting Lab: [address] [address] Performing Lab: [address] [address] [facility] IRON/TIBC PROFILE TRANSFERRIN [MASS/VOLUM E] IN SERUM OR PLASMA 246 mg/dL 163 - 344 02/11 Specimen Type: SERUM No comment entered. Ordering Provider: DANIEL SMILEY Report Released Date/Time: Jan 15, 2024 03:44 PM Reporting Lab: [address] [address] Performing Lab: [address] [address] [facility] IRON/TIBC PROFILE IRON SATURATION [MASS FRACTION] IN SERUM OR PLASMA 37 20 - 50 02/11 Specimen Type: SERUM No comment entered. Ordering Provider: DANIEL SMILEY Report Released Date/Time: Jan 15, 2024 03:44 PM Reporting Lab: [address] [address] Performing Lab: [address] [address] [facility] IRON/TIBC PROFILE IRON [MASS/VOLUM E] IN SERUM OR PLASMA 115 ug/dL 65 - 175 02/11 Specimen Type: SERUM No comment entered. Ordering Provider: DANIEL SMILEY Report Released Date/Time: Jan 15, 2024 03:44 PM Reporting Lab: [address] [address] Performing Lab: [address] [address] [facility] LIPID PANEL (STL) CHOLESTEROL [MASS/VOLUM E] IN SERUM OR PLASMA 205 mg/dL 0 - 200 02/11 H Specimen Type: PLASMA Comment: No hemolysis noted. Ordering Provider: DESTIN VILLATORO Report Released Date/Time: Jan 16, 2024 08:36 AM Reporting Lab: [facility] [address] [facility] [address] Performing Lab: [facility] [address] [place] [address] [facility] LIPID PANEL (STL) TRIGLYCERID E [MASS/VOLUM E] IN SERUM OR PLASMA 73 mg/dL 0 - 150 02/11 Specimen Type: PLASMA Comment: No hemolysis noted. Ordering Provider: DESTIN VILLATORO Report Released Date/Time: Jan 16, 2024 08:36 AM Reporting Lab: [address] [address] Performing Lab: [address] [address] [facility] LIPID PANEL (STL) CHOLESTEROL IN LDL [MASS/VOLUM E] IN SERUM OR PLASMA BY CALCULATION 116 mg/dL 02/11 Specimen Type: PLASMA Comment: No hemolysis noted. Ordering Provider: DESTIN VILLATORO Report Released Date/Time: Jan 16, 2024 08:36 AM Reporting Lab: [address] [address] Performing Lab: [address] [address] [facility] LIPID PANEL (STL) CHOLESTEROL IN HDL [MASS/VOLUM E] IN SERUM OR PLASMA 74 mg/dL 40 02/11 Specimen Type: PLASMA Comment: No hemolysis noted. Ordering Provider: DESTIN VILLATORO Report Released Date/Time: Jan 16, 2024 08:36 AM Reporting Lab: [address] [address] Performing Lab: [address] [address] [facility] PROST. SPECIFIC AG.(PB-ST L) PROSTATE SPECIFIC AG [...] Jan 16, 2024 08:36 AM Reporting Lab: [place] [address] [place] [address] Performing Lab: [address] HGA1C HEMOGLOBIN A1C/HEMOGLO BIN.TOTAL IN BLOOD 5.3 4.0 - 6.0 02/11 Specimen Type: BLOOD No comment entered. Ordering Provider: DESTIN VILLATORO Report Released Date/Time: Jan 16, 2024 08:36 AM Reporting Lab: [place] [address] [place] [phone] Performing Lab: [place] [address] [facility] [phone] [place] [address] COMPREHEN SIVE METABOLIC PANEL CREATININE [MASS/VOLUM E] IN SERUM OR PLASMA 1.12 mg/dL 0.7 - 1.3 02/11 Specimen Type: PLASMA Comment: No hemolysis noted. Ordering Provider: DANIEL SMILEY Report Released Date/Time: Jan 15, 2024 03:44 PM Reporting Lab: [address] [address] Performing Lab: [address] [phone] [place] [address] COMPREHEN SIVE METABOLIC PANEL UREA NITROGEN [MASS/VOLUM E] IN SERUM OR PLASMA 12.7 mg/dL 9.0 - 25.0 02/11 Specimen Type: PLASMA Comment: No hemolysis noted. Ordering Provider: DANIEL SMILEY Report Released Date/Time: Jan 15, 2024 03:44 PM Reporting Lab: [place] [address] [facility] [address] Performing Lab: [place] [address] [facility] [address] [facility] COMPREHEN SIVE METABOLIC PANEL GLUCOSE [MASS/VOLUM E] IN SERUM OR PLASMA 112 mg/dL 72 - 99 02/11 H Specimen Type: PLASMA Comment: No hemolysis noted. Ordering Provider: DANIEL SMILEY Report Released Date/Time: Jan 15, 2024 03:44 PM Reporting Lab: [place] [address] [facility] [address] Performing Lab: [place] [address] [facility] [address] [facility] COMPREHEN SIVE METABOLIC PANEL SODIUM [MOLES/VOLU ME] IN SERUM OR PLASMA 132 meq/L 136 - 145 02/11 L Specimen Type: PLASMA Comment: No hemolysis noted. Ordering Provider: DANIEL SMILEY Report Released Date/Time: Jan 15, 2024 03:44 PM Reporting Lab: [place] [address] [facility] [address] Performing Lab: [place] [address] [facility] [address] [facility] COMPREHEN SIVE METABOLIC PANEL POTASSIUM [MOLES/VOLU ME] IN SERUM OR PLASMA 4.9 meq/L 3.5 - 5 02/11 Specimen Type: PLASMA Comment: No hemolysis noted. Ordering Provider: DANIEL SMILEY Report Released Date/Time: Jan 15, 2024 03:44 PM Reporting Lab: [place] [address] [facility] [address] Performing Lab: [address] [address] [facility] COMPREHEN SIVE METABOLIC PANEL CHLORIDE [MOLES/VOLU ME] IN SERUM OR PLASMA 99 meq/L 98 - 107 02/11 Specimen Type: PLASMA Comment: No hemolysis noted. Ordering Provider: DANIEL SMILEY Report Released Date/Time: Jan 15, 2024 03:44 PM Reporting Lab: [address] [address] Performing Lab: [place] [address] [facility] [address] [facility] COMPREHEN SIVE METABOLIC PANEL CARBON DIOXIDE, TOTAL [MOLES/VOLU ME] IN SERUM OR PLASMA 26 meq/L 22 - 31 02/11 Specimen Type: PLASMA Comment: No hemolysis noted. Ordering Provider: DANIEL SMILEY Report Released Date/Time: Jan 15, 2024 03:44 PM Reporting Lab: [address] [address] Performing Lab: [address] [phone] [place] [address] COMPREHEN SIVE METABOLIC PANEL CALCIUM [MASS/VOLUM E] IN SERUM OR PLASMA 9.8 mg/dL 8.4 - 10.4 02/11 Specimen Type: PLASMA Comment: No hemolysis noted. Ordering Provider: DANIEL SMILEY Report Released Date/Time: Jan 15, 2024 03:44 PM Reporting Lab: [place] [address] [facility] [address] Performing Lab: [place] [address] [facility] [address] [facility] COMPREHEN SIVE METABOLIC PANEL PROTEIN [MASS/VOLUM E] IN SERUM OR PLASMA 7.8 g/dL 6 - 8.6 02/11 Specimen Type: PLASMA Comment: No hemolysis noted. Ordering Provider: DANIEL SMILEY Report Released Date/Time: Jan 15, 2024 03:44 PM Reporting Lab: [address] [address] Performing Lab: [address] [address] [facility] COMPREHEN SIVE METABOLIC PANEL ALBUMIN [MASS/VOLUM E] IN SERUM OR PLASMA 4.6 g/dL 3.4 - 5 09/19 /2024 Specimen Type: PLASMA Comment: No hemolysis noted. Ordering Provider: DANIEL SMILEY Report Released Date/Time: Jan 15, 2024 03:44 PM Reporting Lab: [address] [address] Performing Lab: [place] [address] [facility] [address] [facility] COMPREHEN SIVE METABOLIC PANEL BILIRUBIN.T OTAL [MASS/VOLUM E] IN SERUM OR PLASMA 0.7 mg/dL 0.2 - 1.2 02/11 Specimen Type: PLASMA Comment: No hemolysis noted. Ordering Provider: DANIEL SMILEY Report Released Date/Time: Jan 15, 2024 03:44 PM Reporting Lab: [address] [address] Performing Lab: [address] [address] [facility] COMPREHEN SIVE METABOLIC PANEL ALKALINE PHOSPHATASE [ENZYMATIC ACTIVITY/VO LUME] IN SERUM OR PLASMA 117 U/L 40 - 150 02/11 Specimen Type: PLASMA Comment: No hemolysis noted. Ordering Provider: DANIEL SMILEY Report Released Date/Time: Jan 15, 2024 03:44 PM Reporting Lab: [address] [address] Performing Lab: [address] [address] [facility] COMPREHEN SIVE METABOLIC PANEL ASPARTATE AMINOTRANSF ERASE [ENZYMATIC ACTIVITY/VO LUME] IN SERUM OR PLASMA 25 U/L 5 - 34 02/11 Specimen Type: PLASMA Comment: No hemolysis noted. Ordering Provider: DANIEL SMILEY Report Released Date/Time: Jan 15, 2024 03:44 PM Reporting Lab: [address] [address] Performing Lab: [address] [address] [facility] COMPREHEN SIVE METABOLIC PANEL ALANINE AMINOTRANSF ERASE [ENZYMATIC ACTIVITY/VO LUME] IN SERUM OR PLASMA 14 U/L 8 - 40 02/11 Specimen Type: PLASMA Comment: No hemolysis noted. Ordering Provider: DANIEL SMILEY Report Released Date/Time: Jan 15, 2024 03:44 PM Reporting Lab: [address] [address] Performing Lab: [place] [phone] COMPREHEN SIVE METABOLIC PANEL GLOMERULAR FILTRATION RATE/1.73 SQ M.PREDICTED [VOLUME RATE/AREA] IN SERUM, PLASMA OR BLOOD BY CREATININE- BASED FORMULA (CKD-EPI 2020) 72.0 60 02/11 Specimen Type: PLASMA Comment: No hemolysis noted. Ordering Provider: DANIEL SMILEY Report Released Date/Time: Jan 15, 2024 03:44 PM Reporting Lab: [address] [address] Performing Lab: [address] [address] [place] [address] CBC LEUKOCYTES [#/VOLUME] IN BLOOD BY AUTOMATED COUNT 7.2 10*3/u L 3.6 - 11.2 02/11 Specimen Type: BLOOD No comment entered. Ordering Provider: DANIEL SMILEY Report Released Date/Time: Jan 15, 2024 03:44 PM Reporting Lab: [address] [address] Performing Lab: [address] [phone] [place] [address] CBC ERYTHROCYTE S [#/VOLUME] IN BLOOD BY AUTOMATED COUNT 3.79 10*6/u L 4.10 - 5.70 02/11 L Specimen Type: BLOOD No comment entered. Ordering Provider: DANIEL SMILEY Report Released Date/Time: Jan 15, 2024 03:44 PM Reporting Lab: [address] [place] [address] Performing Lab: [address] [address] [facility] CBC HEMOGLOBIN [MASS/VOLUM E] IN BLOOD 12.2 g/dL 13.1 - 16.8 02/11 L Specimen Type: BLOOD No comment entered. Ordering Provider: DANIEL SMILEY Report Released Date/Time: Jan 15, 2024 03:44 PM Reporting Lab: [address] [address] Performing Lab: [address] [address] [facility] CBC HEMATOCRIT [VOLUME FRACTION] OF BLOOD 36.7 38.2 - 48.4 02/11 L Specimen Type: BLOOD No comment entered. Ordering Provider: DANIEL SMILEY Report Released Date/Time: Jan 15, 2024 03:44 PM Reporting Lab: [address] [address] Performing Lab: [address] [address] [facility] CBC MCV [ENTITIC VOLUME] BY AUTOMATED COUNT 96.8 fL 80.0 - 100.0 02/11 Specimen Type: BLOOD No comment entered. Ordering Provider: DANIEL SMILEY Report Released Date/Time: Jan 15, 2024 03:44 PM Reporting Lab: [address] [address] Performing Lab: [address] [address] [facility] CBC MCH [ENTITIC MASS] BY AUTOMATED COUNT 32.2 pg 27.0 - 34.0 02/11 Specimen Type: BLOOD No comment entered. Ordering Provider: DANIEL SMILEY Report Released Date/Time: Jan 15, 2024 03:44 PM Reporting Lab: [address] [address] Performing Lab: [place] [address] [facility] [address] [facility] CBC MCHC [MASS/VOLUM E] BY AUTOMATED COUNT 33.2 g/dL 33.0 - 36.0 02/11 Specimen Type: BLOOD No comment entered. Ordering Provider: DANIEL SMILEY Report Released Date/Time: Jan 15, 2024 03:44 PM Reporting Lab: [address] [address] Performing Lab: [address] [phone] [place] [address] CBC PLATELETS [#/VOLUME] IN BLOOD BY AUTOMATED COUNT 208 10*3/u L 150 - 400 02/11 Specimen Type: BLOOD No comment entered. Ordering Provider: DANIEL SMILEY Report Released Date/Time: Jan 15, 2024 03:44 PM Reporting Lab: [address] [address] Performing Lab: [address] [address] [facility] CBC PLATELET MEAN VOLUME [ENTITIC VOLUME] IN BLOOD BY AUTOMATED COUNT 9.6 fL 7.5 - 11.2 02/11 Specimen Type: BLOOD No comment entered. Ordering Provider: DANIEL SMILEY Report Released Date/Time: Jan 15, 2024 03:44 PM Reporting Lab: [address] [address] Performing Lab: [address] [address] [facility] CBC ERYTHROCYTE DISTRIBUTIO N WIDTH [RATIO] BY AUTOMATED COUNT 12.9 11.8 - 15.1 02/11 Specimen Type: BLOOD No comment entered. Ordering Provider: DANIEL SMILEY Report Released Date/Time: Jan 15, 2024 03:44 PM Reporting Lab: [address] [address] Performing Lab: [facility] [address] [facility] [address] [facility] CBC LYMPHOCYTES /100 LEUKOCYTES IN BLOOD BY AUTOMATED COUNT 13 02/11 Specimen Type: BLOOD No comment entered. Ordering Provider: DANIEL SMILEY Report Released Date/Time: Jan 15, 2024 03:44 PM Reporting Lab: [facility] [address] [facility] [address] Performing Lab: [facility] [address] [facility] [address] [facility] CBC MONOCYTES/1 00 LEUKOCYTES IN BLOOD BY AUTOMATED COUNT 11 02/11 Specimen Type: BLOOD No comment entered. Ordering Provider: DANIEL SMILEY Report Released Date/Time: Jan 15, 2024 03:44 PM Reporting Lab: [facility] [address] [facility] [address] Performing Lab: [facility] [address] [facility] [address] [facility] CBC NEUTROPHILS /100 LEUKOCYTES IN BLOOD BY AUTOMATED COUNT 73 02/11 Specimen Type: BLOOD No comment entered. Ordering Provider: DANIEL SMILEY Report Released Date/Time: Jan 15, 2024 03:44 PM Reporting Lab: [facility] [address] [facility] [address] Performing Lab: [facility] [address] [facility] [address] [facility] CBC EOSINOPHILS /100 LEUKOCYTES IN BLOOD BY AUTOMATED COUNT 3 02/11 Specimen Type: BLOOD No comment entered. Ordering Provider: DANIEL SMILEY Report Released Date/Time: Jan 15, 2024 03:44 PM Reporting Lab: [facility] [address] [facility] [address] Performing Lab: [facility] [address] [facility] [address] [facility] CBC BASOPHILS/1 00 LEUKOCYTES IN BLOOD BY AUTOMATED COUNT 1 02/11 Specimen Type: BLOOD No comment entered. Ordering Provider: DANIEL SMILEY Report Released Date/Time: Jan 15, 2024 03:44 PM Reporting Lab: [address] [address] Performing Lab: [address] [address] [facility] CBC LYMPHOCYTES [#/VOLUME] IN BLOOD BY AUTOMATED COUNT 0.96 10*3/u L 0.77 - 4.50 02/11 Specimen Type: BLOOD No comment entered. Ordering Provider: DANIEL SMILEY Report Released Date/Time: Jan 15, 2024 03:44 PM Reporting Lab: [address] [address] Performing Lab: [address] [address] [facility] CBC MONOCYTES [#/VOLUME] IN BLOOD BY AUTOMATED COUNT 0.75 10*3/u L 0.19 - 0.80 02/11 Specimen Type: BLOOD No comment entered. Ordering Provider: DANIEL SMILEY Report Released Date/Time: Jan 15, 2024 03:44 PM Reporting Lab: [address] [address] Performing Lab: [address] [address] [facility] CBC NEUTROPHILS [#/VOLUME] IN BLOOD BY AUTOMATED COUNT 5.19 10*3/u L 2.10 - 8.00 02/11 Specimen Type: BLOOD No comment entered. Ordering Provider: DANIEL SMILEY Report Released Date/Time: Jan 15, 2024 03:44 PM Reporting Lab: [address] [address] Performing Lab: [address] [address] [facility] CBC EOSINOPHILS [#/VOLUME] IN BLOOD BY AUTOMATED COUNT 0.18 10*3/u L 0.00 - 0.60 02/11 Specimen Type: BLOOD No comment entered. Ordering Provider: DANIEL SMILEY Report Released Date/Time: Jan 15, 2024 03:44 PM Reporting Lab: [address] [address] Performing Lab: [address] [phone] [place] [address] CBC BASOPHILS [#/VOLUME] IN BLOOD BY AUTOMATED COUNT 0.05 10*3/u L 0.00 - 0.20 02/11 Specimen Type: BLOOD No comment entered. Ordering Provider: DANIEL SMILEY Report Released Date/Time: Jan 15, 2024 03:44 PM Reporting Lab: [address] [address] Performing Lab: [address] [phone] [place] [address] I-STAT, CREAT ([facility]) CREATININE [MASS/VOLUM E] IN BLOOD 1.2 mg/dL 0.7 - 1.3 02/11 Specimen Type: BLOOD Comment: Test Performed by: [id number] Meter #: [id number] Ordering Provider: DESTIN VILLATORO Report Released Date/Time: Feb 12, 2024 08:10 AM Reporting Lab: [address] [id number] Performing Lab: [id number] [place] [address] IRON/TIBC PROFILE IRON BINDING CAPACITY [MASS/VOLUM E] IN SERUM OR PLASMA 316 ug/dL 250 - 450 12/31 Specimen Type: SERUM No comment entered. Ordering Provider: DANIEL SMILEY Report Released Date/Time: Jan 01, 2024 11:17 AM Reporting Lab: [address] [address] Performing Lab: [place] [id number] [facility] IRON/TIBC PROFILE TRANSFERRIN [MASS/VOLUM E] IN SERUM OR PLASMA 253 mg/dL 163 - 344 12/31 Specimen Type: SERUM No comment entered. Ordering Provider: DANIEL SMILEY Report Released Date/Time: Jan 01, 2024 11:17 AM Reporting Lab: [address] [address] Performing Lab: [address] [address] [facility] IRON/TIBC PROFILE IRON SATURATION [MASS FRACTION] IN SERUM OR PLASMA 76 20 - 50 12/31 H Specimen Type: SERUM No comment entered. Ordering Provider: DANIEL SMILEY Report Released Date/Time: Jan 01, 2024 11:17 AM Reporting Lab: [address] [address] Performing Lab: [address] [address] [facility] IRON/TIBC PROFILE IRON [MASS/VOLUM E] IN SERUM OR PLASMA 239 ug/dL 65 - 175 12/31 H Specimen Type: SERUM No comment entered. Ordering Provider: DANIEL SMILEY Report Released Date/Time: Jan 01, 2024 11:17 AM Reporting Lab: [address] [address] Performing Lab: [address] [address] [facility] FERRITIN FERRITIN [MASS/VOLUM E] IN SERUM OR PLASMA 507.49 ng/mL 22 - 275 12/31 H Specimen Type: SERUM No comment entered. Ordering Provider: DANIEL SMILEY Report Released Date/Time: Jan 01, 2024 11:17 AM Reporting Lab: [address] [address] Performing Lab: [address] [address] [facility] Vital Signs Combined list of inpatient and outpatient Vital Signs from Department of Defense and Veterans Affairs, ranging from 12 months to all on record, depending upon the facility. Vital Sign Value Date Comments Source SYSTOLIC BLOOD PRESSURE 147 02/12/2024 09:00:37 [facility] DIASTOLIC BLOOD PRESSURE 89 02/12/2024 09:00:37 [facility] PULSE OXIMETRY 99 02/12/2024 09:00:37 Perry Schilling [facility] WEIGHT 170 02/12/2024 09:00:37 [facility] BMI 22 kg/m2 02/12/2024 09:00:37 [facility] TEMPERATURE 98.1 02/12/2024 09:00:37 [facility] PULSE 97 02/12/2024 09:00:37 [facility] RESPIRATION 18 02/12/2024 09:00:37 [facility] SYSTOLIC BLOOD PRESSURE 155 01/16/2024 08:20:03 [facility] DIASTOLIC BLOOD PRESSURE 84 01/16/2024 08:20:03 [facility] PULSE OXIMETRY 99 01/16/2024 08:20:03 [facility] WEIGHT 168.5 01/16/2024 08:20:03 [facility] BMI 22 kg/m2 01/16/2024 08:20:03 [facility] PAIN 0 01/16/2024 08:20:03 [facility] HEIGHT 73 01/16/2024 08:20:03 [facility] TEMPERATURE 98.9 01/16/2024 08:20:03 [facility] PULSE 97 01/16/2024 08:20:03 [facility] RESPIRATION 18 01/16/2024 08:20:03 [facility] SYSTOLIC BLOOD PRESSURE 149 01/01/2024 11:34:37 [facility] DIASTOLIC BLOOD PRESSURE 83 01/01/2024 11:34:37 [facility] PULSE OXIMETRY 96 01/01/2024 11:34:37 [facility] WEIGHT 165.8 01/01/2024 11:34:37 [facility] BMI 23 kg/m2 01/01/2024 11:34:37 [facility] TEMPERATURE 97.6 01/01/2024 11:34:37 [facility] PULSE 120 01/01/2024 11:34:37 [facility] RESPIRATION 20 01/01/2024 11:34:37 [facility] Encounters Combined list of: 1) Encounters from Department of [facility] Affairs facilities going backup to the last 18 months, not all [place] inpatient encounters are included; 2) Encounters from the Department of [facility] facilities going backup to 280 months. Location Location Details Encounter Type Encounter Number Reason For Visit Attending Provider ADM Date DC Date Status Disposition Source [facility] Outpatient Encounter [id number] 06/18 [facility] N [facility] Outpatient Encounter [id number] 11/27 [facility] N [facility] OFFICE O/P EST MOD 30 MIN [id number] Diagnos is: ICD-10- CM C18.9 Maligna nt neoplas m of colon, unspeci fied JORGE SMILEY SE 12/31 [facility] N [facility] Outpatient Encounter [id number] 12/31 [facility] N [facility] Outpatient Encounter [id number] 12/31 [facility] Outpatient Encounter [id number] Diagnos is: ICD-10- CM E83.119 Hemochr omatosi s, unspeci JORGE Esteves SE 01/14 [facility] Outpatient Encounter [id number] DAVINA SINGH 01/14 [facility] OFFICE O/P EST MOD 30 MIN [id number] Diagnos is: ICD-10- CM I10 Essenti al (primar y) hyperte nsion Sony VILLATORO 01/15 [facility] PHLEBOTOMY [id number] Diagnos is: ICD-10- CM E83.110 Heredit yareli hemochr omatosi s COOKIE SOLITARIO 01/15 [facility] OFFICE O/P EST HI 40 MIN [id number] Diagnos is: ICD-10- CM 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 Social History Type Response Date Comment Sourc e [facility]/16/2024 [facility] History of tobacco use VA-TOBACCO FORMER USER 01/16/2024 [facility] History of tobacco use VA-TOBACCO FORMER USER 04/17/2022 [facility] History of tobacco use VA-TOBACCO FORMER USER 08/31/2020 [facility] History of tobacco use [place]-TOBACCO FORMER USER 08/27/2019 [facility] History of tobacco use VA-TOBACCO NEVER USED 05/11/2018 [facility] History of tobacco use QUIT TOBACCO >7 Y EARS AGO 04/02/2017 [facility] History of tobacco use QUIT TOBACCO >7 Y EARS AGO 01/22/2017 [facility] History of tobacco use LIFETIME NON-USER OF TOBACCO 10/02/2016 [facility] History of tobacco use QUIT TOBACCO >7 Y EARS AGO 10/25/2015 [facility] History of tobacco use QUIT TOBACCO >7 Y EARS AGO 08/03/2014 [facility] History of tobacco use QUIT TOBACCO >7 Y EARS AGO 12/24/2012 [facility] History of tobacco use QUIT TOBACCO >7 Y EARS AGO 03/12/2012 [facility] History of tobacco use QUIT TOBACCO >7 Y EARS AGO 04/26/2009 [facility] History of tobacco use QUIT TOBACCO >12 MO and <7 YRS AGO 06/22/2008 [facility] History of tobacco use QUIT TOBACCO >12 MO and <7 YRS AGO 07/22/2007 [facility] History of tobacco use CURRENT NON-TOBAC CO USER-HX OF USE 02/19/2006 [facility] History of tobacco use CURRENT NON-TOBAC CO USER-HX OF USE 05/01/2005 [facility] History of tobacco use CURRENT NON-TOBAC CO USER-HX OF USE 10/17/2004 [facility] History of tobacco use CURRENT NON-TOBAC CO USER-HX OF USE 09/21/2003 [facility] History of tobacco use CURRENT TOBACCO USER 08/10/2003 [facility] History of tobacco use CURRENT TOBACCO USER 11/10/2002 [facility] History of tobacco use CURRENT TOBACCO USER 10/13/2002 [facility] History of tobacco use CURRENT TOBACCO USER 06/09/2002 [facility] History of tobacco use CURRENT TOBACCO USER 12/10/2000 [facility] History of tobacco use CURRENT TOBACCO USER 09/03/2000 [facility]
[2024-12-29] MEDS: ACETAMINOPHEN 500 MG TABLET 1000 MG PO (06:43)
[2024-12-29] MEDS: TRANEXAMIC ACID 1,000MG/ISO100 1,000 MG/100 ML BAG 200 MG IVPB (07:00)
[2024-12-29 07:15] LABS: Sodium 130 mmol/L (137-145)
--- NOTE | 2024-12-29 07:20 | WPDHPUPDATE1 ---
History and Physical Update Update Date/Time: 12/29/24 07:20 History and Physical has been reviewed, including an updated exam of the patient. There are NO changes in the patient's condition. Risks, benefits, and alternatives have been discussed and questions answered. Patient agrees to proceed with procedure.
--- NOTE | 2024-12-29 07:22 | WPDANESEPPF ---
Anes - Initial Pre Proc Eval Procedure: Operation Date: 12/29/24 07:30 Proposed Procedures p Right Total Knee Arthroplasty - Yamil More MD Date/Time: 12/29/24 07:22 Surgeon: Yamil More MD Pre Op Diagnosis: right knee oa Patient Data Age: 69 Gender: M Height: 1.85 m Weight: 76.3 kg Last Vital Signs Temp 36.7 C 12/29/24 06:00 Pulse 66 12/29/24 06:00 Resp 16 12/29/24 06:00 BP 173/74 H 12/29/24 06:00 Pulse Ox 99 12/29/24 06:00 O2 Del Method Room Air 12/29/24 06:00 Allergies Allergy/AdvReac Type Severity Reaction Status Date / Time lisinopril Allergy Unknown Swelling Verified 12/16/24 09:50 of Lip/Tongue/Throat Home Medications ?Medication ?Instructions ?Recorded ?Confirmed ?Type Vitamin B-12 1 tablet PO DAILY 07/14/19 12/16/24 History garlic 500 mg capsule 500 mg PO DAILY 02/25/23 12/16/24 History losartan 100 mg tablet 100 mg PO DAILY #90 tabs 08/05/24 12/16/24 Rx loperamide 2 mg tablet (Imodium 2 mg PO Q6H PRN loose stool #180 09/20/24 12/16/24 Rx A-D) tabs multivitamin (Multiple Vitamins 1 tablet PO DAILY 09/20/24 12/16/24 History tablet) gabapentin 300 mg capsule 300 mg PO BID #180 caps 12/08/24 12/16/24 Rx acetaminophen 500 mg tablet 1,000 mg PO Q6H PRN pain 12/13/24 12/16/24 History (Acetaminophen Extra Strength) chlorhexidine gluconate 4 % 1 applic topical ONCE #237 mL 12/16/24 12/16/24 Rx topical liquid (Hibiclens) Laboratory Tests 12/29/24 06:47 Sodium 130 L mmol/L (137-145) Blood Type Pending Antibody Screen Pending Patient hx anesthesia problems: none Family hx anesthesia problems: none Results Review: All pre-operative results and documents have been reviewed as part of the pre-operative evaluation. [facility] Past Medical History Medical History Other fatigue Degenerative joint disease of knee Hemarthrosis of knee Right knee pain Diverticula of colon Chronic diarrhea History of colon cancer Impingement of right shoulder Rotator cuff tear, right Hyperlipidemia Screening PSA (prostate specific antigen) Screening for lipid disorders Screening for endocrine disorder Neuropathy Malignant neoplasm of transverse colon Laceration Hospital discharge follow-up Near syncope Hyponatremia Elevated d-dimer Colon cancer Mass of colon Alcohol abuse Alkaline phosphatase elevation Anxiety Degenerative arthritis of right shoulder region Labral tear of long head of biceps tendon Influenza A Insomnia Arthritis Chronic neck and back pain Hypertension Surgical History Surgical History S/P right hemicolectomy History of partial surgical removal of colon H/O shoulder surgery Status post spinal disc removal Low back disc removed 1996 H/O neck surgery Plate and screws: 2004 Family History Family History Mother Kidney disease Other Arthritis Social History Social History Smoking packs per day: 2 Smoking cigarettes per day: 40.0 Years smoked: 35 Smoking pack-years: 70.00 Smoking status: Former smoker Tobacco type: cigarettes Smoking end date: 05/26/95 Additional smoking assessment comments: DENIES ANY FORM OF TOBACCO USE Alcohol intake: current Drinks per week: 7 Alcohol use details: 1 beer a day Substance use: current Substance use type: marijuana Other substance usage details: Occasional use Last use: 12/12/24 Do You Feel Safe in your Home?: Yes Lack of Transportation: No Lack of Food: Never True Current Housing: I Have Housing Concerned About Future Housing: No Difficulty Paying Gas/Electric Bills: No Difficulty Paying for Meds: No Currently Unemployed: No Education: Trade/Vocational Certificate Difficulty w/ Childcare or Family Care: No Living arrangements: alone Spiritual care concerns: No Anes - Eval Final PreProcedure Day of Procedure 12/29/24 07:22 Patient weight: normal Heart: regular rate and rhythm Lungs: decreased breath sounds Airway: Mallampati scale class II Neurological: alert and oriented Last oral intake: >/= 8 hours ASA classification: III Emergent: no Anesthetic plan: proceed Anesthesia type and monitoring: general LMA and standard monitoring Results Review: All pre-operative results and documents have been reviewed as part of the pre-operative evaluation. Informed Consent: The patient's anesthetic plan and its attendant risks and benefits were discussed with the patient/family/POA. Questions were solicited and answers provided to the satisfaction of the patient/family/POA.
[2024-12-29] MEDS: ceFAZolin 2 GM in SODIUM CHLORIDE 0.9% IV 50 ML 100 ML IVPB (07:27)
[2024-12-29] MEDS: SODIUM CHLORIDE 0.9% IV 37.7 ML, MORPHINE SULFATE INJ (*CRX) 2 MG, ROPivacaine HCL 1% 2... INFILTRATE (08:43)
[2024-12-29] MEDS: TRANEXAMIC ACID 1,000 MG/10 ML AMPUL 1000 MG IV PUSH (09:25)
--- NOTE | 2024-12-29 09:41 | W.PM.PROC2 ---
Procedure Note - Detailed Date of Procedure 12/29/24 Pre-op Diagnosis right knee oa Post-op Diagnosis Same Procedure Performed R [facility] Surgeon Yamil More MD Anesthesia General Description of Procedure THE RIGHT KNEE WAS PREPPED AND DRAPED IN THE STERILE FASHION. THERE WAS A 10 DEGREE FLEXION CONTRACTURE. A MIDLINE SKIN INCISION WAS MADE. A MEDIAL PARAPATELLAR ARTHROTOMY WAS MADE. THE PATELLA WAS EVERTED. THERE WAS TRICOMPARTMENT DJD. THERE WAS MINIMAL PATELLA DJD. AN INTRAMEDULLARY HAYLIE WAS PLACED IN THE FEMUR. A DISTAL FEMORAL CUT WAS MADE IN 5 DEGREES OF VALGUS REMOVING APPROXIMATELY 9 MM OF BONE FROM THE DISTAL FEMUR. THE FEMUR WAS SIZED TO 67.5. A 67.5 FEMORAL CUTTING BLOCK WAS PLACED IN 3 DEGREES OF EXTERNAL ROTATION AND IN ALIGNMENT WITH DELFINO'S LINE AND THE TRANSEPICONDYLAR AXIS. ANTERIOR POSTERIOR AND CHAMFER CUTS WERE MADE. THE CUTS WERE EXCELLENT. NEXT AN INTRAMEDULLARY CUTTING GUIDE WAS PLACED IN THE TIBIA. A TRANS TIBIAL CUT WAS MADE ALONG THE LONG AXIS OF THE TIBIA. APPROXIMATELY 10 MM OF BONE WAS REMOVED FROM THE HIGH SIDE OF THE TIBIA. THE TIBIA WAS THEN PLANED TO A SMOOTH SURFACE. POSTERIOR FEMORAL OSTEOPHYTES WERE REMOVED FROM THE FEMORAL CONDYLES. A 79 TIBIAL TRIAL WAS PLACED IN ALIGNMENT WITH THE 1/3 MEDIAL ASPECT OF THE TIBIAL TUBERCLE. THEN A 67.5 FEMORAL TRIAL COMPONENT WAS PLACED. BOTH HAD EXCELLENT FITS. EVENTUALLY A 10 MM CR POLYETHYLENE TRIAL COMPONENT WAS PLACED. THE KNEE WAS TAKEN THROUGH A RANGE OF MOTION. THE KNEE CAME OUT TO FULL EXTENSION. THERE WAS NO ABNORMAL TILT TO THE PATELLA. THERE WAS GOOD A/P AND VARUS/VALGUS STABILITY. THERE WAS NO EXCESSIVE ROLL BACK WITH FLEXION. THE TRIAL COMPONENTS WERE REMOVED. THEN A 67.5 FEMORAL COMPONENT AND 79 TIBIAL COMPONENT WITH A 10 CR POLYETHYLENE COMPONENT WERE CEMENTED INTO PLACE. ONCE THE CEMENT WAS HARD THE KNEE WAS TAKEN THROUGH A ROM AGAIN AND FOUND TO BE STABLE WITH NO PATELLA TILT NO EXCESSIVE ROLL BACK WITH FLEXION AND GOOD STABILITY WITH COMPLETE AND FULL EXTENSION. THE KNEE WAS IRRIGATED WITH STERILE BETADINE AND WATER FOR ABOUT 3 MINUTES. THE BLEEDERS WERE CAUTERIZED. THE ARTHROTOMY WAS REPAIRED WITH NUMBER 1 VICRYL. THE SUB CUTANEOUS LAYER WITH 2-0 VICRYL AND THE SKIN WITH3-0 QUIL AND DERMABOND. THE WOUND WAS WASHED AND A STERILE DRESSING WAS APPLIED. PATIENT WAS EXTUBATED. Estimated Blood Loss -150.0 Pathology None sent Complications No immediate complications Condition Stable Disposition PACU
[2024-12-29] MEDS: LACTATED RINGERS 1,000 ML 30 ML IV CONT ×2 (10:00)
--- NOTE | 2024-12-29 10:27 | WPDANESPNB ---
Anes - Peripheral Nerve Block Date/Time: 12/29/24 10:27 I have discussed with the patient/family/POA the placement of a peripheral nerve block for post-operative pain management, including associated risks, benefits, complications, and side effects. Alternative methods of post-operative analgesia were detailed. Questions were solicited and answers provided to the satisfaction of the patient/family/POA. Time-Out: A pre-procedural Time-Out was completed immediately before starting the procedure and confirmed: Patient Identification, Site, Procedure, Patient Position and the Availability of Requisite Equipment. Clinical Indications: Acute post-operative pain management requested by the operative surgeon. Nerve Block Insertion Note Anes-nerve block: adductor canal right Patient position: supine Skin prep: chlorhexidine Needle: 22 gauge, stimulating, insulated echogenic needle. Needle length: 80 mm Technique: ultrasound Technique comment: done in pacu Injectate: bupivacaine 0.5% with epi 5 mcg/ml (30ml no epi) Observations: tolerated well Complications: none Procedure start time:: 1015 Procedure end time:: 2
--- NOTE | 2024-12-29 11:36 | SUR.PHASEII ---
1130 - OT in room working with patient.
[2024-12-29] MEDS: oxyCODONE HCL (*CRX) 5 MG TAB IR PO (12:39)
--- NOTE | 2024-12-29 13:33 | SUR.PHASEII ---
1200 - PT in room working with patient
== END 2024-12-29 13:19 | disposition home or self-care (01) ==
PROVIDERS: PCP Internal Medicine; Visit Provider Orthopaedic Surgery
PROC: (CPT 27447; principal; 2024-12-29 07:30)
DX: M17.11 Unilateral primary osteoarthritis, right knee (principal); G89.18 Other acute postprocedural pain
CPT/HCPCS: 27447; 64447; 36415; 73560; 84295; 86850; 86900; 86901; 97110; 97161; 97165; J0690; A9270; C1713; C1776; J0166; J1885; J2250; J2270; J2704; J2795; J3373; J7120